=== PATIENT | female | born 1950 | race Caucasian/White ===

== ENCOUNTER 2016-06-14 09:03 | Inpatient (IN) | payer MEDICARE ==
[2016-06-14] VITALS (7 sets, daily range): BP systolic 109–124; BP diastolic 45–76; PULSE 80–101; RESP 14–22; O2SAT 93–99
[~2016-06-14] VITALS: Ht 157.5 cm; Wt 68.5 kg
[~2016-06-14 09:03] MED LIST: EXCEDRIN PO; HYDR-4003 PO; HYDR25TA4 PO; LISI10TA PO; LORA0.5T PO; LOVA20TA PO
[2016-06-14] MEDS ORDERED: 0.9% Sodium Chloride 1,000 ML IV ONE ×2 (09:45→11:20)
--- NOTE | 2016-06-14 09:57 | ED.REPORT ---
HPI-General Illness Date of Service Jun 14, 2016 ED Provider: Shashank Ravi MD Pt is a 66 y/o female w/ a hx of pancreatic cancer, HTN, presenting to the ED due to fever onset this morning. She went in to get a biopsy this morning and it was discovered that she had a fever of 38.4 C and oxygen saturation of 86% on RA. She did not realize that she had a fever. She c/o associated mild diaphoresis, mild cough. Pt denies chills, nausea, vomiting, increase in typical abdominal pain, dysuria. Oncologist: Dr. Locke Nursing Notes Stated Complaint: FEVER Chief Complaint: General Complaint Nursing Notes Reviewed: Yes Allergies: Coded Allergies: No Known Allergies (Unverified , 06/14/16) Scheduled Hydrochlorothiazide (Hydrochlorothiazide) 25 Mg Tablet 25 MG PO DAILY Lisinopril (Lisinopril) 10 Mg Tablet 5 MG PO DAILY Lovastatin (Lovastatin) 20 Mg Tablet 20 MG PO HS Scheduled PRN ([Excedrin 250 Mg]) 2 TAB PO DAILY PRN PRN For Headache Hydrocodone-Acetaminophen 5-325 mg (Hydrocodone-Acetaminophen 5-325 mg) 1 Each Tablet 1-2 TABLET PO Q6HRS PRN PRN PRN For Pain General Time Seen by MD: 09:17 Chief Complaint Fever Hx Obtained From: Patient Arrived By: Walk-in Sudden in Onset?: No Onset Occurred: 1 - 4 hours ago Symptom Duration: Since onset Location: : Abdomen Quality: Painful Severity: Current: Mild Severity: Maximum: Mild Recent Healthcare: Recent doctor visit, Recent testing Past Medical History Past Medical History Notes: Oncology: Dr. Locke Past Medical History Pancreatic cancer Hypertension Past Surgical History Partial knee replacement Smoking History Former Smoker Social History Alcohol Use: 1-3 per day Drug Use: Denies drug use Ambulatory Status Independent Review of Systems Full Review of Systems Constitutional: Reports: Fever, Denies: Chills Respiratory: Reports: Non-productive cough, Denies: Shortness of breath Cardiovascular: Denies: Chest pain, Dyspnea on exertion GI: Denies: Abdominal pain, Nausea, Vomiting Female: Denies: Dysuria Complete sys rev & neg: except as marked. Physical Exam Vital Signs Vital Signs Date Time Temp Pulse Resp B/P Pulse Ox O2 Delivery O2 Flow Rate FiO2 06/14/16 12:14 86 14 114/45 95 Room Air 06/14/16 11:07 36.8 90 22 115/48 99 Room Air 06/14/16 09:17 37.7 101 22 112/54 93 Nasal Cannula 3 Initial VS: Reviewed, Vital signs abnormal Head / Eyes: Atraumatic, Normocephalic, PERRL ENT: Mucous membranes moist, Conjunctiva normal, No scleral icterus Neck: Supple, Full range of motion Cardiovascular: Regular rate & rhythm, Heart sounds normal, Intact distal pulses Extremities: Vascular intact, Neuro intact, No swelling, No tenderness Neurologic: Alert, Oriented, Nonfocal Psychiatric: Mood/affect normal, Behavior normal, Normal thought content General/Constitutional: Awake, Alert, No acute distress, Cooperative, Not toxic appearing Respiratory / Chest: Atraumatic, Breath sounds = bilat, No respiratory distress , No retractions, No stridor, No chest tenderness, No chest wall deformity, No crepitus Scattered wheezes and bibasilar crackles 88% O2 saturation on RA Abdomen: Atraumatic, Soft, No guarding, No rebound, No distention, No palpable mass Mild RUQ and epigastric tenderness - she states this is not increased from her typical Skin: Atraumatic, Color NL, No rash, Warm Color / Condition: Positive: Diaphoresis present (mild) Interpretation & Diagnostics Lab Results Interpretation Result Diagram: 06/14/16 1032 06/14/16 1032 Test 06/14/16 00:00 06/14/16 10:03 06/14/16 10:32 Urine Legionella pneumophilia Ag Negative (Negative) Urine Color Yellow (YELLOW) Urine Appearance Hazy (CLEAR,HAZY) Urine pH 6.0 (5.0-8.0) Urine Specific Joffre 1.010 (1.003-1.035) Urine Protein Negativemg/dL (NEG,TRACE) Urine Glucose (UA) Negativemg/dL (NEGATIVE) Urine Ketones Negativemg/dL (NEGATIVE) Urine Occult Blood Trace (NEGATIVE) Urine Nitrite Negative (NEGATIVE) Urine Bilirubin Negative (NEGATIVE) Urine Urobilinogen Normalmg/dL (NORMAL) Urine Leukocyte Esterase Trace (NEGATIVE) Urine RBC 0-2/hpf (0-2) Urine WBC 0-5/hpf (0-5) Urine Epithelial Cells Occasional/hpf (NONE-MOD) Urine Crystals None seen (NONE SEEN) Urine Bacteria Moderate/hpf (NONE-FEW) Urine Hyaline Casts None/lpf (NONE) Urine Granular Casts None seen (NONE SEEN) Urine Waxy Casts None seen (NONE SEEN) Urine Red Blood Cell Casts None seen (NONE SEEN) Urine White Blood Cell Casts None seen (NONE SEEN) Urine Mucus None seen (None Seen) Urine Trichomonas None seen (NONE SEEN) Urine Yeast None (NONE SEEN) Urinalysis Comment None Urine Culture Reflexed Indicated White Blood Count 7.9th/mm3 (3.8-10.1) Red Blood Count 4.45mil/mm3 (3.90-5.20) Hemoglobin 12.1g/dL (12.0-15.6) Hematocrit 36.7% (35.0-46.0) Mean Corpuscular Volume 82.5fL (81-100) Mean Corpuscular Hemoglobin 27.2pg (27.0-35.0) Mean Corpuscular Hemoglobin Concent 33.0% (32.0-37.0) Red Cell Distribution Width 14.4% (12.3-15.4) Platelet Count 284bil/L (150-400) Neutrophils (%) (Auto) 78.8% (40-74) Lymphocytes (%) (Auto) 12.1% (14-46) Monocytes (%) (Auto) 8.3% (4-12) Eosinophils (%) (Auto) 0.1% (0-5) Basophils (%) (Auto) 0.4% (0-3) Sodium Level 137mEq/L (134-144) Potassium Level 3.8mEq/L (3.5-5.2) Chloride Level 96mEq/L (97-108) Carbon Dioxide Level 24mmol/L (18-29) Blood Urea Nitrogen 15mg/dL (8-27) Creatinine 0.75mg/dL (0.57-1.00) Estimat Glomerular Filtration Rate 111mL/min (>59) Glucose Level 112mg/dL (60-99) Lactic Acid Level 0.8mmol/L (0.4-2.0) Calcium Level 9.1mg/dL (8.5-10.1) Magnesium Level 2.0mg/dL (1.6-2.6) Total Bilirubin 0.4mg/dL (0.0-1.2) Aspartate Amino Transf (AST/SGOT) 29U/L (0-50) Alanine Aminotransferase (ALT/SGPT) 23U/L (0-32) Alkaline Phosphatase 136U/L (25-165) Total Protein 7.0g/dL (6.4-8.4) Albumin 3.9g/dL (3.4-5.0) Lipase 140U/L (13-60) X-Ray Chest Interpretation Chest Xray Interpretation: IMPRESSION: Mild stranding at the left lung base best seen behind the heart and also extending laterally. Mild or early pneumonia is the presumed cause. Dictated by: Mumtaz Mariano M.D. on 06/14/2016 at 10:28 Approved by: Mumtaz Mariano M.D. on 06/14/2016 at 10:28 View: Portable, AP & lat Interpretation / Wet Read by: Interpret - Radiologist CT Chest Interpretation IMPRESSION: 1. No acute process. No pulmonary embolus. 2. No change in multiple metastases within the abdomen, and addition to the pancreatic tail mass. Dictated by: Grant Espinal M.D. on 06/14/2016 at 12:05 Approved by: Grant Espinal M.D. on 06/14/2016 at 12:10 Study type: CT pulm angiogram Interpretation / Wet Read by: Interpret - Radiologist Re-Eval/Medical Decision Med Decision/Clinical Course 66-year-old oncology patient with pancreatic mass, fever and hypoxemia. She does have an infiltrate on her chest x-ray. Surprisingly well. However, her O2 sats are below normal. CT angio exculed PE. Bili normal, doubt source is biliary. Started IV antibiotics, will admit Time of Eval: 11:30 Re-Evaluation/Progress Note: Pt rechecked. Pt informed of need for admission for further evaluation. Pt understands and agrees with plan for admission. All questions addressed. Consultation #1: Referral / Consult Name: Fernando Rider MD Call Returned at: 11:28 Client Success Director: Agrees with eval, Agrees with plan Note: Case discussed with pt's oncologist. Agrees with plan for admission and will consult. Requests a flu swab. Consultation #2: Referral / Consult Name: Genesis Braswell DO Consulted With: Hospitalist Call Returned at: 12:17 Client Success Director: Will see patient, Agrees with eval, Agrees with plan, Accepts admit Counseled Regarding: Diagnosis, Lab results, Need for admission Discharge & Departure Primary Impression: Left lower lobe pneumonia Pneumonia type: due to unspecified organism Qualified Code: J18.9 - Pneumonia, unspecified organism Additional Impressions: Hypoxia Metastasis from pancreatic cancer Disposition: ADMITTED TO HOSPITAL Discharge Condition All VS Reviewed: Yes Condition: Stable Referrals: Sanju Longo MD (PCP) Scribe Attestation Portions of this note were transcribed by Familia Scherer. I, Dr. Ravi personally performed the history, physical exam and medical decision-making; I reviewed and confirmed the accuracy of the information in the transcribed note. Signed by Samantha King, 06/14/16 - 1000 copies to: Fernando Rider MD; Sanju Longo MD, Donald L MD Jun 14, 2016 09:57 FAMILIA SCHERER Jun 14, 2016 10:03
--- NOTE | 2016-06-14 10:30 | DRSVH ---
PROCEDURE: X-RAY CHEST, TWO VIEWS ([id number]) INDICATIONS: fever and cough TECHNIQUE: 2 views of the chest were acquired. COMPARISON: Outside Film, CR, XR CHEST 2VW, 06/03/2016, 9:39. FINDINGS: Surgical changes and devices: None. Lungs and pleura: No pleural effusions or pneumothorax. Lungs are abnormal with mild left lower lob e pneumonia pattern stranding behind the heart. Mediastinum: Mediastinal contours are normal. Heart size is normal. Bones and chest wall: No suspicious bony abnormalities. Soft tissues appear unremarkable. IMPRESSION: Mild stranding at the left lung base best seen behind the heart and also extending latera lly. Mild or early pneumonia is the presumed cause. Dictated by: Mumtaz Mariano M.D. on 06/14/2016 at 10:28 Approved by: Mumtaz Mariano M.D. on 06/14/2016 at 10:28
[2016-06-14 10:35] LABS: APPEARANCE,URINE HAZY (CLEAR,HAZY); COLOR,URINE YELLOW (YELLOW); OCCULT BLOOD,URINE TRACE (NEGATIVE); UROBILINOGEN,URINE NORMAL (NORMAL)
[2016-06-14 10:36] LABS: BASOPHILS % (AUTO) 0.4 % (0-3); EOSINOPHILS % (AUTO) 0.1 % (0-5); MONOCYTES % (AUTO) 8.3 % (4-12); Mean Corpuscular Hemoglobin 27.2 pg (27.0-35.0); Mean Corpuscular Volume 82.5 fL (81-100); NEUTROPHILS % (AUTO) 78.8 % (40-74); Platelet Count 284 bil/L (150-400)
[2016-06-14] MEDS ORDERED: levoFLOXacin Inj 750 MG in IV Premix 1 EACH IV ONE (11:10)
[2016-06-14] MEDS ORDERED: HYDROcodone-APAP 5-325 mg Tablet PO ONE (11:35)
--- NOTE | 2016-06-14 12:11 | DRSVH ---
PROCEDURE: CT ANGIO CHEST PULMONARY EMBOLISM ([id number]) INDICATIONS: hypoxemia, malignancy TECHNIQUE: After the administration of intravenous contrast, 2 mm thick sections acquired from the pulmonary api ttae to the posterior costophrenic angles. 3-dimensional maximum intensity projection (MIP) coronal a nd sagittal reformats were then acquired through the thorax. For radiation dose reduction, the follo wing was used: automated exposure control, adjustment of mA and/or kV according to patient size. COMPARISON: Outside Film, CT, CT CHEST ABD PELVIS W CON, 06/03/2016, 13:34. FINDINGS: Image quality: Excellent. Pulmonary arteries: Pulmonary arteries are normal in size, and demonstrate no intraluminal filling d efects to suggest central pulmonary embolism. Lungs and pleura: Increased bibasilar streaky opacities present, consistent with atelectasis superimp osed on scarring. Scarring within the right upper lobe anteromedially is present. Scarring within the right upper lobe anteriorly is present. Scarring within the lateral lingula is present. No change in 2 mm diameter nodule within the right lower lobe posteriorly.. No pleural effusions or pneumothorax . Central and peripheral airways are patent. Mediastinum: Heart size is normal, without pericardial effusion. No mediastinal or hilar adenopathy . Thoracic aorta is normal in caliber and enhancement. Esophagus is normal in caliber, without hiat al hernia. Bones and chest wall: No suspicious bony lesions. Ribs and thoracic spine appear intact throughout. Thyroid gland is within normal limits. No axillary or supraclavicular adenopathy. Abdomen: Visualized portions of the upper abdomen demonstrate multiple hepatic, pancreatic tail, spl enic hilar, portocaval tayler, and left adrenal masses, as before. IMPRESSION: 1. No acute process. No pulmonary embolus. 2. No change in multiple metastases within the abdomen, and addition to the pancreatic tail mass. Dictated by: Grant Espinal M.D. on 06/14/2016 at 12:05 Approved by: Grant Espinal M.D. on 06/14/2016 at 12:10
[2016-06-14] MEDS ORDERED: Polyethylene Glycol (PEG) 17 Gm Powder PO PRN (12:50)
[2016-06-14] MEDS ORDERED: Ondansetron 2 mg/mL 2 mL Inj IVPUSH PRN (12:50)
[2016-06-14] MEDS ORDERED: Alum-Mag Hydrox-Simeth 30 mL Suspension PO PRN (12:50)
[2016-06-14] MEDS ORDERED: Albuterol 2.5 mg/3 mL Inhalation Solution NEB PRN (12:55)
[2016-06-14] MEDS ORDERED: Albuterol-Ipratropium 3 mL Inhalation Solution NEB PRN (12:55)
--- NOTE | 2016-06-14 13:04 | PCM.HPMED ---
Subjective Date of Service Jun 14, 2016 Primary Provider: Admitting Physician: Genesis Braswell DO Primary Care Physician: Sanju Longo MD Attending Physician: Genesis Braswell DO Admit Status: From the Emergency Department Chief Complaint: Fever, community-acquired pneumonia, recent diagnosis of pancreatic cancer, hypertension History of Present Illness: The patient is a 66-year-old lady w with multiple mass lesions in the liver and a mass in the tail of the pancreas highly suspicious for metastatic pancreatic cancer of the tail of the pancreas. She was on a vacation [facility] 2 weeks ago as mentioned she was diagnosed with pancreatic cancer. Patient was subsequently seen by oncologist, Dr. Jacklyn alvarez. The patient was waiting to undergo an ultrasound-guided biopsy of one of the liver lesions for tissue diagnosis and preparation of initiation of treatment. She had been sent for portal catheter placement for surgical consultation and a port placement is planned for June 30. She was in the hospital for the ultrasound-guided biopsy when she was noted to have cough, low oxygenation of 88%, elevated temperature and thus was sent to the ER. In the ER patient was noted to have 101 F, white count 7.9 lipase was 140 bilirubin levels were normal chest x-ray showed left basilar infiltrate and concern for mild pneumonia. CTA of chest showed no acute findings. She was noted to be saturating 86-92% on room air. She was given 1 dose of Levaquin 750 mg IV and hydrocortisone for pain. The patient was sent for blood culture. Patient is admitted to [facility] with an inpatient for hypoxia secondary to community- acquired pneumonia , pancreatic cancer metastases to liver that will require a biopsy. The patient is comfortabl, not coughing. States her hypertension is well controlled on her current medication. Review of Systems: Review of systems is negative for urinary symptoms, constipation, diarrhea, nausea and vomiting. She is endorsing some level of cough, nonspecific abdominal pain which she is rating it 5 out of 10 currently. She denies chest pain dizziness. States her mood has been low hearing the cancer news and she feels numb at times. Allergies Coded Allergies: No Known Allergies (Unverified , 06/14/16) PMH Social History Hx Alcohol Use: Yes (drink of hard liquor daily) Hx Substance Use: No Smoking Status: Former Smoker Exam Vital Signs Vital Sign - Last Date Time Temp Pulse Resp B/P Pulse Ox O2 Delivery O2 Flow Rate FiO2 06/14/16 12:14 86 14 114/45 95 Room Air 06/14/16 11:07 36.8 06/14/16 09:17 3 Exam Gen.: No acute distress HEENT exopthalmosis of eyes Heart: Regular rate and rhythm no S3-S4 murmurs Lungs: Clear to auscultation, L sided crackles , negative for wheezes Abdomen: Mild tenderness over the epigastrium, normal bowel sounds, nondistended ext: Negative for edema Psych: Mood depressed, affect is sad Neuro: No focal deficits Lab and Diagnostics Result Diagram: 06/14/16 1032 06/14/16 1032 Microbiology Blood cultures remained pending X-Rays, CTs and MRIs [facility] Diagnostic Imaging Department [place], [place] [id number] Patient Name: ELLYN DOUGLAS MR#: [id number] Location: [facility] [place] Ordering Phys: Shashank Ravi MD Date of Service: 06/14/16 0945 PROCEDURE: X-RAY CHEST, TWO VIEWS ([id number]) INDICATIONS: fever and cough TECHNIQUE: 2 views of the chest were acquired. COMPARISON: Outside Film, CR, XR CHEST 2VW, 06/03/2016, 9:39. FINDINGS: Surgical changes and devices: None. Lungs and pleura: No pleural effusions or pneumothorax. Lungs are abnormal with mild left lower lobe pneumonia pattern stranding behind the heart. Mediastinum: Mediastinal contours are normal. Heart size is normal. Bones and chest wall: No suspicious bony abnormalities. Soft tissues appear unremarkable. IMPRESSION: Mild stranding at the left lung base best seen behind the heart and also extending laterally. Mild or early pneumonia is the presumed cause. Dictated by: Mumtaz Mariano M.D. on 06/14/2016 at 10:28 Approved by: Mumtaz Mariano M.D. on 06/14/2016 at 10:28 Assessment & Plan #1 hypoxia secondary to pneumonia, community-acquired: -- Continue Levaquin 750 every 24 hours -- Urine strep, Legionella antigen were ordered -- Respiratory panel is ordered -- Oxygen as needed -- Albuterol, DuoNeb treatments -- Follow blood cultures -- Tessalon Perles for cough 2. Hypertension: Plan to continue her home medications 3. Hyperlipidemia: We do not have her medication and our formulary. Will discuss the patient tomorrow. 4. Recent diagnosis of pancreatic cancer with liver metastases: -- Dr. Jacklyn Almanza, oncologist is consulted -- Pain control with [place] 5-3 25 one to 2 tablets every 4 when necessary -- Enoxaparin as 40 mg daily subcutaneous DVT prophylaxis enoxaparin IV fluids: In essence 100 mL per hour Diet: Heart healthy Disposition: Expect that we will get the results back and patient would be able to go home in 3 days. Pain Evaluation: Adequate Pain Control VTE Prophylaxis: Sub-Q Enoxaparin Resuscitation Status: CPR: Attempt Resuscitation Genesis Braswell DO Jun 14, 2016 13:04
[2016-06-14] MEDS: 0.9% Sodium Chloride 1,000 ML IV SCH ×2 (13:50→23:50)
--- NOTE | 2016-06-14 15:10 | NUR ---
Admit Pt admitted from ED to [facility] unit - arrived via gurney to room 1016 at 1300. A&ox3, LAYTON, Up to BR upon arrival, IV infusing Levaquin to Right AC = patent no issues, States pain present - but tolerable, VSS - on RA at this time with satjessica WNL, All belongings brought over with pt, Admission documentation completed by Admin RN prior to pt arrival. This RN spoke with re: diet order - order obtained and pt able to order lunch as she was hungry after being NPO for bx that was cancelled. Pt oriented to room. Call light in reach and /family at bedside. Care continues.
[2016-06-14] MEDS: HYDROcodone-APAP 5-325 mg Tablet PO PRN ×3 (15:21→21:55)
--- NOTE | 2016-06-14 17:53 | CCS NOTE ---
[facility] [address] [address] MEDICAL ONCOLOGY OFFICE NOTE PATIENT: ELLYN DOUGLAS : 1950 MR#: [id number] DATE: 06/14/2016 JOB ID: [id number] DATE: 06/14/2016 HISTORY OF PRESENT ILLNESS: The patient is a 66-year-old lady whom I had recently seen in initial consultation in the Cancer Center on June 08, 2016, with multiple mass lesions in the liver and a mass in the tail of the pancreas highly suspicious for metastatic pancreatic cancer of the tail of the pancreas. The patient was waiting to undergo an ultrasound-guided biopsy of one of the liver lesions for tissue diagnosis and preparation of initiation of treatment. She had been sent for portal catheter placement for surgical consultation and a port placement is planned for June 30. I was contacted from the radiology suite this early this morning as the patient was there to undergo the ultrasound-guided liver biopsy with concerns that the patient appeared too ill, with some fever and appearing ill, with also low oxygenation of 88%. I spoke with Solan Eddy RPA, who reported the patient was having a cough and it would not be safe to secure the biopsy due to motion of the cough causing potential liver issues. Therefore, the biopsy was postponed and the patient was sent to the ER. I spoke with the ER physician. The patient was sent for blood culture. I talked to Dr. Ravi of the ER again later in the morning, where the chest x-ray had shown a slight abnormality in the left lung base, but that was too subtle to explain the patient having room-air hypoxia issues. Therefore, I agreed that it would be very useful to obtain a CT angiogram of the chest to rule out PE given the increased risk with metastatic presumed pancreatic cancer. CT angio of the chest was performed showing no evidence of pulmonary embolism. When I visited the patient by the end of the day in the hospital, she appeared much more stable and reports that all these symptoms started early this morning. Even yesterday she was not having any symptoms of an infection. In Radiology she had a temperature of 38.4 and an O2 sat was 86% on room air before receiving any sedation. She was also slightly tachycardic. LABORATORIES: Showed yesterday a white count of 10.5 and today show a white count of 7.9, hemoglobin 12, platelets 284. Chemistry without any significant abnormalities. Blood cultures are pending. Influenza screen was negative. Urinalysis did not show any evidence of UTI, but mild bacteria with culture pending. OBJECTIVE: On exam she is currently having a temperature of 37.7. Does not appear ill. O2 sat is 94% on 2 L. Lungs show coarse breath sounds on the bases. No wheezing. Heart regular. Abdomen soft. ASSESSMENT AND PLAN: A 66-year-old lady with presumed metastatic pancreatic cancer, tissue diagnosis pending. Her primary tumor is in the tail of the pancreas and therefore she has no biliary obstruction. Unfortunately, we had to cancel the ultrasound-guided biopsy of the liver mass for tissue diagnosis early this morning for the above-mentioned symptoms of fever and room air hypoxia and the patient appearing ill. A CT angio has ruled out PE. She might have a respiratory infection that could be either viral or bacterial. When I saw her in the afternoon, she did not appear toxic. I fully agree with the empiric antibiotics with levofloxacin and the prophylactic dose of Lovenox for thrombosis prophylaxis. I am hoping that if her condition improves, as I had spoken to Sloan Eddy, CORY of Radiology, to consider doing the ultrasound-guided liver biopsy before discharge from this hospitalization.
[2016-06-15] VITALS (8 sets, daily range): BP systolic 104–134; BP diastolic 62–70; PULSE 74–94; RESP 16–19; O2SAT 87–97
--- NOTE | 2016-06-15 02:32 | NUR ---
Pain Patient complaining of 8/10 abd pain @ HS. Received two Pall Mall with effective results. Resting with eyes closed upon reassessment.
[2016-06-15] MEDS: HYDROcodone-APAP 5-325 mg Tablet PO PRN ×6 (02:40→21:15)
--- NOTE | 2016-06-15 05:29 | PCM.PNMED ---
Subjective Date of Service Jun 15, 2016 Subjective Patient is seen and examined yesterday for respiratory panel returned positive for RSV and now she is under respiratory isolation. She states she is feeling a lot better not coughing as much, however her appetite is not great. She has met with her oncologist today who informed her that she can get the ultrasound- guided biopsy done on Monday. She had no more fevers after coming here. Exam Vital Signs Vital Sign - Last Date Time Temp Pulse Resp B/P Pulse Ox O2 Delivery O2 Flow Rate FiO2 06/15/16 00:20 36.4 80 16 117/70 95 Room Air 06/14/16 09:17 3 Intake and Output 06/14/16 06/14/16 06/15/16 Cumulative From/Thru 15:00 23:00 07:00 06/14/16 09:17 - 06/14/16 18:38 Intake Total 1000 ml 839 ml 1839 ml Output Total 200 ml 200 ml Balance 1000 ml 639 ml 1639 ml Intake Oral 236 ml 236 ml IV Total 1000 ml 603 ml 1603 ml Output Urine Total 200 ml 200 ml # Voids 2 2 # Bowel Movements 1 1 Exam Gen.: No acute distress, sitting up in bed reading HEENT: Normocephalic, atraumatic Heart: Regular rate and rhythm no S3-S4 murmurs Lungs: Positive for diffuse wheezing, negative for crackles at [place] Abdomen: Nontender nondistended, normal bowel sounds Psych: Negative for anxiety Neuro: No focal deficits IVs and Medications IV Fluids None Medications Reviewed: Medications were reviewed in detail Lab and Diagnostics Laboratory Tests Test 06/15/16 06:03 White Blood Count 5.4th/mm3 (3.8-10.1) Red Blood Count 3.78mil/mm3 (3.90-5.20) Hemoglobin 10.2g/dL (12.0-15.6) Hematocrit 31.9% (35.0-46.0) Mean Corpuscular Volume 84.4fL (81-100) Mean Corpuscular Hemoglobin 27.0pg (27.0-35.0) Mean Corpuscular Hemoglobin Concent 32.0% (32.0-37.0) Red Cell Distribution Width 14.6% (12.3-15.4) Platelet Count 227bil/L (150-400) Neutrophils (%) (Auto) 65.3% (40-74) Lymphocytes (%) (Auto) 18.7% (14-46) Monocytes (%) (Auto) 13.5% (4-12) Eosinophils (%) (Auto) 1.9% (0-5) Basophils (%) (Auto) 0.4% (0-3) Sodium Level 138mEq/L (134-144) Potassium Level 3.9mEq/L (3.5-5.2) Chloride Level 101mEq/L (97-108) Carbon Dioxide Level 24mmol/L (18-29) Blood Urea Nitrogen 11mg/dL (8-27) Creatinine 0.67mg/dL (0.57-1.00) Estimat Glomerular Filtration Rate 126mL/min (>59) Glucose Level 98mg/dL (60-99) Calcium Level 8.3mg/dL (8.5-10.1) Total Bilirubin 0.2mg/dL (0.0-1.2) Aspartate Amino Transf (AST/SGOT) 29U/L (0-50) Alanine Aminotransferase (ALT/SGPT) 20U/L (0-32) Alkaline Phosphatase 112U/L (25-165) Total Protein 5.2g/dL (6.4-8.4) Albumin 3.1g/dL (3.4-5.0) Microbiology 06/14/16 Blood Culture - Preliminary, Resulted NO GROWTH AFTER 24 HOURS 06/15/16 Adenovirus DNA (PCR) - Final, Complete Not Detected 06/15/16 Coronavirus 229E PCR - Final, Complete Not Detected 06/15/16 Coronavirus HKU1 PCR - Final, Complete Not Detected 06/15/16 Coronavirus NL63 PCR - Final, Complete Not Detected 06/15/16 Coronavirus OC43 PCR - Final, Complete Not Detected 06/15/16 Influenza Type A (PCR) - Final, Complete Not Detected 06/15/16 Influenza Type B (PCR) - Final, Complete Not Detected 06/15/16 Human Metapneumovirus (PCR) (WESLEY) - Final, Complete Not Detected 06/15/16 Rhinovirus (PCR)(WESLEY) - Final, Complete Not Detected 06/15/16 Parainfluenza Virus Type 1 (PCR) - Final, Complete Not Detected 06/15/16 Parainfluenza Virus Type 2 (PCR) - Final, Complete Not Detected 06/15/16 Parainfluenza Virus Type 3 (PCR) - Final, Complete Not Detected 06/15/16 Parainfluenza Virus Type 4 (NAAT) - Final, Complete Not Detected 06/15/16 Respiratory Syncytial Virus (PCR)CA - Final, Complete Respiratory Syncytial Virus 06/15/16 Chlamydia pneumoniae (PCR) - Final, Complete Not Detected 06/15/16 Mycoplasma pneumoniae DNA Detection - Final, Complete 06/14/16 Urine Culture - Final, Complete Mixed Urogenital Shey Result Diagram: 06/14/16 1032 06/14/16 1032 Microbiology Blood cultures remained pending X-Rays, CTs and MRIs [facility] Diagnostic Imaging [place] [address] Patient Name: ELLYN DOUGLAS MR#: [id number] Location: [facility] [place] Ordering Phys: Shashank Ravi MD Date of Service: 06/14/16 0945 PROCEDURE: X-RAY CHEST, TWO VIEWS ([id number]) INDICATIONS: fever and cough TECHNIQUE: 2 views of the chest were acquired. COMPARISON: Outside Film, CR, XR CHEST 2VW, 06/03/2016, 9:39. FINDINGS: Surgical changes and devices: None. Lungs and pleura: No pleural effusions or pneumothorax. Lungs are abnormal with mild left lower lobe pneumonia pattern stranding behind the heart. Mediastinum: Mediastinal contours are normal. Heart size is normal. Bones and chest wall: No suspicious bony abnormalities. Soft tissues appear unremarkable. IMPRESSION: Mild stranding at the left lung base best seen behind the heart and also extending laterally. Mild or early pneumonia is the presumed cause. Dictated by: Mumtaz Mariano M.D. on 06/14/2016 at 10:28 Approved by: Mumtaz Mariano M.D. on 06/14/2016 at 10:28 Assessment & Plan #1 acute hypoxia secondary to pneumonia, community-acquired: -- Continue Levaquin 750 every 24 hours -- Urine strep, Legionella antigen were ordered: The status of both negative -- Respiratory panel is ordered: Positive for RSV -- Oxygen as needed -- Albuterol, DuoNeb treatments -- Follow blood cultures: Negative to date -- Ced Chavis for cough Acute RSV infection: -- Patient's hypoxia could be secondary to both viral and bacterial etiologies. 2. Hypertension: Plan to continue her home medications 3. Hyperlipidemia: We do not have her medication and our formulary. Will discuss this with patient and her next visit 4. Recent diagnosis of pancreatic cancer with liver metastases: -- Dr. Jacklyn Almanza, oncologist is consulted: We appreciate their recommendations -- Pain control with [place] 5-3 25 one to 2 tablets every 4 when necessary -- Enoxaparin as 40 mg daily subcutaneous DVT prophylaxis enoxaparin IV fluids: None Diet: Heart healthy Disposition: Expect that patient would be able to go home in 2 days. VTE Prophylaxis: Sub-Q Enoxaparin VTE Mechanical Devices: Intermittant Pneumatic CD Resuscitation Status: CPR: Attempt Resuscitation Genesis Braswell DO Jun 15, 2016 05:29
[2016-06-15 06:26] LABS: BASOPHILS % (AUTO) 0.4 % (0-3); EOSINOPHILS % (AUTO) 1.9 % (0-5); MONOCYTES % (AUTO) 13.5 % (4-12); Mean Corpuscular Volume 84.4 fL (81-100); NEUTROPHILS % (AUTO) 65.3 % (40-74); Platelet Count 227 bil/L (150-400)
[2016-06-15] MEDS: levoFLOXacin Inj 750 MG in IV Premix 1 EACH IV SCH (07:58)
--- NOTE | 2016-06-15 09:50 | NUR ---
Micro result/Pain/Sp02 Micro lab called with +RSV result at this time. Reported to MD. Patient now on droplet precautions. Pain consistently 4-6/10. Patient taking x1 [place] only to maintain pain control as x2 makes her too sleepy. Continues to have intermittent cough. Denies SOB except with exertion, becomes easily fatigued, CPOx on with Sp02 at 94% on RA.
--- NOTE | 2016-06-15 13:18 | NUR ---
Social Work - Initial Assessment Data: Pt is a 66 y/o female admitted on 06/14/16 for pneumonia and pancreatic cancer per H&P. Insurance is Medicare and AARP supplemental and she could not identify her PCP but confirm she does have one. EMR reviewed. Pt's readmission score is not available. CARLITA mt with pt at bedside to discuss discharge planning. CARLITA role explained. Pt is alert and oriented x3. Pt resides in a single level condo with no internal or external stairs. Pt reports no issues with ambulation, is independent at baseline, and remains independent with ADLs. Pt has no HH or SNF history. Pt reports that she and her are in process of completing DPOA/Advanced Directive and will provide a copy to the hospital when completed. Pt has no fci care or VA benefits. Per oncology she is scheduled to undergo biopsy. Pt's Alex [phone] to provide transport home at discharge in POV. No needs anticipated at this time. SW provided phone number and plan on white board in room. SW will continue to follow. Assessment: Pt who is independent at baseline. Plan: Pt's will provide transport home at discharge in POV. No needs anticipated. SW will continue to follow. NANCY Guerrero Addendum: 06/15/16 at 1349 by LU HAHN SS Amended: Links added.
--- NOTE | 2016-06-15 18:30 | CCS NOTE ---
[facility] [address] [address] MEDICAL ONCOLOGY OFFICE NOTE PATIENT: ELLYN DOUGLAS : 1950 MR#: [id number] DATE: 06/14/2016 JOB ID: [id number] DATE: 06/15/2016 SUBJECTIVE: The patient has been feeling better, has remained afebrile. Her respiratory culture was positive for RSV. Influenza was negative. Her O2 sat is improved. She is now 93% to 95% on room air. LABORATORIES: Show a drop of hemoglobin to 10.2, likely due to volume expansion. Electrolytes, creatinine and LFTs stable. EXAMINATION: On exam, she is more comfortable, does not appear toxic and states that her cough is reduced. No rash. ASSESSMENT AND PLAN: A 66-year-old lady with mass in the tail of the pancreas and multiple liver masses pending tissue biopsy for confirmation of diagnosis of suspected pancreatic cancer. Unfortunately then, she showed for the biopsy yesterday and had fever and cough and biopsy was canceled and she was admitted through the emergency department. It turns out that this was an RSV infection and she has become quickly afebrile. Her cough is getting better, but still not completely resolved. Her room-air hypoxia has resolved as well. Her CT angio of the chest did not show a pulmonary embolism. I think per discretion of the hospitalist team, she could probably be discharged tomorrow. I would appreciate if her ultrasound-guided biopsy of the liver mass could be scheduled upon discharge for this coming Monday with Sloan Eddy at Radiology on June 20.
--- NOTE | 2016-06-16 02:29 | NUR ---
Pain Patient rating abd pain 8/10. Requesting two [place] tabs for pain management @ HS. Noted to be resting with eyes closed upon reassessment. No further c/o breakthrough pain. Will continue Q1hour rounding.
--- NOTE | 2016-06-16 05:18 | PCM.PNMED ---
Subjective Date of Service Jun 16, 2016 Exam Vital Signs Vital Sign - Last Date Time Temp Pulse Resp B/P Pulse Ox O2 Delivery O2 Flow Rate FiO2 06/15/16 20:10 36.7 85 17 105/62 93 Room Air 06/14/16 09:17 3 Intake and Output 06/15/16 06/15/16 06/16/16 Cumulative From/Thru 15:00 23:00 07:00 06/14/16 09:17 - 06/15/16 18:57 Intake Total 760 ml 3931 ml Output Total 600 ml 1400 ml Balance 160 ml 2531 ml Intake Oral 760 ml 1196 ml IV Total 2735 ml Output Urine Total 600 ml 1400 ml # Voids 2 # Bowel Movements 1 Lab and Diagnostics Result Diagram: 06/15/16 0603 06/15/16 0603 Microbiology Blood cultures remained pending X-Rays, CTs and MRIs [facility] Diagnostic [place] [address] Patient Name: ELLYN DOUGLAS MR#: [id number] [place] [facility] [place] Ordering Phys: Shashank Ravi MD Date of Service: 06/14/16 0945 PROCEDURE: X-RAY CHEST, TWO VIEWS ([id number]) INDICATIONS: fever and cough TECHNIQUE: 2 views of the chest were acquired. COMPARISON: Outside Film, CR, XR CHEST 2VW, 06/03/2016, 9:39. FINDINGS: Surgical changes and devices: None. Lungs and pleura: No pleural effusions or pneumothorax. Lungs are abnormal with mild left lower lobe pneumonia pattern stranding behind the heart. Mediastinum: Mediastinal contours are normal. Heart size is normal. Bones and chest wall: No suspicious bony abnormalities. Soft tissues appear unremarkable. IMPRESSION: Mild stranding at the left lung base best seen behind the heart and also extending laterally. Mild or early pneumonia is the presumed cause. Dictated by: Mumtaz Mariano M.D. on 06/14/2016 at 10:28 Approved by: Mumtaz Mariano M.D. on 06/14/2016 at 10:28 Assessment & Plan #1 acute hypoxia secondary to pneumonia, community-acquired: -- Continue Levaquin 750 every 24 hours -- Urine strep, Legionella antigen were ordered: The status of both negative -- Respiratory panel is ordered: Positive for RSV -- Oxygen as needed -- Albuterol, DuoNeb treatments -- Follow blood cultures: Negative to date -- Ced Chavis for cough Acute RSV infection: -- Patient's hypoxia could be secondary to both viral and bacterial etiologies. 2. Hypertension: Plan to continue her home medications 3. Hyperlipidemia: We do not have her medication and our formulary. Will discuss this with patient and her next visit 4. Recent diagnosis of pancreatic cancer with liver metastases: -- Dr. Jacklyn Almanza, oncologist is consulted: We appreciate their recommendations -- Pain control with [place] 5-3 25 one to 2 tablets every 4 when necessary -- Enoxaparin as 40 mg daily subcutaneous DVT prophylaxis enoxaparin IV fluids: None Diet: Heart healthy Disposition: Expect that patient would be able to go home in 2 days. VTE Prophylaxis: Sub-Q Enoxaparin VTE Mechanical Devices: Intermittant Pneumatic CD Resuscitation Status: CPR: Attempt Resuscitation Genesis Braswell DO Jun 16, 2016 05:18
[2016-06-16 05:33] VITALS: BP 152/79; PULSE 102; RESP 17; O2SAT 92
[2016-06-16] MEDS: HYDROcodone-APAP 5-325 mg Tablet PO PRN (05:34)
[2016-06-16 06:54] LABS: BASOPHILS % (AUTO) 0.3 % (0-3); EOSINOPHILS % (AUTO) 3.9 % (0-5); MONOCYTES % (AUTO) 13.3 % (4-12); Mean Corpuscular Hemoglobin 26.8 pg (27.0-35.0); Mean Corpuscular Volume 83.4 fL (81-100); NEUTROPHILS % (AUTO) 61.7 % (40-74); Platelet Count 258 bil/L (150-400)
[2016-06-16 07:45] VITALS: PULSE 73; RESP 16; O2SAT 97
[2016-06-16 08:46] LABS: Unsaturated Iron Binding 175.1 ug/dL
--- NOTE | 2016-06-16 09:01 | PCM.DIMED ---
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 Test Results Intake and Output 06/15/16 06/15/16 06/16/16 Cumulative From/Thru 15:00 23:00 07:00 06/14/16 09:17 - 06/16/16 05:33 Intake Total 760 ml 1050 ml 4981 ml Output Total 600 ml 1350 ml 2750 ml Balance 160 ml -300 ml 2231 ml Intake Oral 760 ml 1050 ml 2246 ml IV Total 2735 ml Output Urine Total 600 ml 1350 ml 2750 ml # Voids 2 # Bowel Movements 0 1 Diet Heart Healthy Activity No restrictions Call your provider Fever or Chills, Shortness of breath, Bleeding, Chest pain, Vomitting, Excessive diarrhea, Weakness (unilateral) Patient Instructions Follow-up plan Please schedule U/S guided biopsy on 06/20/[address] Locke after the biopsy (in 7-10 days) F/U with PCP in 2 weeks Genesis Braswell DO Jun 16, 2016 09:01
[2016-06-16] MEDS ORDERED: EXCEDRIN PO (09:03)
[2016-06-16] MEDS ORDERED: LEVO750T9 PO (09:03)
[2016-06-16] MEDS ORDERED: ALBU18HF INH (09:03)
[2016-06-16] MEDS ORDERED: FERR-83 PO (09:05)
[2016-06-16] MEDS ORDERED: POLY17PO6 PO (09:06)
--- NOTE | 2016-06-16 09:10 | PCM.DC.MED ---
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 COMPARISON: Outside Film, CR, XR CHEST 2VW, 06/03/2016, 9:39. FINDINGS: Surgical changes and devices: None. Lungs and pleura: No pleural effusions or pneumothorax. Lungs are abnormal with mild left lower lobe pneumonia pattern stranding behind the heart. Mediastinum: Mediastinal contours are normal. Heart size is normal. Bones and chest wall: No suspicious bony abnormalities. Soft tissues appear unremarkable. IMPRESSION: Mild stranding at the left lung base best seen behind the heart and also extending laterally. Mild or early pneumonia is the presumed cause. Dictated by: Mumtaz Mariano M.D. on 06/14/2016 at 10:28 Approved by: Mumtaz Mariano M.D. on 06/14/2016 at 10:28 Brief History The patient is a 66-year-old lady w with multiple mass lesions in the liver and a mass in the tail of the pancreas highly suspicious for metastatic pancreatic cancer of the tail of the pancreas. She was on a vacation [facility] 2 weeks ago as mentioned she was diagnosed with pancreatic cancer. Patient was subsequently seen by oncologist, Dr. Jacklyn alvarez. The patient was waiting to undergo an ultrasound-guided biopsy of one of the liver lesions for tissue diagnosis and preparation of initiation of treatment. She had been sent for portal catheter placement for surgical consultation and a port placement is planned for June 30. She was in the hospital for the ultrasound-guided biopsy when she was noted to have cough, low oxygenation of 88%, elevated temperature and thus was sent to the ER. In the ER patient was noted to have 101 F, white count 7.9 lipase was 140 bilirubin levels were normal chest x-ray showed left basilar infiltrate and concern for mild pneumonia. CTA of chest showed no acute findings. She was noted to be saturating 86-92% on room air. She was given 1 dose of Levaquin 750 mg IV and hydrocortisone for pain. The patient was sent for blood culture. [place] [facility] [place] for hypoxia secondary to community- acquired pneumonia , pancreatic cancer metastases to liver that will require a biopsy. The patient is comfortabl, not coughing. States her hypertension is well controlled on her current medication. Hospital Course #1 acute hypoxia secondary to pneumonia, community-acquired: -- Continue Levaquin 750 every 24 hours -- Urine strep, Legionella antigen were ordered: The status of both negative -- Respiratory panel is ordered: Positive for RSV -- Oxygen as needed: She did not need oxygen during this stay -- Albuterol, DuoNeb treatments -- Follow blood cultures: Negative to date -- Ced Chavis for cough Acute RSV infection: -- Patient's hypoxia could be secondary to both viral and bacterial etiologies. -- Improving at the time of discharge. Patient is saying her cough is improved she is eating better, breathing better and she experienced no overnight fevers 2. Hypertension: We continued her home medications 3. Hyperlipidemia: Patient is agreeable to starting his statin after she goes home as we do not have her medication formulary 4. Recent diagnosis of pancreatic cancer with liver metastases: -- Dr. Jacklyn Almanza, oncologist is consulted: We appreciate their recommendations: It appears that patient can be discharged home if she is medically okay. She is to follow up on Monday for ultrasounded guided biopsy -- Pain control with [place] 5-3 25 one to 2 tablets every 4 when necessary -- Enoxaparin as 40 mg daily subcutaneous DVT prophylaxis enoxaparin IV fluids: None Diet: Heart healthy Exam Vital Signs (Last) Date Time Temp Pulse Resp B/P Pulse Ox O2 Delivery O2 Flow Rate FiO2 06/16/16 07:45 73 16 97 Room Air 06/16/16 05:33 36.7 152/79 06/14/16 09:17 3 Test 06/14/16 00:00 06/14/16 10:03 06/14/16 10:32 06/16/16 06:13 Urine Legionella pneumophilia Ag Negative (Negative) Urine Color Yellow (YELLOW) Urine Appearance Hazy (CLEAR,HAZY) Urine pH 6.0 (5.0-8.0) Urine Specific [place] 1.010 (1.003-1.035) Urine Protein Negativemg/dL (NEG,TRACE) Urine Glucose (UA) Negativemg/dL (NEGATIVE) Urine Ketones Negativemg/dL (NEGATIVE) Urine Occult Blood Trace (NEGATIVE) Urine Nitrite Negative (NEGATIVE) Urine Bilirubin Negative (NEGATIVE) Urine Urobilinogen Normalmg/dL (NORMAL) Urine Leukocyte Esterase Trace (NEGATIVE) Urine RBC 0-2/hpf (0-2) Urine WBC 0-5/hpf (0-5) Urine Epithelial Cells Occasional/hpf (NONE-MOD) Urine Crystals None seen (NONE SEEN) Urine Bacteria Moderate/hpf (NONE-FEW) Urine Hyaline Casts None/lpf (NONE) Urine Granular Casts None seen (NONE SEEN) Urine Waxy Casts None seen (NONE SEEN) Urine Red Blood Cell Casts None seen (NONE SEEN) Urine White Blood Cell Casts None seen (NONE SEEN) Urine Mucus None seen (None Seen) Urine Trichomonas None seen (NONE SEEN) Urine Yeast None (NONE SEEN) Urinalysis Comment None Urine Culture Reflexed Indicated Lactic Acid Level 0.8mmol/L (0.4-2.0) Magnesium Level 2.0mg/dL (1.6-2.6) Lipase 140U/L (13-60) White Blood Count 5.9th/mm3 (3.8-10.1) Red Blood Count 3.92mil/mm3 (3.90-5.20) Hemoglobin 10.5g/dL (12.0-15.6) Hematocrit 32.7% (35.0-46.0) Mean Corpuscular Volume 83.4fL (81-100) Mean Corpuscular Hemoglobin 26.8pg (27.0-35.0) Mean Corpuscular Hemoglobin Concent 32.1% (32.0-37.0) Red Cell Distribution Width 14.7% (12.3-15.4) Platelet Count 258bil/L (150-400) Neutrophils (%) (Auto) 61.7% (40-74) Lymphocytes (%) (Auto) 20.6% (14-46) Monocytes (%) (Auto) 13.3% (4-12) Eosinophils (%) (Auto) 3.9% (0-5) Basophils (%) (Auto) 0.3% (0-3) Reticulocyte Count,Calculated 0.7% (0.6-2.6) Sodium Level 138mEq/L (134-144) Potassium Level 3.7mEq/L (3.5-5.2) Chloride Level 99mEq/L (97-108) Carbon Dioxide Level 25mmol/L (18-29) Blood Urea Nitrogen 8mg/dL (8-27) Creatinine 0.60mg/dL (0.57-1.00) Estimat Glomerular Filtration Rate 143mL/min (>59) Glucose Level 100mg/dL (60-99) Calcium Level 8.7mg/dL (8.5-10.1) Iron Level 29ug/dL (35-150) Total Iron Binding Capacity 204ug/dL (250-450) Percent Iron Saturation 14%sat (15-50) Unsaturated Iron Binding 175.1ug/dL Ferritin 885ng/mL (13-150) Total Bilirubin 0.2mg/dL (0.0-1.2) Aspartate Amino Transf (AST/SGOT) 28U/L (0-50) Alanine Aminotransferase (ALT/SGPT) 20U/L (0-32) Alkaline Phosphatase 122U/L (25-165) Total Protein 5.6g/dL (6.4-8.4) Albumin 3.4g/dL (3.4-5.0) Microbiology Results Blood cultures remained pending Discharge Medications Discharge Medications Ferrous Sulfate (Ferrous Sulfate) 325 Mg Tablet 325 MG PO BIDWM Prescribed by: GENESIS CONKLIN DO Hydrochlorothiazide (Hydrochlorothiazide) 25 Mg Tablet 25 MG PO DAILY (Reported ) Levofloxacin (Levaquin) 750 Mg Tablet 750 MG PO DAILY Prescribed by: GENESIS CONKLIN DO Lisinopril (Lisinopril) 10 Mg Tablet 5 MG PO DAILY (Reported) Lovastatin (Lovastatin) 20 Mg Tablet 20 MG PO HS (Reported) Polyethylene Glycol 3350 (Miralax) 17 Gm Powd.pack 17 GM PO DAILY Prescribed by: GENESIS CONKLIN DO As needed ([Excedrin 250 Mg]) 2 TAB PO DAILY PRN PRN For Headache Prescribed by: GENESIS CONKLIN DO Albuterol Sulfate (Ventolin HFA Inhaler) 200 Puff/18 Gm Inhaler 1 PUFF INH Q4 PRN PRN For Wheezing Prescribed by: GENESIS CONKLIN DO Hydrocodone-Acetaminophen 5-325 mg (Hydrocodone-Acetaminophen 5-325 mg) 1 Each Tablet 1-2 TABLET PO Q6HRS PRN PRN PRN For Pain (Reported) Additional med instructions Take probiotics with your antibiotic. Followup Plan Follow-up plan Please schedule U/S guided biopsy on 06/20/[address] Locke after the biopsy (in 7-10 days) F/U with PCP in 2 weeks Discharge Diet: Heart Healthy Discharge Activity: No restrictions Genesis Conklin DO Jun 16, 2016 09:10
[2016-06-16 09:12] VITALS: BP 113/68; PULSE 92; RESP 16; O2SAT 92
[2016-06-16] MEDS: levoFLOXacin Inj 750 MG in IV Premix 1 EACH IV SCH (09:14)
--- NOTE | 2016-06-16 10:39 | NUR ---
Social Work- Readiness for Discharge Data: EMR reviewed. Pt is on day 2 of hospitalization for pneumonia and pancreatic cancer per H&P. Pt to discharge later today. Pt reports no issues with ambulation, is independent at baseline, and remains independent with ADLs. Pt's Alex [phone] to provide transport home at discharge in POV. No needs anticipated at this time. SW will continue to follow. Assessment: Pt who is independent at baseline. Plan: Pt's will provide transport home at discharge in POV. No needs anticipated. SW will continue to follow. NANCY Koehler
--- NOTE | 2016-06-16 11:13 | NUR ---
Social Work- Discharge Data: EMR reviewed. Pt is on day 2 of hospitalization for pneumonia and pancreatic cancer per H&P. Pt to discharge today. Pt reports no issues with ambulation, is independent at baseline, and remains independent with ADLs. Pt's Alex [phone] to provide transport home at discharge in POV. No discharge needs. Assessment: Pt who is independent at baseline. Plan: Pt's will provide transport home at discharge in POV. No discharge needs. NANCY Koehler
--- NOTE | 2016-06-16 11:17 | NUR ---
DISCHARGE Patient denies pain. Tolerating liquids PO and her diet well. PO2 on room air-92 %. Denies SOB. Patient has been ambulating independently in the room. Gait is steady. Voiding without any problems. IV saline lock d/cd. Discharge instructions, care notes and prescription was given to the patient and she verbalized understanding. Discharged to home with her and all her personal belongings. (Copy of D/C is in the chart).
[2016-06-20] MEDS ORDERED: LORA0.5T PO (16:28)
[2016-06-21] MEDS ORDERED: MORP-32 PO (08:37)
[2016-06-29] MEDS ORDERED: PROC-4 PO (16:14)
[2016-06-29] MEDS ORDERED: ONDA8TAB7 PO (16:14)
[2016-06-29] MEDS ORDERED: SERT50TA PO (16:14)
[2016-07-20] MEDS ORDERED: DIPH1TAB PO (08:47)
[2016-08-17] MEDS ORDERED: LIPA1CAP3 PO (09:43)
== END 2016-06-16 11:13 | disposition home or self-care (01) | DRG 194 ==
LOC: SED 09:03 → OSC 12:27
PROVIDERS: ADMIT Family Medicine; ATTEND Family Medicine
DX: J18.9 Pneumonia, unspecified organism (principal); C25.2 Malignant neoplasm of tail of pancreas; C78.7 Secondary malignant neoplasm of liver and intrahepatic bile duct; R09.02 Hypoxemia; B97.4 Respiratory syncytial virus as the cause of diseases classified elsewhere; Z87.891 Personal history of nicotine dependence; I10 Essential (primary) hypertension; J22 Unspecified acute lower respiratory infection

== ENCOUNTER 2016-06-30 09:59 | Day surgery (SDC) | payer MEDICARE ==
[2016-06-30] VITALS (11 sets, daily range): BP systolic 114–128; BP diastolic 49–65; PULSE 87–96; RESP 11–16; O2SAT 91–100
[~2016-06-30] VITALS: Ht 157.5 cm; Wt 64.6 kg
[~2016-06-30 09:59] MED LIST changes: +CeFAZolin Inj 2 GM in IV Premix 1 EACH IV ONE; -EXCEDRIN PO; -LOVA20TA PO; +Lactated Ringer's 1,000 ML IV SCH; +MORP-32 PO; +ONDA8TAB7 PO; +PROC-4 PO; +SERT50TA PO
[2016-06-30] MEDS ORDERED: Ondansetron 2 mg/mL 2 mL Inj ONE (10:00)
[2016-06-30] MEDS ORDERED: Dexamethasone 4 mg/mL Inj ONE (10:00)
[2016-06-30] MEDS ORDERED: MetoCLOpramide 5 mg/mL 2 mL Inj ONE (10:00)
[2016-06-30] MEDS ORDERED: Lactated Ringer's 500 ML IV PRN (10:21)
[2016-06-30] MEDS ORDERED: Lactated Ringer's 1,000 ML IV SCH (10:21)
--- NOTE | 2016-06-30 10:21 | PCM.HPANE ---
Patient Data Surgeon Admitting Provider: Attending Provider:Brenden Minaya MD Primary Care Physician:Barney Murry MD Other Provider:Swetha [place] Anesthesia Reason for Visit Pancreatic Cancer Ht/WT & BMI Height (Feet): 5 Height (Inches): 2 Weight (Kilograms): 67.58 Body Mass Index 27.00 Allergies Coded Allergies: No Known Allergies (Unverified , 06/21/16) Past Anesthesia History Anesthesia History: Denies:: Anesthesia Reactions Diabetes History Hx Diabetes?: No MRSA MRSA: No Medications Blood Thinner: Lovenox Hypertension Medication: Yes Home Meds Incl Beta [place]: No Reported Medications Sertraline HCl (Zoloft)50 Mg [id number] Mg PO DAILY Ref 0 06/29/16 Ondansetron ODT (Zofran ODT)8 Mg Tablet8 Mg PO q8hrs prn PRN For Nausea 06/29/16 Prochlorperazine Maleate (Compazine)10 Mg [id number] Mg PO q4hrs prn 06/29/16 Morphine Sulfate ER 15 Mg [id number] Mg PO BID 06/21/16 Lorazepam 0.5 Mg Tablet0.5 Mg PO HS PRN For Insomnia Ref 0 06/20/16 Hydrocodone-Acetaminophen 5-325 mg 1 Each Tablet1-2 Tablet PO Q6HRS PRN PRN For Pain Ref 0 06/08/16 Hydrochlorothiazide 25 Mg [id number] Mg PO DAILY Ref 0 06/08/16 Lisinopril 10 Mg Tablet5 Mg PO DAILY Ref 0 06/08/16 Discontinued Reported Medications Lovastatin 20 Mg Kbgekn29 Mg PO HS #30 TABLET Ref 0 06/08/16 Discontinued Scripts [Excedrin 250 Mg] No Conflict Check2 Tab PO DAILY PRN For Headache #0 Prov:Genesis Braswell DO 06/16/16 History History of ENT Problems?: No HEENT History: Denies:: Sinus Problem Hx of Heart Problems?: Yes Cardiovascular History: Positive for:: Hypertension Denies:: Cardiac Surgery Chest Pain Congestive Heart Failure Edema Heart Murmur Irregular Heartbeat (admits in ST) Pacemaker Rheumatic Fever Hx of Respiratory Problem?: Yes Respiratory History: Positive for:: Pneumonia (06/14/16 admission for) Denies:: Asthma COPD Dyspnea Emphysema Hemoptysis Oxygen Administration Tuberculosis Use of C-PAP Machine Use of Inhalers / NEBS Hx Neurologic Problems?: No Neurological History: Positive for:: Headaches (occasional) Denies:: Alzheimer's Disease CVA Dementia Dizziness Parkinson's Disease Seizures Hx of GI Problems?: Yes Gastrointestinal History: Denies:: Cirrhosis Diverticulitis Gastroesphageal Reflux Gastrointestinal Bleeding Heartburn Hepatitis Hiatal Hernia Rectal Bleeding Other GI Pertinent History: pancreatic ca with mets to liver- current admission problem Hx of Problems?: No Genitourinary History: Denies:: HX of Hemodialysis Kidney Stones Urinary Tract Infection HX of Peritoneal Dialysis: No Female Hx: Denies:: Currently Endometriosis Problems with Breasts? Skin History: Positive for:: History Skin Disorders? (dryness) Denies:: Pressure Ulcers Hx Musculoskeletal Problems?: Yes Musculoskeletal History: Positive for:: Joint Replacement (partial knee replacement) Denies:: Back Injury Musculoskeletal Trauma Hx of Psycho/Social Problems?: No Psycho Social History: Denies:: Anxiety Bipolar Disorder Hx Depression Hx Surgeries?: Yes (partial knee replacement) Hx Any Other Health Problems?: Yes Other History: Positive for:: Cancer (pancreatic current admission problem) Hospitalization Denies:: Endocrine Disease Thyroid Disease History Blood Transfusions: Denies:: Blood Transfuse Reaction Blood Transfusions Hx Diabetes: No Hx Alcohol Use: YesAlcoholic Drinks Per Day: occasionalHx Substance Use: No Smoking Status: Former Smoker Have You Smoked inLast 12 mo: Yes (just recently quit) Stop/Bang Treated for Sleep Apnea?: No Do You Have a CPAP Machine?: No S-Snoring: Do You Snore Loudly: No T-Tired: feel tired, fatigued: No O-Obsered: Observed not breath: No P-Blood Pressure: treated: Yes B- Body Mass Index > 35 kg/m2: No A- Age over 50: Yes N- Neck Large Circumference: No G- Gender Male: No PRASAD Total Score: 2 PRASAD Risk Assessment: Low Risk, <3 Yes Risk Assessment Category Category 1A: Patient has history of documented sleep apnea, and HAS NOT received any narcotic, sedative or anesthesia administration during this stay. Category 1B: Patient has history of documented sleep apnea, and HAS received any narcotic , sedative or anesthesia administration during this stay Category 2: Patient has SUSPECTED Obstructive Sleep Apnea, and HAS received any narcotic , sedative or anesthesia administration during this stay. Category 3: Patient has SUSPECTED Obstructive Sleep Apnea and HAS NOT received narcotic, sedative or anesthesia administration during this stay. Category 4: Outpatient in Procedural Areas with known sleep apnea or who screen positive for High Risk via the STOP/BANG questionnaire. Exam Exam General Appearance: Oriented X3 HEENT/AIRWAY: MP 2 Lungs: Normal Air Movement Heart: Regular Rate/Rhythm Meds/Labs/Diagnostics Admission Meds Current Medications Bupivacaine HCl/ Epinephrine Bitart (Sensorcaine-MPF 0.25%/EPI Inj) 30 ml STK- MED ONCE INJ Last administered on 06/30/16 10:14; Start 06/30/16 at 10:14; Stop 06/30/16 at 10:15; Status DC Heparin Sodium (Porcine) (HepLOK Flush Inj) 1,000 unit STK-MED ONCE IVFLUSH Last administered on 06/30/16 10:14; Start 06/30/16 at 10:14; Stop 06/30/16 at 10: 15; Status DC Plan Impression Patient chart reviewed, patient interviewed and anesthestic plan with risks, benefits, and alternatives discussed, and informed consent obtained. ASA Physical Status: ASA2 Mod Systemic Disease Anesthetic Plan: GA Bene/Risks/Altern/Consents: Yes HP Complete Prior to Induction: Yes Gerard Norton MD Jun 30, 2016 10:21
[2016-06-30] MEDS ORDERED: fentaNYL-PF 50 mCg/mL 2 mL Inj IVPUSH PRN (10:25)
[2016-06-30] MEDS ORDERED: Ondansetron 2 mg/mL 2 mL Inj IVPUSH PRN (10:25)
[2016-06-30] MEDS ORDERED: Dexamethasone 4 mg/mL Inj IVPUSH PRN (10:25)
[2016-06-30] MEDS ORDERED: EPHEDrine Sulfate 50 mg/mL Inj IVPUSH PRN (10:25)
[2016-06-30] MEDS ORDERED: MetoCLOpramide 5 mg/mL 2 mL Inj IVPUSH PRN (10:25)
[2016-06-30] MEDS ORDERED: Phenylephrine 10,000 mCg/mL Inj IVPUSH PRN (10:25)
[2016-06-30] MEDS ORDERED: HYDROmorphone 1 mg/mL Inj IVPUSH PRN (10:25)
[2016-06-30] MEDS ORDERED: Lactated Ringer's 1,000 ML IV ONE (10:45)
[2016-06-30] MEDS ORDERED: CeFAZolin Inj 2 gm / 50mL D5W IV ONE (10:47)
[2016-06-30] MEDS ORDERED: Bupivacaine-MPF 0.25%/EPI 30 mL Inj INJ ONE (11:12)
[2016-06-30] MEDS ORDERED: HepLOK Flush 100 unit/mL 5 mL Inj IVFLUSH ONE (11:12)
--- NOTE | 2016-06-30 12:33 | DRSVH ---
PROCEDURE: X-RAY CHEST ONE VIEW, PORTABLE ([id number]) INDICATIONS: port TECHNIQUE: One view of the chest was acquired. COMPARISON: [facility], CT, CT ANGIO CHEST PE, 06/14/2016, 11:34. Outside Film, CT, CT C HEST ABD PELVIS W CON, 06/03/2016, 13:34. [facility], CR, XR CHEST 2VW, 06/14/2016, 10:09. FINDINGS: Surgical changes and devices: A left chest port is seen with the tip projecting in the upper SVC. Lungs and pleura: No pleural effusions or pneumothorax. Lungs are clear. Mediastinum: Mediastinal contours appear normal. Heart size is normal. Bones and chest wall: No suspicious bony lesions. Overlying soft tissues appear unremarkable. IMPRESSION: Left chest port with the tip projecting in the upper SVC. No pneumothorax. Dictated by: Gerald Araya M.D. on 06/30/2016 at 12:28 Approved by: Gerald Araya M.D. on 06/30/2016 at 12:31
--- NOTE | 2016-06-30 12:52 | PCM.ANEP1 ---
Post Anesthesia Phase 1 PACU Phase 1 Assessment Vital Signs Vital Signs Date Time Temp Pulse Resp B/P Pulse Ox O2 Delivery O2 Flow Rate FiO2 06/30/16 12:45 36.4 90 11 121/56 95 Nasal Cannula 2 06/30/16 12:35 91 11 124/53 96 Nasal Cannula 2 06/30/16 12:30 92 11 125/49 96 Nasal Cannula 2 06/30/16 12:20 36.4 96 13 126/58 93 Room Air 06/30/16 12:15 96 14 128/59 91 Room Air 06/30/16 12:10 95 15 121/52 96 Room Air 06/30/16 12:05 87 13 121/58 100 Simple Mask 8 06/30/16 12:00 89 15 114/56 100 Simple Mask 8 06/30/16 11:57 36.4 91 13 120/51 99 Simple Mask 8 06/30/16 10:53 37.2 96 16 115/60 93 Room Air Anesthetic Administered: GA Level of Alertness: Awake, talking Pain: No Nausea or Vomiting: No Airway Device: Oralpharangeal Airway Oxygen Delivery: Room Air Lungs: Normal Air Movement Gerard Norton MD Jun 30, 2016 12:52
--- NOTE | 2016-06-30 12:56 | PCM.ANEP2 ---
Post Anesthesia Evaluation ASA/CMS Post Anesthesia VS in Patient's Normal Range?: Yes Resp Stable; Airway Patent?: Yes CV Function & Hydration Stable: Yes Mental Status Recovered?: Yes Pain control Satisfactory?: Yes N/V Control Satisfactory?: Yes Gerard Norton MD Jun 30, 2016 12:56
--- NOTE | 2016-07-01 00:41 | OP ---
[address] [address] OPERATIVE REPORT PATIENT: ELLYN DOUGLAS : 1950 MR#: [id number] ADMIT: 06/30/2016 JOB ID: [id number] DATE OF SURGERY: 06/30/2016 ANESTHESIA: General. PREOPERATIVE DIAGNOSIS(ES): Pancreatic cancer. POSTOPERATIVE DIAGNOSIS(ES): Pancreatic cancer. OPERATIVE PROCEDURE: Insertion of left internal jugular vein Port-A-Cath using both ultrasound and fluoroscopy with interpretation for guidance. SURGEON: Brenden Minaya MD. ASSISTANTS: Kavon Morgan PA-C. COMPLICATIONS: None. ESTIMATED BLOOD LOSS: Minimal. CONDITION: Satisfactory. SPECIMEN: None. FINDINGS: Despite multiple attempts I could not find the left subclavian vein at all. I then used the ultrasound to access the left internal jugular. The wire would go into the superior vena cava but would not go down into the heart. I shot a venogram and it showed that it was open. I then placed a port with the catheter up there and also shot a venogram through the port which showed that it was open. It is unclear to me why the catheter would not go all the way down. INDICATIONS/SIGNIFICANT HISTORY: The patient is a 66-year-old woman who was recently diagnosed with pancreatic cancer after developing abdominal pain and jaundice. She is scheduled to begin chemotherapy in the near future. OPERATIVE TECHNIQUE: The patient was taken to the operating room and placed in the supine position. General anesthesia was administered and preoperative antibiotics were given. The neck and chest were prepped and draped in standard surgical fashion and a procedure pause was performed. I then attempted to access the left subclavian vein using the finder needle. Despite multiple attempts, I just could not find it. Therefore, I used ultrasound to identify the internal jugular vein. Under sonographic guidance, I accessed this and inserted a wire. Using fluoroscopy, I watched the wire course down into the superior aspect of the superior vena cava. However, the wire curved on itself and would not go down any further. Therefore, exchanged the wire out for a small catheter and shot a venogram. This showed flow down into the heart. I also used manometry to confirm that I was in the venous system. Local anesthetic was injected and I created a pocket in the left anterior chest. The Port-A-Cath was secured in place using three 2-0 Prolene sutures. The catheter was tunneled up to the wire exit point. This was then inserted into the vein using Seldinger technique. Again, the catheter would go further than the superior aspect of the superior vena cava, so I then shot a venogram through the port. Again, this showed good flow; therefore, indicating that the port should work fine. The port aspirated and flushed nicely. This was locked with heparin. The skin was closed using 3-0 Vicryl deep dermis, followed by running 4-0 Monocryl. Dermabond was applied. The entire procedure was well tolerated without complication.
[2016-07-20] MEDS ORDERED: DIPH1TAB PO (08:47)
[2016-08-17] MEDS ORDERED: LIPA1CAP3 PO (09:43)
== END 2016-06-30 23:59 | disposition home or self-care (01) ==
LOC: SAS 09:59
PROVIDERS: ATTEND General Practice
DX: C25.9 Malignant neoplasm of pancreas, unspecified (principal); C22.9 Malignant neoplasm of liver, not specified as primary or secondary; I10 Essential (primary) hypertension; E78.00 Pure hypercholesterolemia, unspecified; Z87.891 Personal history of nicotine dependence
CPT/HCPCS: 36561; 71010; 77001; C1788; C1894; J0690; J1100; J1642; J2405; J2765; J7120

== ENCOUNTER 2016-07-27 14:15 | Inpatient (IN) | payer MEDICARE ==
[~2016-07-27] VITALS: Ht 157.5 cm; Wt 57.6 kg
[~2016-07-27 14:15] MED LIST changes: -CeFAZolin Inj 2 GM in IV Premix 1 EACH IV ONE; +DIPH1TAB PO; -Lactated Ringer's 1,000 ML IV SCH
[2016-07-27 15:01] VITALS: BP 113/68; PULSE 131; RESP 18; O2SAT 97
[2016-07-27] MEDS ORDERED: Alum-Mag Hydrox-Simeth 30 mL Suspension PO PRN (15:25)
[2016-07-27] MEDS ORDERED: Polyethylene Glycol (PEG) 17 Gm Powder PO PRN (15:25)
--- NOTE | 2016-07-27 15:48 | PCM.HPMED ---
Subjective Date of Service July 27, 2016 Primary Provider: Admitting Physician: Fernando Rider MD Primary Care Physician: Barney Murry MD Attending Physician: Fernando Rider MD Chief Complaint: Intractable nausea and vomiting Allergies Coded Allergies: No Known Allergies (Unverified , 06/21/16) PMH Social History Hx Alcohol Use: Yes Alcoholic Drinks Per Day: 1 drink a night but not lately Hx Substance Use: No Smoking Status: Former Smoker Exam Vital Signs Vital Sign - Last Date Time Temp Pulse Resp B/P Pulse Ox O2 Delivery O2 Flow Rate FiO2 07/27/16 15:01 36.5 131 18 113/68 97 Room Air Assessment & Plan HPI: Patient is a 66-year-old female with a known history of pancreatic cancer. The patient was being seen at her oncologist office (Dr. Locke). Dr. Villasenor has been treating the patient's nausea and vomiting as an outpatient however the patient is having failed treatment and Dr. Villasenor feels that it would be best if the patient were to come in for inpatient treatment. Patient stated that she had this same intractable nausea and vomiting a week ago and it resolved with IV fluids but today it has returned and IV fluids, zofran and dexamethasone and sandostatin with no relief. 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 Please see HPI for pertinent positives, all other systems are negatives. Physical Exam: GEN: Patient was awake, alert, responding appropriately to questions HEENT: Pupils equal round and reactive to light, extraocular eye muscles intact , Neck soft supple, trachea midline, nomocephalic/atraumatic CV: +S1/S2, regular rate and rhythm, no murmurs auscultated Respiratory: CTAB, no wheezes, rales, rhonchi GI: +bowel sounds x4, soft, compressible, nontender to palpation EXT: no clubbing, cyanosis, edema Neuro: Cranial nerves II-XII grossly intact Psych: mood and affect were appropriate Assessment and Plan 66-year-old female with intractable nausea and vomiting secondary to pancreatic cancer and chemotherapy Intractable nausea vomiting -CT of the abdomen and pelvis results pending -Phenergan 25 mg every 4 hours when necessary -Follow up electrolytes in the morning Hypokalemia -Potassium is 3.2 -Replete with 40 of potassium IV -Continue to monitor Pancreatic cancer -Dr. Locke has been consulted and is following Hypertension -Continue home medication of hydrochlorothiazide 12.5 mg daily DVT prophylaxis: Heparin and SCDs Diet: Clear liquid Code Status:DNR/DNI Jose Luis Aguirre Disposition: Due to the nature of the patient's illness she will most likely stay greater than 2 midnights VTE Prophylaxis: Sub-Q Heparin (Unfractionated), SCDs Resuscitation Status: DNR/DNI:Do Not Resuscitate/Intubate Time spent 1 hour Ying Bell DO July 27, 2016 15:29
--- NOTE | 2016-07-27 15:49 | NUR ---
Admit Pt arrived to [facility] room 1009 at approx 1500 from Oncology. Received report from ANAN MARIE Brian. Pt arrived via w/c w/ her . Admit completed by scrap charger. IVT called to access port. A&ox3, answers questions appropriately. Pt oriented to room and call light by CUSTOMER SUCCESS SPECIALIST
[2016-07-27] MEDS ORDERED: Sodium Chloride LOK Flush 10 mL Syringe IVFLUSH PRN ×2 (16:10)
[2016-07-27] MEDS ORDERED: HepLOK Flush 100 unit/mL 5 mL Inj IVFLUSH PRN (16:10)
[2016-07-27 16:19] LABS: BASOPHILS % (AUTO) 0.2 % (0-3); EOSINOPHILS % (AUTO) 0.1 % (0-5); MONOCYTES % (AUTO) 1.5 % (4-12); Mean Corpuscular Hemoglobin 26.1 pg (27.0-35.0); Mean Corpuscular Volume 81.4 fL (81-100); NEUTROPHILS % (AUTO) 89.3 % (40-74); Platelet Count 264 bil/L (150-400)
[2016-07-27] MEDS: 0.9% Sodium Chloride 250 ML IV SCH (16:31)
[2016-07-27 16:45] LABS: Magnesium 1.8 mg/dL (1.6-2.6)
[2016-07-27] MEDS: Heparin 5,000 Unit/mL Inj SUBQ SCH (17:21)
[2016-07-27] MEDS ORDERED: Promethazine Inj 25 MG in 0.9% Sodium Chloride 50 ML IV PRN (17:45)
--- NOTE | 2016-07-27 18:23 | CCS NOTE ---
[facility] [address] [address] MEDICAL ONCOLOGY OFFICE NOTE PATIENT: ELLYN DOUGLAS : 1950 MR#: [id number] DATE: 07/27/2016 JOB ID: [id number] DATE: 07/27/2016 The patient is a 66-year-old, pleasant lady who was admitted today through the clinic for intractable nausea, vomiting. For details of history and discussion of management, please refer to today's notes from the clinic.
--- NOTE | 2016-07-27 18:55 | PCM.ADCARE ---
Advance Care Planning Note Purpose of Encounter: To discuss goals of care Parties in Attendance: The patient, her (Jose Luis Aguirre), and Dr. Bell Decisional Capacity: Good Plan: The patient understands the nature of her disease and states that she would prefer to be DNR/DNI. The patient understands that this means that she will not have any chest compressions or be intubated at this time. The patient will continue to have IV antibiotics, IV fluids and any other means in order to sustain the patient's life until her heart stops. The patient and her both understand this and are in agreement. CODE STATUS: DNR/DNI Time Spent Adv.Care Planning: Greater than 15 minutes Ying Bell DO July 27, 2016 18:55
[2016-07-27] MEDS ORDERED: DiphenOXYlate-Atropine 2.5 mg-0.025 mg Tablet PO PRN (19:00)
[2016-07-27] MEDS ORDERED: LORazepam 0.5 mg Tablet PO PRN (19:00)
[2016-07-27] MEDS ORDERED: HYDROcodone-APAP 5-325 mg Tablet PO PRN (19:20)
[2016-07-27 20:05] VITALS: BP 153/83; PULSE 69; RESP 17; O2SAT 95
[2016-07-27] MEDS: Morphine ER 15 mg (MS Contin) Tablet PO SCH (21:50)
[2016-07-27 22:05] LABS: APPEARANCE,URINE CLEAR (CLEAR,HAZY); COLOR,URINE YELLOW (YELLOW); OCCULT BLOOD,URINE NEGATIVE (NEGATIVE); PH,URINE 5.5 (5.0-8.0); UROBILINOGEN,URINE NORMAL (NORMAL)
[2016-07-28 00:15] VITALS: BP 142/75; PULSE 66; RESP 17; O2SAT 96
[2016-07-28] MEDS: Heparin 5,000 Unit/mL Inj SUBQ SCH ×3 (01:10→17:10)
[2016-07-28 06:21] VITALS: BP 133/80; PULSE 71; RESP 16; O2SAT 94
[2016-07-28] MEDS ORDERED: KCl 40 mEq/D5W 500 mL 40 MEQ in IV Premix 1 EACH IV ONE ×2 (07:30→12:00)
--- NOTE | 2016-07-28 07:44 | NUR ---
No N/V Tolerated clear liquid dinner, minimal consumption. UA sent per protocol for age. P500 bed brought in for pt due to skin breakdown. NS TKO port, not available for nurse draw. No complaints of nausea, pain manged with HS dose of schedule MS contin. Pt AOx3, uses call light appropriately. Care continues.
[2016-07-28] MEDS: Morphine ER 15 mg (MS Contin) Tablet PO SCH ×2 (07:52→20:08)
[2016-07-28] MEDS: 0.9% Sodium Chloride 250 ML IV SCH (07:59)
[2016-07-28 08:30] VITALS: PULSE 64
[2016-07-28 08:56] LABS: Mean Corpuscular Hemoglobin 25.7 pg (27.0-35.0); Mean Corpuscular Volume 81.2 fL (81-100)
--- NOTE | 2016-07-28 09:15 | DRSVH ---
PROCEDURE: CT ABDOMEN AND PELVIS WITH CONTRAST ([id number]) INDICATIONS: pancreatic cancer TECHNIQUE: After the administration of oral and intravenous contrast, 5 mm thick sections acquired from the diap hragms to the symphysis. 5 mm thick coronal and sagittal reformats were performed. For radiation do se reduction, the following was used: automated exposure control, adjustment of mA and/or kV accordi ng to patient size. COMPARISON: Outside Film, CT, CT CHEST ABD PELVIS W CON, 06/03/2016, 13:34. FINDINGS: Image quality: Excellent. ABDOMEN: Lung bases: Ill-defined by basilar groundglass densities are present. Heart size is normal. Solid organs: Liver and spleen are normal in size. Multiple hypodense hepatic lesions are present, w hich have increased in number and size compared to the prior examination. For example, within the rig ht hepatic lobe posteriorly, there is a 57 mm diameter hypodense mass, which previously measured 48 m m. Within the lateral segment left hepatic lobe anteriorly, there is a partially exophytic 15 mm diam eter mass, which previously measured 42 mm. Multifocal wedge-shaped regions of hypoperfusion within t he spleen are present, consistent with multifocal infarcts, as before. Gallbladder is within normal l imits. Biliary system is non-dilated. The pancreatic tail mass with splenic hilar extension has incr eased in size, measuring 68 mm oblique transverse by 60 mm oblique anteroposterior (previously measur ing 67 mm x 48 mm in the same planes). No right adrenal nodules. There is a 26 mm diameter low-densi ty mass at the anterior aspect of the left adrenal gland, which is not significantly changed in size. Kidneys are normal in size and enhancement, without hydronephrosis. Peritoneum and bowel: Stomach, small bowel, and colon loops are normal in caliber and wall thickness . No free fluid or air. Nodes and vessels: There is increased, 26 mm short axis portal caval adenopathy. Aorta and inferior v zoe cava are normal in caliber. The distal splenic artery is encased by the pancreatic tail mass. Miscellaneous: No ventral hernias. PELVIS: Genitourinary: Bladder wall thickness is normal. Miscellaneous: No inguinal hernias or adenopathy. Bones: There are 2 new lucent foci within the L4 vertebral body, measuring 19 mm and 14 mm. Within th e inferior L3 vertebral body, there is a new, 10 mm diameter lytic focus. There is a narrow, 13 mm di ameter lytic focus within the left posterior iliac wing. Severe left hip joint and moderate right hip joint space narrowing. No vertebral body compression fractures. IMPRESSION: 1. Increased, severe hepatic metastatic disease. 2. Increased pancreatic tail/splenic hilar mass. 3. 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 4. No change in left periadrenal metastasis. 5. New metastases to the lumbar spine and bony pelvis. Dictated by: Grant Espinal M.D. on 07/28/2016 at 9:06 Approved by: Grant Espinal M.D. on 07/28/2016 at 9:14
--- NOTE | 2016-07-28 09:58 | NUR ---
Wound Care Wound order received, patient seen at bedside. 66 yo female admitted with intractable nausea, recent diagnosis of pancreatic cancer. C/O loose stool this last week and subsequent decrease in mobility. Skin inspection reveals 2 open areas at her left and right buttock. R 2 cm L x 1.5 cm W; L 1.5 cm L x 1 cm W. These are likely due to frequent excessive moisture and stool on the skin as well as abrasion of skin with wiping and pericare. Patient is on a low airloss bed and is using shield wipes to protect her skin, discussed need for frequent repositioning, will obtain seat cushion for sitting pressure relief and comfort. Mepilex dressing applied and can be changed by nursing PRN. No wound follow up needed at this time.
--- NOTE | 2016-07-28 11:27 | NUR ---
NUTRITION ASSESSMENT: ASSESS: 66YO F with pancreatic CA, metastasis to liver, 1 dose chemo thx with subsequent n/v, c/o metallic taste and dislike of most foods. Pt unable to complete subsequent treatments and was admitted to hospital with intractable n/v. Pt with continued weight loss, spoke with pt today re high kcal/protein foods/supplements. PMHX: DIET: Clear Liquids. At home pt reports able to tolerate most liquids, recently stopped drinking Ensure 2/2 sweetness, is taking CIB with 1% milk 1x/d, ice cream/milkshakes. LABS: Glu 171,Alb 3.4,K+3.1 MEDS: Reviewed. Folfirinox,Medical Marijuana SKIN: 2 open areas on buttocks per wound RN GI: Constipation WEIGHT: 58.5kg previous wt (06/08/16) 68.0kg BMI: 23.5; 9.5kg wt loss x 2mos,14%=Severe weight loss EST.NEEDS: CANCER (25-30kcal/kg UBW;1.0-1.5g/pro/kg) Kcal: 9775-3595 Pro: 70-100g NUTRITION DIAGNOSIS: (1) Inadequate oral intake related to decreased appetite as evidenced by severe weight loss of 14% x 2 mos, reported poor appetite---PERSISTS. INTERVENTION: (1) Spoke with pt at length re maximizing caloric intake. Recommended switching to whole milk, using dry milk powder with milkshakes and mashed potatoes/soups. Encouraged trying Ensure with whole milk to cut sweetness. (2) Reviewed supplement options while on clear liquid diet. Will add Ensure clear + gatorade to meal trays. MONITOR/EVALUATE: Monitor diet advancement, GI status (pt concern re h/o constipation), labs, treatment tolerance. F/U per high risk protocol.
--- NOTE | 2016-07-28 12:00 | DRSVH ---
PROCEDURE: X-RAY CHEST ONE VIEW ([id number]) INDICATIONS: Catheter tip placement TECHNIQUE: One view of the chest was acquired. COMPARISON: Outside Film, CR, XR CHEST 2VW, 06/03/2016, 9:39. [facility], CR, CHEST 1 VIEW, 03/28, 14:37. [facility], CR, XR CHEST 2VW, 06/14/2016, 10:09. FINDINGS: Surgical changes and devices: Left IJ chest port present tip projected over the mid superior vena cav a. Lungs and pleura: No pleural effusions or pneumothorax. Left basilar airspace opacity redemonstrate d. Mediastinum: Mediastinal contours appear normal. Heart size is normal. Bones and chest wall: No suspicious bony lesions. Overlying soft tissues appear unremarkable. IMPRESSION: Left IJ chest port tip projecting over the mid superior vena cava. Airspace opacity again seen involving the left lung base which may be related to scarring versus atel ectasis. Correlate clinically to exclude underlying infection. Dictated by: Sloan Eddy [facility] Interpreted: Garret Barraza MD on 07/28/2016 at 11:57 Transcribed by: JUAN JOSE on 07/28/2016 at 11:59 Approved by: Garret Barraza M.D. on 07/28/2016 at 13:01
--- NOTE | 2016-07-28 12:43 | NUR ---
Social Work- Initial Assessment Data: See Initial Assessment. Pt is a 66 year old female admitted 07/27/16 for intractable nausea/vomiting per H&P. Pt's insurance is [employer]. Pt's PCP is Barney Murry MD. Pt's readmit risk score is 6, high risk. SW met with pt at bedside regarding discharge plan, SW role explained. Pt alert and oriented x3. Pt resides at home in [place] with her where she remains independent at baseline. Pt uses no DME and drives. Pt has no HH or SNF history. Pt has no LTC or VA benefits. SW confirmed pt's DPOA is on file, DPOA is Alex. Pt to discharge home with to transport via POV. No anticipated discharge needs. SW will continue to follow if discharge needs arise. Assessment: Pt who is independent at base. Plan: Pt to discharge home with to transport via POV. No anticipated discharge needs. SW will continue to follow if discharge needs arise. NANCY Koehler Addendum: 07/28/16 at 1248 by ORLANDO SÁNCHEZ SS Amended: Links added.
[2016-07-28 13:15] VITALS: BP 122/76; PULSE 61; RESP 16; O2SAT 96
--- NOTE | 2016-07-28 15:29 | PCM.PNMED ---
Subjective Date of Service July 28, 2016 Subjective Patient was seen and examined at bedside today. Patient denies any chest pain, shortness of breath. The patient states that her nausea and vomiting have improved significantly however she does state that now she is having some diarrhea. Overnight events: None Exam Vital Signs Vital Sign - Last Date Time Temp Pulse Resp B/P Pulse Ox O2 Delivery O2 Flow Rate FiO2 07/28/16 13:15 36.9 61 16 122/76 96 Room Air Intake and Output 07/27/16 07/27/16 07/28/16 Cumulative From/Thru 15:00 23:00 07:00 07/27/16 16:08 - 07/28/16 06:21 Intake Total 520 ml 600 ml 1120 ml Output Total 300 ml 300 ml Balance 520 ml 300 ml 820 ml Intake Oral 520 ml 600 ml 1120 ml Output Urine Total 300 ml 300 ml # Voids 1 1 # Bowel Movements 0 0 Exam Physical Exam: GEN: Patient was awake, alert, responding appropriately to questions HEENT: Pupils equal round and reactive to light, extraocular eye muscles intact , Neck soft supple, trachea midline, nomocephalic/atraumatic CV: +S1/S2, regular rate and rhythm, no murmurs auscultated Respiratory: CTAB, no wheezes, rales, rhonchi GI: +bowel sounds x4, soft, compressible, nontender to palpation EXT: no clubbing, cyanosis, edema Neuro: Cranial nerves II-XII grossly intact Psych: mood and affect were appropriate IVs and Medications Medications Reviewed: Medications were reviewed in detail Lab and Diagnostics Result Diagram: 07/28/16 0852 07/28/16 0852 X-Rays, CTs and MRIs CT of the abdomen and pelvis 07/27/16: IMPRESSION: 1. Increased, severe hepatic metastatic disease. 2. Increased pancreatic tail/splenic hilar mass. 3. No change in multifocal splenic infarcts, consistent with sequelae of distal splenic artery encasement. 4. No change in left periadrenal metastasis. 5. New metastases to the lumbar spine and bony pelvis. Dictated by: Grant Espinal M.D. on 07/28/2016 at 9:06 Approved by: Grant Espinal M.D. on 07/28/2016 at 9:14 Assessment & Plan 66-year-old female with intractable nausea and vomiting secondary to pancreatic cancer and chemotherapy Intractable nausea vomiting -CT of the abdomen and pelvis showing increase in severe hepatic metastatic disease as well as increased pancreatic tail/splenic hilar mass -Continue Phenergan 25 mg every 4 hours when necessary -Follow up electrolytes in the morning -Advance diet to full liquids at dinner Hypokalemia -Potassium is 3.1 -Replete with 40meq of potassium IV x 2 doses -Continue to monitor Pancreatic cancer -Dr. Locke has been consulted and is following Hypertension -Continue home medication of hydrochlorothiazide 12.5 mg daily Anxiety -Continue 0.5 mg of Ativan when necessary Depression -Continue Zoloft 50 mg daily DVT prophylaxis: Heparin and SCDs Diet: Clear liquid Code Status:DNR/DNI Jose Luis Aguirre Disposition: Patient seems to be progressing at this time as her nausea has significantly improved. Patient is now currently on a clear liquid diet and tolerating this well we will advance her to a full liquid diet tonight and if patient tolerates this then maybe advance the patient to a soft diet at breakfast or lunch. VTE Prophylaxis: Sub-Q Heparin (Unfractionated), SCDs Resuscitation Status: DNR/DNI:Do Not Resuscitate/Intubate Ying Bell DO July 28, 2016 15:29
--- NOTE | 2016-07-28 19:33 | NUR ---
Diet Pt advanced to full liquid diet for dinner. Unable to eat much of her tray, she is unsure if it is due to flavor or to advancing, but experiences mild nausea. Encouraged to just take small bites and not to over do it at this time Bed down and locked, call light w/in reach
[2016-07-28 20:00] VITALS: BP 137/77; PULSE 64; RESP 16; O2SAT 97
[2016-07-28] MEDS: Ondansetron 2 mg/mL 2 mL Inj IVPUSH PRN (20:08)
[2016-07-28 21:15] VITALS: PULSE 65
[2016-07-29] VITALS (7 sets, daily range): BP systolic 117–134; BP diastolic 75–81; PULSE 66–74; RESP 14–18; O2SAT 95–97
[2016-07-29] MEDS: Heparin 5,000 Unit/mL Inj SUBQ SCH ×3 (00:53→18:49)
--- NOTE | 2016-07-29 01:40 | NUR ---
Shift Note Pt. c/o of nausea, administered prn zofran with a state of relief, pt. reports of semi formed stool this shift, full liquid diet tolerating well, pt. uses call light for assistance, call light in reach, hourly rounds, all needs attended, continue with current plan of care.
[2016-07-29 05:20] LABS: Mean Corpuscular Hemoglobin 25.2 pg (27.0-35.0)
[2016-07-29] MEDS ORDERED: KCl 40 mEq/D5W 500 mL 40 MEQ in IV Premix 1 EACH IV ONE (06:05)
[2016-07-29] MEDS ORDERED: Calcium GLUCO 10% (Gm) Inj 2 GM in 0.9% Sodium Chloride 100 ML IV ONE (06:05)
[2016-07-29 07:50] LABS: BASOPHILS % (AUTO) 0.3 % (0-3); EOSINOPHILS % (AUTO) 16.1 % (0-5); MONOCYTES % (AUTO) 11.6 % (4-12); NEUTROPHILS % (AUTO) 52.7 % (40-74)
[2016-07-29] MEDS: Morphine ER 15 mg (MS Contin) Tablet PO SCH ×2 (08:14→23:18)
[2016-07-29] MEDS: Ondansetron 2 mg/mL 2 mL Inj IVPUSH PRN ×2 (08:24→14:43)
[2016-07-29] MEDS: 0.9% Sodium Chloride 250 ML IV SCH (08:24)
[2016-07-29 11:15] LABS: Mean Corpuscular Hemoglobin 25.8 pg (27.0-35.0); Mean Corpuscular Volume 81.2 fL (81-100)
--- NOTE | 2016-07-29 14:35 | NUR ---
Telemetry / V-tach Received call from tritrue at 1428 and he reported that pt just had 13 beats of V-tach. Checked on pt and she was asymptomatic except for feeling slightly warm with slight perspiration. Checked VS: BP 124/75, HR 69, RR 14, Oxygen saturation at 97% on RA, Temp 36.8. Hospitalist notified. Care continues.
--- NOTE | 2016-07-29 14:40 | PCM.PNMED ---
Subjective Date of Service July 29, 2016 Subjective still feeling nausous. tried to have some breakfast but only able to tolerate small amount of liquid. antiemtics helping. denies: headache, lightheadedness, chest pain, worsening shortness of breath, cough, abdominal pain, dysuria, sweats, chills, shakes Exam Vital Signs Vital Sign - Last Date Time Temp Pulse Resp B/P Pulse Ox O2 Delivery O2 Flow Rate FiO2 07/29/16 14:34 36.8 69 14 124/75 97 Room Air Intake and Output 07/28/16 07/28/16 07/29/16 Cumulative From/Thru 15:00 23:00 07:00 07/27/16 16:08 - 07/29/16 06:07 Intake Total 1657 ml 1013 ml 3790 ml Output Total 302 ml 350 ml 952 ml Balance 1355 ml 663 ml 2838 ml Intake Oral 500 ml 800 ml 2420 ml IV Total 1157 ml 213 ml 1370 ml Output Urine Total 300 ml 350 ml 950 ml Urine/Stool Mix 2 ml 2 ml # Voids 1 # Bowel Movements 0 0 IVs and Medications Medications Reviewed: Medications were reviewed in detail Lab and Diagnostics Result Diagram: 07/29/16 1058 07/29/16 1058 X-Rays, CTs and MRIs CT of the abdomen and pelvis 07/27/16: IMPRESSION: 1. Increased, severe hepatic metastatic disease. 2. Increased pancreatic tail/splenic hilar mass. 3. No change in multifocal splenic infarcts, consistent with sequelae of distal splenic artery encasement. 4. No change in left periadrenal metastasis. 5. New metastases to the lumbar spine and bony pelvis. Dictated by: Grant Espinal M.D. on 07/28/2016 at 9:06 Approved by: Grant Espinal M.D. on 07/28/2016 at 9:14 Assessment & Plan 66-year-old female with intractable nausea and vomiting secondary to pancreatic cancer and chemotherapy Intractable nausea vomiting -CT of the abdomen and pelvis showing increase in severe hepatic metastatic disease as well as increased pancreatic tail/splenic hilar mass -cont antiemetics as needed. try to advance diet as tolerated Hypokalemia -Continue to monitor Pancreatic cancer -Dr. Locke has been consulted and is following. I will touch base with him today to discuss plan of care from oncology standpoint. Hypertension -Continue home medication of hydrochlorothiazide 12.5 mg daily Anxiety -Continue 0.5 mg of Ativan when necessary Depression -Continue Zoloft 50 mg daily DVT prophylaxis: Heparin and SCDs Diet: Clear liquid Code Status:DNR/DNI Jose Luis Aguirre Disposition: pending oncology plan, advancing diet. VTE Prophylaxis: Sub-Q Heparin (Unfractionated), SCDs Resuscitation Status: DNR/DNI:Do Not Resuscitate/Intubate Gabriel Avina MD July 29, 2016 14:40
[2016-07-29] MEDS: ProchlorPERazine 5 mg/mL 2 mL Inj IVPUSH SCH ×2 (16:05→23:18)
--- NOTE | 2016-07-29 16:26 | PCM.CHPMED ---
Subjective Date of Service: July 29, 2016 Primary Physician: Admitting Physician: Fernando Rider MD Primary Care Physician: Barney Murry MD Attending Physician: Fernando Rider MD Chief Complaint: Chief Complaint: Nausea/vomiting History of Present Illness: 66-year-old female with a known history of pancreatic cancer undergoing current chemotherapy with Dr. Sloan Martinez, her oncologist who developed severe nausea and vomiting on week 4 of her current chemotherapy regimen with Fulfirinox. Attempts were made to treat the patient as outpatient with Compazine and Zofran the patient failed these medications. 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 Patient underwent induction 5-FU, irinotecan, and oxaliplatin on July 06. Due to patient's symptoms the Fulfirinox was held and the patient was hydrated. Juan Antonio had been consulted with referral of Dr. Clark at last clinic visit. Patient was sent to the hospital from oncology office on July 27 with anticipated treatment and discharge back to the outpatient with resuming chemotherapy on July. GI was asked to consult on this patient due to uncontrolled and ongoing nausea and vomiting with anorexia. Patient has attempted to eat Jell-O this slow process. Today the patient has a very very mild leukocytosis and hemoglobin of 10, and platelets are 295. Labs for this morning looks appropriate with a creatinine of 0.49. Last LFTs were on July 28 are much appropriate except for a alkaline phosphatase of 178 which is decreasing from 207. Report from CT identified new bony metastases. Review of systems includes nausea and vomiting without headache, chest pain, shortness of breath, abdominal pain, chills, fever Review of Systems: See history of present illness PMH Past Medical History Metastatic Pancreatic cancer poorly differentiated neuroendocrine histology HTN Depression Anxiety Hx Any Other Health Problems?: YesHx Diabetes: No Surgical History R partial knee replacement 2 years ago Tonselectomy Home Medications Lomotil 1 tab by mouth 4 times a day Hydrochlorothiazide 12.5 mg daily Percocet 1-2 tabs by mouth 4 times a day Lorazepam 0.5 mg when necessary daily at bedtime Zofran 8 mg by mouth 3 times a day when necessary Compazine 10 mg by mouth every 4 when necessary Zoloft 50 mg daily Allergies: Coded Allergies: No Known Allergies (Unverified , 06/21/16) Family History Family History Father 90 and brother 64 prostate cancer still living Mother 78 parkinsons Social History Hx Alcohol Use: YesAlcoholic Drinks Per Day: 1 drink a night but not lately Hx Substance Use: No Smoking Status: Former Smoker Living Arrangement: with Family Exam Vital Signs Vital Sign - Last Date Time Temp Pulse Resp B/P Pulse Ox O2 Delivery O2 Flow Rate FiO2 07/29/16 14:34 36.8 69 14 124/75 97 Room Air Intake and Output 07/28/16 07/28/16 07/29/16 Cumulative From/Thru 15:00 23:00 07:00 07/27/16 16:08 - 07/29/16 06:07 Intake Total 1657 ml 1013 ml 3790 ml Output Total 302 ml 350 ml 952 ml Balance 1355 ml 663 ml 2838 ml Intake Oral 500 ml 800 ml 2420 ml IV Total 1157 ml 213 ml 1370 ml Output Urine Total 300 ml 350 ml 950 ml Urine/Stool Mix 2 ml 2 ml # Voids 1 # Bowel Movements 0 0 Additional Information: General: Patient awake alert in no acute distress HEENT: Membranes are moist, no lymphadenopathy Cardio: Regular rate and rhythm Respiratory: CTA bilaterally no wheezes Abdomen: Moderate abdominal tenderness on palpation in the epigastrium Extremities: Mild edema Neuro: Sensation intact Psych: Appropriate Mood and affect Lab and Diagnostics Result Diagram: 07/29/16 1058 07/29/16 1058 X-Rays, CTs and MRIs CT abdomen IMPRESSION: 1. Increased, severe hepatic metastatic disease. 2. Increased pancreatic tail/splenic hilar mass. 3. No change in multifocal splenic infarcts, consistent with sequelae of distal splenic artery encasement. 4. No change in left periadrenal metastasis. 5. New metastases to the lumbar spine and bony pelvis. Dictated by: Grant Espinal M.D. on 07/28/2016 at 9:06 Assessment & Plan Assessment Problem list: Metastatic pancreatic cancer with local invasion, hepatic and bony metastases Intractable nausea and vomiting Assessment/Plan: 66-year-old female with ongoing pancreatic cancer stage IV with intractable nausea and vomiting 3-4 weeks after starting chemotherapy with Fulfirinox. GI was consulted for upper endoscopy to evaluate esophageal, gastric, duodenal explanations for ongoing intractable nausea and vomiting. Discussion with hematology and they do not feel that this is due to the chemotherapy. Plans for EGD were made for this afternoon it was discovered that the patient had a milkshake at noon, and had Jell-O 30 minutes before interview. This will have to be deferred at least until tomorrow but likely until Monday. In the meantime we recommend patient be put on Protonix 40 mg IV twice a day, oral Carafate, have a HIDA scan today, and an upper small bowel follow-through. These findings were discussed with the hospitalist. Thank you for allowing us participate in the care of his patient. I have seen and examined the patient with the resident and agree with above. Problems: VTE Prophylaxis: Sub-Q Heparin (Unfractionated), SCDs Resuscitation Status: DNR/DNI:Do Not Resuscitate/Intubate Victor Hugo Raymond DO July 29, 2016 16:26 King Cordova MD July 31, 2016 14:35
[2016-07-29] MEDS: Sucralfate 1,000 mg Tablet PO SCH (18:45)
[2016-07-29] MEDS: Pantoprazole 4 mg/mL 10 mL Inj IVPUSH SCH (18:46)
--- NOTE | 2016-07-29 19:10 | CCS NOTE ---
[facility] [address] [address] MEDICAL ONCOLOGY OFFICE NOTE PATIENT: ELLYN DOUGLAS : 1950 MR#: [id number] DATE: 07/27/2016 JOB ID: [id number] DATE: 07/29/2016 SUBJECTIVE: Patient was admitted from our clinic for intractable nausea, vomiting of not exactly clear etiology on Monday, July 27. Again, the nausea and vomiting is not related to chemotherapy since he has not received any treatment lately, and the last and only cycle of treatment was given three weeks ago with one cycle of FOLFIRINOX after which she felt better and then had repeat onset of nausea and vomiting at the time when she was due to start the second cycle of chemotherapy which we could not administer. I have reviewed her CT scan of the abdomen and pelvis with contrast that was done in the beginning of July 27. I have personally reviewed the CT scan with Dr. Espinal of Radiology and compared it to the CT scan that was done in [place] on June 03. There is clear evidence of disease progression both in the multiple liver metastases as well as in the pancreatic tail mass that is invading the splenic hilum and inferior aspect of the stomach. However, it is not clear to what degree this progression has occurred already in the four weeks between the June 03 scan that we are comparing it to and the time when she came back and we started chemotherapy four weeks after that scan. She has been at home on Compazine and Zofran, but this was not able to control the nausea issue. She is getting IV Zofran here in the hospital and p.r.n. Compazine with intermittent improvement but still after she ate today, had an episode of nausea. The diarrhea has stabilized; has had only one episode of loose bowel movement today with one injection of octreotide on Monday in the clinic at 100 mcg. OBJECTIVE: On exam, her vitals are stable. Abdomen is soft. No peripheral edema. LAB STUDIES: Are reviewed. There was a significant drop of electrolytes and hemoglobin which might have been a lab error since the repeat test were better. 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 She is admitted with intractable nausea, vomiting, which I think is likely due to the effect of the distal pancreatic mass on the stomach and the splenic hilum versus paraneoplastic. The CT scan that was performed on admission on July 27 was reviewed by me with Dr. Espinal and this clearly shows disease progression but I feel that the majority of that progression has occurred in the four weeks between the comparison CT of June 03 and the time chemotherapy was started in mid June. She has had only one cycle of chemotherapy three weeks ago. I have spoken with the patient and as well as Palliative Care and hospice team. At this point, I recommended Gastroenterology consultation for EGD and gastric emptying study to evaluate the relationship between the distal mass of the pancreas and the stomach. We are currently holding off on resuming chemotherapy until the etiology of this is better understood. I had already referred her to outpatient palliative care to Dr. Clark, but she was admitted and therefore I recommend that Dr. Clark be consulted on Monday. If her diarrhea deteriorates, I would recommend considering octreotide injections at 100 mcg subcu once to twice a day. In my verbal communication with , he suggested to have her on scheduled dose of Compazine 5 mg IV every 8 hours in the interim to control her nausea.
[2016-07-30] VITALS (13 sets, daily range): BP systolic 119–155; BP diastolic 69–86; PULSE 67–81; RESP 12–18; O2SAT 93–98
[2016-07-30] MEDS: Heparin 5,000 Unit/mL Inj SUBQ SCH ×3 (00:52→16:44)
[2016-07-30 06:33] LABS: BASOPHILS % (AUTO) 0.4 % (0-3); EOSINOPHILS % (AUTO) 13.1 % (0-5); MONOCYTES % (AUTO) 12.2 % (4-12); Mean Corpuscular Hemoglobin 25.9 pg (27.0-35.0); Mean Corpuscular Volume 81.6 fL (81-100); NEUTROPHILS % (AUTO) 53.3 % (40-74); Platelet Count 259 bil/L (150-400)
[2016-07-30 07:16] LABS: Magnesium 1.6 mg/dL (1.6-2.6)
[2016-07-30] MEDS: Sucralfate 1,000 mg Tablet PO SCH ×3 (07:30→18:38)
--- NOTE | 2016-07-30 07:54 | NUR ---
GI / Denies nausea overnight. Placed NPO at midnight and held all narcotics for planned Hida scan 07/30/16.
[2016-07-30] MEDS: Morphine ER 15 mg (MS Contin) Tablet PO SCH ×2 (08:30→22:02)
--- NOTE | 2016-07-30 09:39 | NUR ---
[facility] signed
[2016-07-30] MEDS: Pantoprazole 4 mg/mL 10 mL Inj IVPUSH SCH ×2 (10:29→16:42)
[2016-07-30] MEDS: ProchlorPERazine 5 mg/mL 2 mL Inj IVPUSH SCH ×2 (10:30→16:43)
--- NOTE | 2016-07-30 11:11 | NUR ---
Off floor Pt off floor to Endo at 1107, IV attached to port, report given. pt NPO all morning Addendum: 07/30/16 at 1938 by RAUL RAMIREZ RN Returned to floor at 1230, no complaints of pain or nausea this shift
[2016-07-30] MEDS ORDERED: Lactated Ringer's 1,000 ML IV ONE (11:22)
--- NOTE | 2016-07-30 11:22 | PCM.HPANE ---
Patient Data Date of Service: July 30, 2016 Surgeon Admitting Provider:Fernando Rider MD Attending Provider:Fernando Rider MD Primary Care Physician:Barney Murry MD Other Provider: Reason for Visit Intractable Nausea/Vomiting R/T,Pancreatic Cancer INTRACTABLE NAUSEA/VOMITING R/T,PANCREATIC CANCER Ht/WT & BMI Height (Feet): 5 Height (Inches): 2.00 Weight (Kilograms): 58.500 Body Mass Index 23.00 Allergies Coded Allergies: No Known Allergies (Unverified , 06/21/16) Past Anesthesia History Anesthesia History: Denies:: Anesthesia Reactions, Fam Anesthesia Reaction, Fam Malignant Hypertherm, Malignant Hyperthermia Diabetes History Hx Diabetes?: No MRSA MRSA: No Medications Blood Thinner: Lovenox Hypertension Medication: No Home Meds Incl Beta [place]: No Reported Medications Diphenoxylate/Atropine 2.5-0.025 mg (Lomotil 2.5-0.025 mg)1 Each Tablet1 Tablet PO QID PRN For Diarrhea or Loose Stool 07/20/16 Sertraline HCl (Zoloft)50 Mg [id number] Mg PO DAILY Ref 0 06/29/16 Ondansetron ODT (Zofran ODT)8 Mg Tablet8 Mg PO TID PRN For Nausea 06/29/16 Prochlorperazine Maleate (Compazine)10 Mg [id number] Mg PO Q4H PRN For Nausea 06/29/16 Morphine Sulfate ER 15 Mg [id number] Mg PO BID 06/21/16 Lorazepam 0.5 Mg Tablet0.5 Mg PO HS PRN For Insomnia 06/20/16 Hydrocodone-Acetaminophen 5-325 mg 1 Each Tablet1-2 Tablet PO QID PRN For Pain 06/08/16 Hydrochlorothiazide 25 Mg Zgwnuz01.5 Mg PO DAILY 06/08/16 Discontinued Reported Medications Lisinopril 10 Mg Tablet5 Mg PO DAILY Ref 0 06/08/16 History History of ENT Problems?: No HEENT History: Denies:: Sinus Problem Denture Type: None Teeth Condition: Broken Teeth Hx of Heart Problems?: Yes Cardiovascular History: Positive for:: Hypertension Denies:: Cardiac Surgery Chest Pain Congestive Heart Failure Edema Heart Murmur Irregular Heartbeat (admits in ST) Pacemaker Rheumatic Fever Hx of Respiratory Problem?: Yes Respiratory History: Positive for:: Pneumonia Denies:: Asthma COPD Chest Surgery Dyspnea Emphysema Hemoptysis Oxygen Administration Tuberculosis Use of C-PAP Machine Hx Neurologic Problems?: No Neurological History: Positive for:: Headaches (occasional) Denies:: Alzheimer's Disease CVA Dementia Dizziness Parkinson's Disease Seizures Hx of GI Problems?: Yes Other GI Pertinent History: Hx of Problems?: No Genitourinary History: Denies:: HX of Hemodialysis Kidney Stones Urinary Tract Infection HX of Peritoneal Dialysis: No Female Hx: Denies:: Currently Endometriosis Problems with Breasts? Skin History: Positive for:: History Skin Disorders? (dryness) Denies:: Pressure Ulcers Other Skin Pertinent History: Raw skin around vane area from diarrhea Hx Musculoskeletal Problems?: Yes Musculoskeletal History: Positive for:: Joint Replacement (partial knee replacement) Denies:: Back Injury Musculoskeletal Trauma Hx of Psycho/Social Problems?: No Psycho Social History: Positive for:: Anxiety Hx Depression Denies:: Bipolar Disorder Hx Surgeries?: Yes (partial knee replacement) Hx Any Other Health Problems?: Yes Other History: Positive for:: Cancer (pancreatic current admission problem) Hospitalization Denies:: Endocrine Disease Thyroid Disease History Blood Transfusions: Positive for:: Accept Blood Products? Denies:: Blood Transfuse Reaction Blood Transfusions Hx Diabetes: No Hx Alcohol Use: YesAlcoholic Drinks Per Day: 1 drink a night but not lately Hx Substance Use: No Smoking Status: Former Smoker Have You Smoked inLast 12 mo: Yes Stop/Bang Treated for Sleep Apnea?: No Do You Have a CPAP Machine?: No S-Snoring: Do You Snore Loudly: No T-Tired: feel tired, fatigued: Yes O-Obsered: Observed not breath: No P-Blood Pressure: treated: No B- Body Mass Index > 35 kg/m2: No A- Age over 50: Yes N- Neck Large Circumference: No G- Gender Male: No PRASAD Total Score: 2 PRASAD Risk Assessment: Low Risk, <3 Yes Risk Assessment Category Category 1A: Patient has history of documented sleep apnea, and HAS NOT received any narcotic, sedative or anesthesia administration during this stay. Category 1B: Patient has history of documented sleep apnea, and HAS received any narcotic , sedative or anesthesia administration during this stay Category 2: Patient has SUSPECTED Obstructive Sleep Apnea, and HAS received any narcotic , sedative or anesthesia administration during this stay. Category 3: Patient has SUSPECTED Obstructive Sleep Apnea and HAS NOT received narcotic, sedative or anesthesia administration during this stay. Category 4: Outpatient in Procedural Areas with known sleep apnea or who screen positive for High Risk via the STOP/BANG questionnaire. Exam Exam Vital Signs Vital Signs Date Time Temp Pulse Resp B/P Pulse Ox O2 Delivery O2 Flow Rate FiO2 07/30/16 09:08 75 07/30/16 06:24 36.5 76 17 119/69 93 Room Air 07/30/16 05:41 76 General Appearance: Alert, Oriented X3, Cooperative, No Acute Distress HEENT/AIRWAY: MP 2, Neck Movement (normal), Mouth Opening (normal) Lungs: Clear to Auscultation, Normal Air Movement Heart: Exam Unremarkable, Regular Rate/Rhythm, No Murmurs/Rubs/Gallops Meds/Labs/Diagnostics Admission Meds Current Medications Pantoprazole (Protonix Inj) 40 mg BIDAC IVPUSH Last administered on 07/30/16 10 :29; Start 07/29/16 at 16:30 Sucralfate (Carafate) 1,000 mg TIDAC PO Last administered on 07/29/16 18:45; Start 07/29/16 at 17:00 Prochlorperazine (Compazine Inj) 5 mg Q8H IVPUSH Last administered on 07/30/16 10:30; Start 07/29/16 at 16:05 Labs Test 07/27/16 21:38 07/28/16 08:52 07/29/16 10:58 07/30/16 06:15 Urine Color Yellow (YELLOW) Urine Appearance Clear (CLEAR,HAZY) Urine pH 5.5 (5.0-8.0) Urine Specific [place] 1.010 (1.003-1.035) Urine Protein Negativemg/dL (NEG,TRACE) Urine Glucose (UA) Negativemg/dL (NEGATIVE) Urine Ketones Negativemg/dL (NEGATIVE) Urine Occult Blood Negative (NEGATIVE) Urine Nitrite Negative (NEGATIVE) Urine Bilirubin Negative (NEGATIVE) Urine Urobilinogen Normalmg/dL (NORMAL) Urine Leukocyte Esterase Negative (NEGATIVE) Urine RBC 0-2/hpf (0-2) Urine WBC 0-5/hpf (0-5) Urine Epithelial Cells Few/hpf (NONE-MOD) Urine Crystals None seen (NONE SEEN) Urine Bacteria None/hpf (NONE-FEW) Urine Hyaline Casts None/lpf (NONE) Urine Granular Casts None seen (NONE SEEN) Urine Waxy Casts None seen (NONE SEEN) Urine Red Blood Cell Casts None seen (NONE SEEN) Urine White Blood Cell Casts None seen (NONE SEEN) Urine Mucus None seen (None Seen) Urine Trichomonas None seen (NONE SEEN) Urine Yeast None (NONE SEEN) Urine Culture Reflexed Not indicated Total Bilirubin 0.4mg/dL (0.0-1.2) Aspartate Amino Transf (AST/SGOT) 33U/L (0-50) Alanine Aminotransferase (ALT/SGPT) 18U/L (0-32) Alkaline Phosphatase 178U/L (25-165) Total Protein 5.4g/dL (6.4-8.4) Albumin 3.4g/dL (3.4-5.0) Gamma Glutamyl Transpeptidase 115IU/L (0-60) White Blood Count 9.0th/mm3 (3.8-10.1) Red Blood Count 3.59mil/mm3 (3.90-5.20) Hemoglobin 9.3g/dL (12.0-15.6) Hematocrit 29.3% (35.0-46.0) Mean Corpuscular Volume 81.6fL (81-100) Mean Corpuscular Hemoglobin 25.9pg (27.0-35.0) Mean Corpuscular Hemoglobin Concent 31.7% (32.0-37.0) Red Cell Distribution Width 16.8% (12.3-15.4) Platelet Count 259bil/L (150-400) Neutrophils (%) (Auto) 53.3% (40-74) Lymphocytes (%) (Auto) 20.6% (14-46) Monocytes (%) (Auto) 12.2% (4-12) Eosinophils (%) (Auto) 13.1% (0-5) Basophils (%) (Auto) 0.4% (0-3) Sodium Level 140mEq/L (134-144) Potassium Level 3.9mEq/L (3.5-5.2) Chloride Level 101mEq/L (97-108) Carbon Dioxide Level 27mmol/L (18-29) Blood Urea Nitrogen 9mg/dL (8-27) Creatinine 0.48mg/dL (0.57-1.00) Estimat Glomerular Filtration Rate 185mL/min (>59) Glucose Level 98mg/dL (60-99) Calcium Level 8.8mg/dL (8.5-10.1) Magnesium Level 1.6mg/dL (1.6-2.6) Plan Impression Patient chart reviewed, patient interviewed and anesthestic plan with risks, benefits, and alternatives discussed, and informed consent obtained. NPO per Anesth. Guidelines: Yes ASA Physical Status: ASA3 Severe Disease Anesthetic Plan: MAC Bene/Risks/Altern/Consents: Yes HP Complete Prior to Induction: Yes Matteo Grant MD July 30, 2016 11:22
[2016-07-30] MEDS: Lactated Ringer's 1,000 ML IV SCH ×2 (11:25→11:40)
[2016-07-30] MEDS ORDERED: Ondansetron 2 mg/mL 2 mL Inj IVPUSH PRN (11:25)
[2016-07-30] MEDS ORDERED: Atropine 0.4 mg/mL Inj IVPUSH PRN (11:25)
[2016-07-30] MEDS ORDERED: MetoCLOpramide 5 mg/mL 2 mL Inj IVPUSH PRN (11:25)
--- NOTE | 2016-07-30 11:44 | PCM.ENDEGD ---
EGD Date of Service: July 30, 2016 Physician Fernando Rider MD Pre Procedure Diagnosis: Nausea vomiting Post Procedure Dx & Findings: Esophageal erosion possible Daylin esophagitis fundic nodule Procedure Esophagogastroduodenoscopy PROCEDURE IN DETAIL: After proper sedation, Olympus video endoscope was inserted into patient's mouth and esophagus was successfully intubated. Scope introduced esophagus. Esophagus showed normal shiny whitish mucosa consistent with squamous cell component. Z line was intact at 38 cm from the incisors. However there was a spot one millimeter erosion which appears to have clean base and friable. Biopsy obtained. More proximally in the esophagus, whitish material that washed off with pressure washed. Brushing done for daylin. Scope further advanced to the stomach. Stomach showed normal shiny mucosa with normal appearing rugae folds without any ulcer mass erosion. However in the fundus, there was a 4-5 mm reddish nodule. This was biopsied. Cardia fundus body antrum pylorus were all visualized. Retroflexion was done. Stomach was easily inflated and deflatable using air. Scope further events to the distal duodenum. Duodenum revealed normal villous structures with normal appearing folds without any mass ulcer erosion. Also during the procedure, we saw bilious material refluxing from the small bowel to the stomach. Impression Esophageal erosion Possible esophageal daylin 4-5 mm irritated nodule in the stomach Suspect bilious reflux Recommendation We will switch her from IV Protonix to by mouth. Continue Carafate 10 mL 3 times a day. However give Carafate either 90 minutes before or after taking other medications. Await biopsies No evidence of outlet obstruction. Advance diet as tolerated Presedation Assessment Risks and Benefits Informed consent was obtained from the patient after all risks and benefits including but not limited to drug reaction, infection, pain, bleeding, perforation, as well as alternatives were discussed. Patient monitoring Continuous pulse oximetry, cardiac monitoring, blood pressure monitoring, IV access, and oxygen at 2L per nasal cannula. Complications There were no periprocedural complications identified. Post Procedure Plan Post Procedure Recommendations 1. Restrict activities today. 2. Resume normal activities in the morning. 3. Resume medications. 4. GERD behavioral modification: - Avoid fatty, acidic, spicy, large meals - Do not lie down after meals - Do not eat or drink anything for at least 2 1/2 hours before going to bed at night - Discontinue tobacco and alcohol - Decrease or avoid caffeine - Avoid chocolate and mints - Decrease weight - Avoid aspirin and non steroidal anti-inflammatory agents (NSAID) such as Aleve, Advil, Mobic, Naproxen, Ibuprofen, etc 5. Add proton pump inhibitor. Take 30 minutes before 1st meal of the day. 6. Patient informed of normal post procedure side effects as bloating, drowsiness, blood streaking in the stool 7. If gastric biopsy reveal H.pylori, continue with appropriate treatment 8. If small bowel biopsy reveals celiac, continue with appropriate treatment 9. Please don't hesitate to call me with any questions King Cordova MD July 30, 2016 11:44
--- NOTE | 2016-07-30 11:44 | PCM.ANEP1 ---
Post Anesthesia Phase 1 PACU Phase 1 Assessment Date of Service: July 30, 2016 Vital Signs 140/80 80 16 100% NC Anesthetic Administered: MAC Level of Alertness: Awake, talking LAYTON's with Equal Strength: Yes Pain: No Pain Scale Score: 0 Nausea or Vomiting: No Cardiovascular Function and Hy: Yes Oxygen Delivery: Nasal Cannula Lungs: Clear to Auscultation, Normal Air Movement Complications: No Follow up Care: No Patient Instructions Provided: Yes Matteo Grant MD July 30, 2016 11:44
[2016-07-30] MEDS ORDERED: KCl 40 mEq/100 mL Premix (K 3 - 3.7 & Creat < 2) IV ONE (12:35)
--- NOTE | 2016-07-30 13:52 | PCM.PNMED ---
Subjective Date of Service July 30, 2016 Subjective feeling a little better today. going for egd. less nausous. will try to eat later today. denies: headache, lightheadedness, chest pain, worsening shortness of breath, cough, abdominal pain, dysuria, sweats, chills, shakes Exam Vital Signs Vital Sign - Last Date Time Temp Pulse Resp B/P Pulse Ox O2 Delivery O2 Flow Rate FiO2 07/30/16 12:37 36.6 67 17 131/78 95 Room Air 07/30/16 12:22 2 Intake and Output 07/29/16 07/29/16 07/30/16 Cumulative From/Thru 15:00 23:00 07:00 07/27/16 16:08 - 07/30/16 06:25 Intake Total 1450 ml 687 ml 5927 ml Output Total 800 ml 850 ml 2602 ml Balance 650 ml -163 ml 3325 ml Intake Oral 750 ml 520 ml 3690 ml IV Total 700 ml 167 ml 2237 ml Output Urine Total 800 ml 850 ml 2600 ml Urine/Stool Mix 2 ml # Voids 1 # Bowel Movements 1 0 1 Exam Physical Exam: Gen: no acute distress HEENT: moist mucus membranes Respiratory: CTAB, unlabored respirations Cardiovascular: RRR, no m/r/g Abdomen: soft, non-tender, non-distended. + bowel sounds x 4 quadrants Extr: no edema b/l lower extremities Psyc: appropriate, cooperative IVs and Medications Medications Reviewed: Medications were reviewed in detail Lab and Diagnostics Result Diagram: 07/30/16 0615 07/30/1615 X-Rays, CTs and MRIs CT of the abdomen and pelvis 07/27/16: IMPRESSION: 1. Increased, severe hepatic metastatic disease. 2. Increased pancreatic tail/splenic hilar mass. 3. No change in multifocal splenic infarcts, consistent with sequelae of distal splenic artery encasement. 4. No change in left periadrenal metastasis. 5. New metastases to the lumbar spine and bony pelvis. Dictated by: Grant Espinal M.D. on 07/28/2016 at 9:06 Approved by: Grant Espinal M.D. on 07/28/2016 at 9:14 Assessment & Plan 66-year-old female with intractable nausea and vomiting secondary to pancreatic cancer and chemotherapy Intractable nausea vomiting -CT of the abdomen and pelvis showing increase in severe hepatic metastatic disease as well as increased pancreatic tail/splenic hilar mass -cont antiemetics as needed. try to advance diet as tolerated went for egd today. may need upper gi with small bowel follow through. Hypokalemia -Continue to monitor Pancreatic cancer -Dr. Locke has been consulted and is following. Hypertension -Continue home medication of hydrochlorothiazide 12.5 mg daily Anxiety -Continue 0.5 mg of Ativan when necessary Depression -Continue Zoloft 50 mg daily dispo: pending cont clinical improvement. if tolerating diet possible to d/c with outpt follow up. if not will need to schedule upper gi with small bowel followthrough on monday. VTE Prophylaxis: Sub-Q Heparin (Unfractionated), SCDs Resuscitation Status: DNR/DNI:Do Not Resuscitate/Intubate Gabriel Avina MD July 30, 2016 13:52
--- NOTE | 2016-07-30 15:40 | NUR ---
NUTRITION FOLLOW-UP: ASSESS: 66 YO F with pancreatic CA, metastases to liver, 1 dose chemo thx with subsequent n/v, c/o metallic taste and dislike of most foods. Pt unable to complete subsequent treatments and was admitted to hospital with intractable n/v. Pt with continued weight loss, RD spoke with pt 07/28 re high kcal/protein foods/supplements. Status post EGD today; diet advanced to soft, with continued supplements. PO intake has averaged 50% full liquid trays. PMHX:Pancreatic cancer with mets, HTN, depression, anxiety. DIET: Soft, supplements. PO intake averaging 50% trays. At home pt reports able to tolerate most liquids, recently stopped drinking Ensure 2/2 sweetness, is taking CIB with 1% milk 1x/d, ice cream/milkshakes. LABS: Cr 0.48. MEDS: Reviewed. Folfirinox,Medical Marijuana SKIN: 2 open areas on buttocks per wound RN GI: BM x 1 (07/29). WEIGHT: 58.5 kg previous wt (06/08/16) 68.0kg BMI: 23.5; 9.5kg wt loss x 2mos,14%=Severe weight loss EST.NEEDS: CANCER (25-30kcal/kg UBW;1.0-1.5g/pro/kg) Kcal: 1294-3272 Pro: 70-100g NUTRITION DIAGNOSIS: (1) Inadequate oral intake related to decreased appetite as evidenced by severe weight loss of 14% x 2 mos, reported poor appetite - PERSISTS. INTERVENTION: (1) RD spoke with pt at length re maximizing caloric intake. Recommended switching to whole milk, using dry milk powder with milkshakes and mashed potatoes/soups. Encouraged trying Ensure with whole milk to cut sweetness. (2) Reviewed supplement options while on clear liquid diet. Will continue supplements to trays. MONITOR/EVALUATE: Monitor diet advancement, GI status (pt concern re h/o constipation), labs, treatment tolerance. F/U per high risk protocol.
[2016-07-30] MEDS: 0.9% Sodium Chloride 250 ML IV SCH (16:43)
[2016-07-31] MEDS: ProchlorPERazine 5 mg/mL 2 mL Inj IVPUSH SCH ×2 (00:45→09:56)
[2016-07-31] MEDS: Heparin 5,000 Unit/mL Inj SUBQ SCH ×2 (00:45→09:56)
--- NOTE | 2016-07-31 04:29 | NUR ---
activity pt has been resting comfortably this shift. she had her scheduled MS contin and says her pain is well controlled. she has been sleeping without any complaints. she has been made NPO for possible HIDA scan later this morning. care continues.
[2016-07-31 06:52] VITALS: BP 126/86; PULSE 71; RESP 18; O2SAT 96
[2016-07-31] MEDS: Pantoprazole 4 mg/mL 10 mL Inj IVPUSH SCH (09:54)
[2016-07-31] MEDS: Morphine ER 15 mg (MS Contin) Tablet PO SCH (09:55)
[2016-07-31] MEDS: Sucralfate 1,000 mg Tablet PO SCH (09:55)
--- NOTE | 2016-07-31 10:15 | PCM.PNMED ---
Subjective Date of Service July 31, 2016 Subjective Patient is doing much better today. Patient underwent EGD yesterday with small mass noted in the stomach, as well as diffuse gastritis. Appears that the Carafate and PPI helped resolve the patient's complaints. Review of systems negative Exam Vital Signs Vital Sign - Last Date Time Temp Pulse Resp B/P Pulse Ox O2 Delivery O2 Flow Rate FiO2 07/31/16 06:52 36.7 71 18 126/86 96 Room Air 07/30/16 12:22 2 Intake and Output 07/30/16 07/30/16 07/31/16 Cumulative From/Thru 15:00 23:00 07:00 07/27/16 16:08 - 07/31/16 06:52 Intake Total 150 ml 30 ml 0 ml 6107 ml Output Total 550 ml 3152 ml Balance 150 ml 30 ml -550 ml 2955 ml Intake Oral 30 ml 0 ml 3720 ml IV Total 150 ml 2387 ml Output Urine Total 550 ml 3150 ml Urine/Stool Mix 2 ml # Voids 2 2 5 # Bowel Movements 2 0 3 Exam General: Patient awake alert in no acute distress HEENT: Membranes are moist, no lymphadenopathy Cardio: Regular rate and rhythm Respiratory: CTA bilaterally no wheezes Abdomen: Nontender, nondistended, soft Extremities: Mild edema Neuro: Sensation intact Psych: Appropriate Mood and affect IVs and Medications Medications Reviewed: Medications were reviewed in detail Lab and Diagnostics Result Diagram: 07/30/16 0615 07/30/16 0615 X-Rays, CTs and MRIs CT of the abdomen and pelvis 07/27/16: IMPRESSION: 1. Increased, severe hepatic metastatic disease. 2. Increased pancreatic tail/splenic hilar mass. 3. No change in multifocal splenic infarcts, consistent with sequelae of distal splenic artery encasement. 4. No change in left periadrenal metastasis. 5. New metastases to the lumbar spine and bony pelvis. Dictated by: Grant Espinal M.D. on 07/28/2016 at 9:06 Approved by: Grant Espinal M.D. on 07/28/2016 at 9:14 Assessment & Plan 66-year-old female with metastatic pancreatic cancer of the tail with nausea and vomiting underwent EGD small nodule in the stomach. Continue carafate and protonix. Still recommend the patient have a gastric emptying study as well as a small bowel follow-through if oncology concerned about obstructive process. At this time the patient is improved and we will sign off. Today she has no nausea vomiting and tolerated food. I think protonix and carafate is doing its jop. Should there be any GI bleed or worsening of patient's symptoms free to reconsult. Thank you for allowing sweat despite the care of this patient. I have seen and examined the patient with the resident and agree with above. VTE Prophylaxis: Sub-Q Heparin (Unfractionated), SCDs Resuscitation Status: DNR/DNI:Do Not Resuscitate/Intubate Victor Hugo Raymond DO July 31, 2016 10:15 King Cordova MD July 31, 2016 14:41
--- NOTE | 2016-07-31 10:25 | PCM.DIMED ---
Discharge Instructions Date of Service July 31, 2016 Dates of Hospitalization July 27, 2016 at 14:57 Discharge Diagnosis Discharge Diagnosis intractable nausea vomiting. resolved hypokalemia resolved pancreatic cancer with metastasis to liver, spine, pelvis multifocal splenic infarcts hypertension anxiety depression Diet Other (as tolerated. supplement with boost, ensure.) Activity No restrictions Call your provider Fever or Chills, Shortness of breath, Bleeding, Chest pain, Vomitting, Excessive diarrhea, Weakness (unilateral) Patient Instructions Follow-up plan follow up with primary care phsyician within 3-5 days of discharge. follow up with oncology within 3-5 days of discharge. complete workup as an outpatient as necessary to include gastric emptying study and small bowel follow through. Gabriel Avina MD July 31, 2016 10:25
[2016-07-31] MEDS ORDERED: ZOF8 PO (10:29)
[2016-07-31] MEDS ORDERED: PANT40TA2 PO (10:29)
[2016-07-31] MEDS ORDERED: PROC-4 PO (10:29)
[2016-07-31] MEDS ORDERED: SUCR1TAB30 PO (10:29)
--- NOTE | 2016-07-31 10:35 | NUR ---
Social Work: Discharge D:See Initial Assessment. Pt is a 66 year old female admitted 07/27/16 for intractable nausea/vomiting per H&P. Pt is on day 4 of hospitalization. Pt to discharge home with no anticipated needs today. Pt to transport home with via POV. A: Pt who is independent at baseline. P: Pt to discharge home with via POV today. NANCY Antoine
--- NOTE | 2016-07-31 10:37 | PCM.DC.MED ---
Discharge Summary Date of Service July 31, 2016 Dates of Hospitalization Date of Hospital Admission July 27, 2016 at 14:57 Date of Discharge: July 31, 2016 Providers: Admitting Physician: Fernando Rider MD Primary Care Physician: Barney Murry MD Attending Physician: Fernando Rider MD Diagnosis at Time of Discharge Diagnosis at Time of Discharge intractable nausea vomiting. resolved hypokalemia resolved pancreatic cancer with metastasis hypertension anxiety depression Consultations Dr. Locke (oncology) Dr. Cordova (GI) Procedures XRay, CTs & MRIs CT of the abdomen and pelvis 07/27/16: IMPRESSION: 1. Increased, severe hepatic metastatic disease. 2. Increased pancreatic tail/splenic hilar mass. 3. No change in multifocal splenic infarcts, consistent with sequelae of distal splenic artery encasement. 4. No change in left periadrenal metastasis. 5. New metastases to the lumbar spine and bony pelvis. Dictated by: Grant Espinal M.D. on 07/28/2016 at 9:06 Approved by: Grant Espinal M.D. on 07/28/2016 at 9:14 Other Diagnostics endoscopy 07/30/2016 Dr. Cordova Impression Esophageal erosion Possible esophageal damon 4-5 mm irritated nodule in the stomach Suspect bilious reflux Recommendation We will switch her from IV Protonix to by mouth. Continue Carafate 10 mL 3 times a day. However give Carafate either 90 minutes before or after taking other medications. Await biopsies No evidence of outlet obstruction. Advance diet as tolerated Brief History 66-year-old female with a known history of pancreatic cancer undergoing current chemotherapy with Dr. Sloan Martinez, her oncologist who developed severe nausea and vomiting on week 4 of her current chemotherapy regimen with Fulfirinox. Attempts were made to treat the patient as outpatient with Compazine and Zofran the patient failed these medications. 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 Patient underwent induction 5-FU, irinotecan, and oxaliplatin on July 06. Due to patient's symptoms the Fulfirinox was held and the patient was hydrated. GI was asked to consult on this patient due to uncontrolled and ongoing nausea and vomiting with anorexia. Patient has attempted to eat Jell-O this slow process. Today the patient has a very very mild leukocytosis and hemoglobin of 10, and platelets are 295. Labs for this morning looks appropriate with a creatinine of 0.49. Last LFTs were on July 28 are much appropriate except for a alkaline phosphatase of 178 which is decreasing from 207. Report from CT identified new bony metastases. Review of systems includes nausea and vomiting without headache, chest pain, shortness of breath, abdominal pain, chills, fever improved over the course of her hospital stay. at the time of discharge able to tolerate an oral diet without nausea or vomiting. ok to go home with oral antiemetics. outpt f/u for further GI diagnotics as necessary and follow up with her oncologist for her cancer and metastasis. Hospital Course 66-year-old female with metastatic pancreatic cancer of the tail with nausea and vomiting underwent EGD diagnostic gastritis and small mass in the stomach. Still recommend the patient have a gastric emptying study as well as a small bowel follow-through, although there were no signs of outlet obstruction on EGD. At this time the patient is improved and we will sign off. Should there be any GI bleed or worsening of patient's symptoms free to reconsult. Thank you for allowing sweat despite the care of this patient. Exam Vital Signs (Last) Date Time Temp Pulse Resp B/P Pulse Ox O2 Delivery O2 Flow Rate FiO2 07/31/16 06:52 36.7 71 18 126/86 96 Room Air 07/30/16 12:22 2 Exam Physical Exam: Gen: no acute distress HEENT: moist mucus membranes Respiratory: CTAB, unlabored respirations Cardiovascular: RRR, no m/r/g Abdomen: soft, non-tender, non-distended. + bowel sounds x 4 quadrants Extr: no edema b/l lower extremities Psyc: appropriate, cooperative Test 07/27/16 21:38 07/28/16 08:52 07/29/16 10:58 07/30/16 06:15 Urine Color Yellow (YELLOW) Urine Appearance Clear (CLEAR,HAZY) Urine pH 5.5 (5.0-8.0) Urine Specific [place] 1.010 (1.003-1.035) Urine Protein Negativemg/dL (NEG,TRACE) Urine Glucose (UA) Negativemg/dL (NEGATIVE) Urine Ketones Negativemg/dL (NEGATIVE) Urine Occult Blood Negative (NEGATIVE) Urine Nitrite Negative (NEGATIVE) Urine Bilirubin Negative (NEGATIVE) Urine Urobilinogen Normalmg/dL (NORMAL) Urine Leukocyte Esterase Negative (NEGATIVE) Urine RBC 0-2/hpf (0-2) Urine WBC 0-5/hpf (0-5) Urine Epithelial Cells Few/hpf (NONE-MOD) Urine Crystals None seen (NONE SEEN) Urine Bacteria None/hpf (NONE-FEW) Urine Hyaline Casts None/lpf (NONE) Urine Granular Casts None seen (NONE SEEN) Urine Waxy Casts None seen (NONE SEEN) Urine Red Blood Cell Casts None seen (NONE SEEN) Urine White Blood Cell Casts None seen (NONE SEEN) Urine Mucus None seen (None Seen) Urine Trichomonas None seen (NONE SEEN) Urine Yeast None (NONE SEEN) Urine Culture Reflexed Not indicated Total Bilirubin 0.4mg/dL (0.0-1.2) Aspartate Amino Transf (AST/SGOT) 33U/L (0-50) Alanine Aminotransferase (ALT/SGPT) 18U/L (0-32) Alkaline Phosphatase 178U/L (25-165) Total Protein 5.4g/dL (6.4-8.4) Albumin 3.4g/dL (3.4-5.0) Gamma Glutamyl Transpeptidase 115IU/L (0-60) White Blood Count 9.0th/mm3 (3.8-10.1) Red Blood Count 3.59mil/mm3 (3.90-5.20) Hemoglobin 9.3g/dL (12.0-15.6) Hematocrit 29.3% (35.0-46.0) Mean Corpuscular Volume 81.6fL (81-100) Mean Corpuscular Hemoglobin 25.9pg (27.0-35.0) Mean Corpuscular Hemoglobin Concent 31.7% (32.0-37.0) Red Cell Distribution Width 16.8% (12.3-15.4) Platelet Count 259bil/L (150-400) Neutrophils (%) (Auto) 53.3% (40-74) Lymphocytes (%) (Auto) 20.6% (14-46) Monocytes (%) (Auto) 12.2% (4-12) Eosinophils (%) (Auto) 13.1% (0-5) Basophils (%) (Auto) 0.4% (0-3) Sodium Level 140mEq/L (134-144) Potassium Level 3.9mEq/L (3.5-5.2) Chloride Level 101mEq/L (97-108) Carbon Dioxide Level 27mmol/L (18-29) Blood Urea Nitrogen 9mg/dL (8-27) Creatinine 0.48mg/dL (0.57-1.00) Estimat Glomerular Filtration Rate 185mL/min (>59) Glucose Level 98mg/dL (60-99) Calcium Level 8.8mg/dL (8.5-10.1) Magnesium Level 1.6mg/dL (1.6-2.6) Discharge Medications Discharge Medications Hydrochlorothiazide (Hydrochlorothiazide) 25 Mg Tablet 12.5 MG PO DAILY ( Reported) Morphine Sulfate ER (Morphine Sulfate ER) 15 Mg Tablet 30 MG PO BID (Reported) Pantoprazole DR (Protonix) 40 Mg Tablet 40 MG PO BID Prescribed by: Natty EWING Sertraline HCl (Zoloft) 50 Mg Tablet 50 MG PO DAILY (Reported) Sucralfate (Carafate) 1 Gm Tablet 1,000 MG PO TIDAC Prescribed by: Natty EWING As needed Diphenoxylate/Atropine 2.5-0.025 mg (Lomotil 2.5-0.025 mg) 1 Each Tablet 1 TABLET PO QID PRN PRN For Diarrhea or Loose Stool (Reported) Hydrocodone-Acetaminophen 5-325 mg (Hydrocodone-Acetaminophen 5-325 mg) 1 Each Tablet 1-2 TABLET PO QID PRN PRN For Pain (Reported) Lorazepam (Lorazepam) 0.5 Mg Tablet 0.5 MG PO HS PRN PRN For Insomnia (Reported ) Ondansetron (Zofran) 8 Mg Tablet 8 MG PO Q6H PRN PRN For Nausea Prescribed by: Natty EWING Prochlorperazine Maleate (Compazine) 10 Mg Tablet 10 MG PO Q6H PRN PRN For Nausea Prescribed by: Natty EWING Followup Plan Follow-up plan follow up with primary care phsyician within 3-5 days of discharge. follow up with oncology within 3-5 days of discharge. complete workup as an outpatient as necessary to include gastric emptying study and small bowel follow through. Discharge Diet: Other (as tolerated. supplement with boost, ensure.) Discharge Activity: No restrictions Time spent >35min Gabriel Avina MD July 31, 2016 10:36
--- NOTE | 2016-07-31 12:58 | NUR ---
DISCHARGE Reviewed patient discharge instructions with patient and spouse at bedside. Encouraged gradual upgrade in food, as she can tolerate and to supplement with ensure like beverages for extra calories. Patient verbalized understanding. Denied any nausea/vomiting this am. Went over new Rx meds and hard copy of scripts given to patient. Understands to call and make follow up appointments with Dr. Matamoros and PCP within the week. Gave patient extra mepliex dressings and barrier ointment cream to put on open areas on bilateral buttocks. Patient left with all personal belongings. Stood and transferred into wheelchair and was taken outside to personal vehicle.
[2016-08-17] MEDS ORDERED: LIPA1CAP3 PO (09:43)
== END 2016-07-31 12:00 | disposition home or self-care (01) | DRG 392 ==
LOC: OSC 14:57 → SOU 07-28 14:15 → OSC 07-28 14:17
PROVIDERS: ADMIT Internal Medicine Hematology & Oncology; ATTEND Neuromusculoskeletal Medicine & OMM
PROC: 0DB68ZX Excision of Stomach, Via Natural or Artificial Opening Endoscopic, Diagnostic (ICD-10-PCS; 2016-07-30)
PROC: 0DB38ZX Excision of Lower Esophagus, Via Natural or Artificial Opening Endoscopic, Diagnostic (ICD-10-PCS; principal; 2016-07-30 08:00)
DX: R11.2 Nausea with vomiting, unspecified (principal); C25.2 Malignant neoplasm of tail of pancreas; C7A.1 Malignant poorly differentiated neuroendocrine tumors; C78.7 Secondary malignant neoplasm of liver and intrahepatic bile duct; C79.51 Secondary malignant neoplasm of bone; K22.10 Ulcer of esophagus without bleeding; T45.1X5A Adverse effect of antineoplastic and immunosuppressive drugs, initial encounter; R63.0 Anorexia; K21.9 Gastro-esophageal reflux disease without esophagitis; E87.6 Hypokalemia; F41.9 Anxiety disorder, unspecified; F32.9 Major depressive disorder, single episode, unspecified; Z66 Do not resuscitate; I10 Essential (primary) hypertension; Z68.23 Body mass index [BMI] 23.0-23.9, adult

== ENCOUNTER 2016-08-28 12:51 | Inpatient (IN) | payer MEDICARE ==
[~2016-08-28] VITALS: Ht 157.5 cm; Wt 54.7 kg
[~2016-08-28 12:51] MED LIST changes: +LIPA1CAP3 PO; -LISI10TA PO; -ONDA8TAB7 PO; +PANT40TA2 PO; +SUCR1TAB30 PO; +ZOF8 PO
[2016-08-28 13:08] VITALS: BP 113/72; PULSE 90; RESP 20; O2SAT 94
[2016-08-28 13:10] VITALS: BP 113/67; PULSE 72; RESP 20; O2SAT 98
--- NOTE | 2016-08-28 13:24 | ED.REPORT ---
HPI-General Illness Date of Service Aug 28, 2016 ED Provider: Sera Win MD Pt is a 66 year old female with high grade pancreatic cancer, and a history of HTN, who presents to the ED via EMS complaining of RLQ abdominal pain. Pt c/o dehydration, weakness, diarrhea, and vomiting. Yesterday, she was sleeping in bed all day, and and she was not easily aroused this morning, which prompted him to call EMS. Per , she hasn't been able to eat in "a long time," but she was able to drink fluids yesterday. She denies SOB, cough, fever, or any other symptoms. She received a 3rd cycle of FOLFIRINOX on 08/17/16, and has local metastasis of the pancreatic cancer into her stomach. She gets Nubain injections, and has been on octreotide. She gets her regular IV cancer treatments through the cancer clinic. Per , 1 week ago, she went to the cancer care center a few times after chemotherapy for potassium and fluid. The 4th round of Chemo is scheduled for 08/31/16, after which they are going to scan her to monitor the status of her cancer. She was originally diagnosed in Apr 2016. For pain control she is taking extended-release morphine (15mg), but she missed her usual 09:00 dosage. The EMS provided her 10mg of morphine. Nursing Notes Stated Complaint: DEHYDRATION/WEAKNESS Chief Complaint: Female Abdominal Pain Nursing Notes Reviewed: Yes Allergies: Coded Allergies: No Known Allergies (Unverified , 08/28/16) Scheduled Lipase/Protease/Amylase (Creon DR) 12,000 Unit Capsule 1 CAPSULE PO 15-30min before meal Morphine Sulfate ER (Morphine Sulfate ER) 15 Mg Tablet 30 MG PO BID Pantoprazole DR (Protonix) 40 Mg Tablet 40 MG PO BID Sertraline HCl (Zoloft) 50 Mg Tablet 50 MG PO DAILY Sucralfate (Carafate) 1 Gm Tablet 1,000 MG PO TIDAC Scheduled PRN Diphenoxylate/Atropine 2.5-0.025 mg (Lomotil 2.5-0.025 mg) 1 Each Tablet 1 TABLET PO QID PRN PRN For Diarrhea or Loose Stool Hydrocodone-Acetaminophen 5-325 mg (Hydrocodone-Acetaminophen 5-325 mg) 1 Each Tablet 1-2 TABLET PO DAILY PRN PRN For Pain Lorazepam (Lorazepam) 0.5 Mg Tablet 0.5 MG PO HS PRN PRN For Insomnia Ondansetron (Zofran) 8 Mg Tablet 8 MG PO Q6H PRN PRN For Nausea Prochlorperazine Maleate (Compazine) 10 Mg Tablet 10 MG PO Q6H PRN PRN For Nausea General Time Seen by MD: 12:58 Chief Complaint Abdominal pain Hx Obtained From: Patient, Spouse, EMS Arrived By: Ambulance Sudden in Onset?: No Onset Occurred: Yesterday Symptom Duration: Since onset Recent Healthcare: Recent doctor visit, Recent hospitalization Similar Sx Previous: Yes Past Medical History Past Medical History Notes: Oncology: Dr. Locke DO NOT RESUSCITATE Past Medical History High grade pancreatic cancer (Local metastasis into stomach) Reports: Hypertension, Denies: Diabetes mellitus Past Surgical History Partial knee replacement Smoking History Former Smoker Social History Alcohol Use: 1-3 per day Drug Use: Denies drug use Other Social History: Good social support, Ambulatory Status Independent Review of Systems Difficult to obtain ROS due to pt's condition Full Review of Systems Constitutional: Reports: Weakness - generalized, Denies: Fever Respiratory: Denies: Non-productive cough, Shortness of breath GI: Reports: Abdominal pain, Diarrhea, Vomiting Complete sys rev & neg: except as marked. Physical Exam Vital Signs Vital Signs Date Time Temp Pulse Resp B/P Pulse Ox O2 Delivery O2 Flow Rate FiO2 08/28/16 13:08 36.6 90 20 113/72 94 Room Air Initial VS: Reviewed, Vital signs normal Head / Eyes: Atraumatic, Normocephalic Neck: Supple, Full range of motion Extremities: Vascular intact, Neuro intact General/Constitutional: Cooperative, Not toxic appearing Alertness: Positive: Confused (Moderately) Distress / Hydration: Positive: Dehydration severe Appearance / Presentation: Positive: Cachectic Respiratory / Chest: Breath sounds NL, Breath sounds = bilat, No respiratory distress Port present Cardiovascular: Peripheral circulation NL Abdomen: Atraumatic, Soft Tenderness/Guarding/Rebound: Positive: Tender RUQ... (Moderate), Tender epigastric Abdomen is scaphoid. Lower Extremity / Pelvis / MS: Neurologic intact, Vascular intact, No edema Skin: Atraumatic, Warm, Dry, Intact Mildly jaundiced Interpretation & Diagnostics Lab Results Interpretation Result Diagram: 08/28/16 1324 08/28/16 1324 Test 08/28/16 13:24 White Blood Count 6.4th/mm3 (3.8-10.1) Red Blood Count 4.12mil/mm3 (3.90-5.20) Hemoglobin 10.8g/dL (12.0-15.6) Hematocrit 34.0% (35.0-46.0) Mean Corpuscular Volume 82.5fL (81-100) Mean Corpuscular Hemoglobin 26.2pg (27.0-35.0) Mean Corpuscular Hemoglobin Concent 31.8% (32.0-37.0) Red Cell Distribution Width 20.3% (12.3-15.4) Platelet Count 318bil/L (150-400) Neutrophils (%) (Auto) 45.7% (40-74) Lymphocytes (%) (Auto) 26.7% (14-46) Monocytes (%) (Auto) 24.5% (4-12) Eosinophils (%) (Auto) 1.7% (0-5) Basophils (%) (Auto) 0.5% (0-3) Hold Purple Top Tube Received (Received) Hold Blue Top Tube Received (Received) Sodium Level 141mEq/L (134-144) Potassium Level 3.3mEq/L (3.5-5.2) Chloride Level 93mEq/L (97-108) Carbon Dioxide Level 28mmol/L (18-29) Blood Urea Nitrogen 23mg/dL (8-27) Creatinine 1.48mg/dL (0.57-1.00) Estimat Glomerular Filtration Rate 51mL/min (>59) Glucose Level 112mg/dL (60-99) Calcium Level 10.0mg/dL (8.5-10.1) Magnesium Level 1.9mg/dL (1.6-2.6) Total Bilirubin 0.5mg/dL (0.0-1.2) Aspartate Amino Transf (AST/SGOT) 35U/L (0-50) Alanine Aminotransferase (ALT/SGPT) 17U/L (0-32) Alkaline Phosphatase 261U/L (25-165) Total Protein 7.2g/dL (6.4-8.4) Albumin 3.8g/dL (3.4-5.0) Lipase 82U/L (13-60) Hold [place] Top Tube Received (Received) Re-Eval/Medical Decision Med Decision/Clinical Course 66-year-old with newly diagnosed widely metastatic pancreatic cancer with intractable pain vomiting and diarrhea. Has been able to eat or drink over the last few days significantly dehydrated with creatinine increasing. Will be admitted for pain and nausea control and hydration. Discussion with patient and her today about goals of care. They are beginning to understand that comfort and focusing on quality is probably going to be the more appropriate for them over the next days to weeks. We will certainly benefit from hospice/palliative care consult. Source of Hx: Old records, EMS Time of Eval: 14:05 Re-Evaluation/Progress Note: Pt rechecked. Informed pt of plan for admission. Pt understands and agrees with plan for admission. All questions addressed. Consultation : Referral / Consult Name: Wong Rodriguez DO Consulted With: Hospitalist Call Returned at: 14:38 Casino Cashier: Will see patient, Agrees with eval, Agrees with plan, Accepts admit Note: Consulted with Dr. Rodriguez. Discussed pt's case. Accepts admit. Counseled Regarding: Diagnosis, Lab results, Need for admission Discharge & Departure Primary Impression: Renal failure Additional Impressions: Primary pancreatic cancer with metastasis to other site Dehydration Disposition: ADMITTED TO HOSPITAL Discharge Condition All VS Reviewed: Yes Condition: Stable Referrals: Barney Murry MD (PCP) Samantha Attestation Portions of this note were transcribed by Cece Dove and Esme Kirkpatrick. I, Dr. Win personally performed the history, physical exam and medical decision-making; I reviewed and confirmed the accuracy of the information in the transcribed note. Signed by: Cece Dove and Samantha Molina, 08/28/16 and 14:50. copies to: Barney Murry MD, Shawna L MD Aug 28, 2016 13:24 Esme Amaya Aug 28, 2016 13:30 CECE DOVE Aug 28, 2016 13:47
[2016-08-28] MEDS ORDERED: HYDROmorphone 1 mg/mL Inj IVPUSH PRN (13:25)
[2016-08-28] MEDS ORDERED: HYDROmorphone 1 mg/mL Inj IVPUSH ONE (13:25)
[2016-08-28] MEDS ORDERED: Pantoprazole 4 mg/mL 10 mL Inj IVPUSH ONE (13:25)
[2016-08-28] MEDS ORDERED: 0.9% Sodium Chloride 1,000 ML IV ONE (13:25)
[2016-08-28] MEDS ORDERED: Ondansetron 2 mg/mL 2 mL Inj IVPUSH ONE (13:25)
[2016-08-28 13:33] LABS: BASOPHILS % (AUTO) 0.5 % (0-3); EOSINOPHILS % (AUTO) 1.7 % (0-5); MONOCYTES % (AUTO) 24.5 % (4-12); Mean Corpuscular Hemoglobin 26.2 pg (27.0-35.0); Mean Corpuscular Volume 82.5 fL (81-100); NEUTROPHILS % (AUTO) 45.7 % (40-74); Platelet Count 318 bil/L (150-400)
[2016-08-28 13:47] LABS: Magnesium 1.9 mg/dL (1.6-2.6)
[2016-08-28] MEDS: 0.9% Sodium Chloride 1,000 ML IV SCH (14:39)
[2016-08-28] MEDS ORDERED: Alum-Mag Hydrox-Simeth 30 mL Suspension PO PRN (14:40)
[2016-08-28] MEDS ORDERED: Polyethylene Glycol (PEG) 17 Gm Powder PO PRN (14:40)
--- NOTE | 2016-08-28 14:46 | PCM.HPMED ---
Subjective Date of Service Aug 28, 2016 Primary Provider: Admitting Physician: Primary Care Physician: Barney Murry MD Attending Physician: Chief Complaint: Refractory nausea/vomiting and abdominal pain. History of Present Illness: Patient is a 66-year-old female recently discharged from the hospital for refractory nausea vomiting abdominal pain associated with metastatic pancreatic cancer now re-presenting via EMS for similar complaint. Following discharge on she notes having a couple of good weeks, however symptoms including nausea vomiting returned making it difficult to take her medications, occluding pain medications which led to an exacerbation of abdominal pain. She has completed 3 cycles of chemotherapy last of which was Folfirinox which she finished in the end of July. She notes the cycle in particular created a good deal of nausea and seems to have exacerbated pain symptoms as well. She has been taking octreotide and receiving Nubain injections made in abdominal pain with some benefit. Her fourth round of chemotherapy was scheduled to begin later this week, following which there was a planned obtain additional studies to assess for efficacy of treatment. Her original diagnosis was in April 2016, at which point diseases are identified to have metastasized beyond pancreas. During my evaluation ER, patient is relatively sedate following administration of IV opiate therapy in addition to anti-medic agents, but is actually much more comfortable. She endorses dry mouth but has achieved some relief in both pain and nausea. She has no other acute complaints, she is still experiencing some discomfort specifically of the right upper quadrant. Denies any shortness of breath or palpitations. She is eating very little over the past 24 hours due to nausea, but nothing as stated. Usually denies any fever or chills. Review of Systems: A 10 point review of systems is conducted and entirely negative excepting pertinent positives and negatives included above history of present illness Allergies Coded Allergies: No Known Allergies (Unverified , 08/28/16) Home Medications Lipase/Protease/Amylase (Creon DR) 12,000 Unit Capsule 1 CAPSULE PO 15-30min before meal Morphine Sulfate ER (Morphine Sulfate ER) 15 Mg Tablet 30 MG PO BID Pantoprazole DR (Protonix) 40 Mg Tablet 40 MG PO BID Sertraline HCl (Zoloft) 50 Mg Tablet 50 MG PO DAILY Sucralfate (Carafate) 1 Gm Tablet 1,000 MG PO TIDAC Scheduled PRN Diphenoxylate/Atropine 2.5-0.025 mg (Lomotil 2.5-0.025 mg) 1 Each Tablet 1 TABLET PO QID PRN PRN For Diarrhea or Loose Stool Hydrocodone-Acetaminophen 5-325 mg (Hydrocodone-Acetaminophen 5-325 mg) 1 Each Tablet 1-2 TABLET PO DAILY PRN PRN For Pain Lorazepam (Lorazepam) 0.5 Mg Tablet 0.5 MG PO HS PRN PRN For Insomnia Ondansetron (Zofran) 8 Mg Tablet 8 MG PO Q6H PRN PRN For Nausea Prochlorperazine Maleate (Compazine) 10 Mg Tablet 10 MG PO Q6H PRN PRN For Nausea PMH Pancreatic cancer, metastatic HTN Depression Anxiety Surgical History R partial knee replacement 2 years ago Tonselectomy Family History Father 90 and brother 64 prostate cancer still living Mother 78 parkinsons Social History Hx Alcohol Use: Yes Hx Substance Use: No Smoking Status: Former Smoker Exam Vital Signs Vital Sign - Last Date Time Temp Pulse Resp B/P Pulse Ox O2 Delivery O2 Flow Rate FiO2 08/28/16 13:08 36.6 90 20 113/72 94 Room Air General: Alert, Cooperative, Moderate Distress, Other (patient is mildly sedate but is alert and responsive to questions) Eyes: PERRLA, EOMI, Other (pupils are mildly constricted) Mouth: Mucous Membranes Dry Neck: Supple Chest & Lungs: Clear to auscultation & percussion, Other (diffuse coarse breath sounds may be related to upper airway secretions) Cardiovascular: Regular Rate/Rhythm, No Murmurs/Rubs/Gallops Abdomen: Tender, Non-distended, Other (abdomen is firm right upper quadrant exquisitely tender bowel sounds mildly hypoactive) Extremities: No cyanosis/clubbing/edma bilat Neurological: Grossly Neurologically Intact Lab and Diagnostics Result Diagram: 08/28/16 1324 08/28/16 1324 Assessment & Plan 66 year old female past medical history most significant for metastatic pancreatic cancer presenting with refractory nausea and vomiting and exacerbation of pain likely related to a combination of metastatic disease and recent chemotherapy. Admitted for supportive care hydration further medical evaluation and treatment plan. 1. Metastatic pancreatic cancer - We will admit patient at this time for supportive care - Intravenous fluids provided emergency department and will be continued 100 mL per hour admissions for - Additionally continue intravenous opiate medication, chemoembolization we will trial morphine in place of Dilaudid, but may consider higher potency opiate if needed. - Additionally provide intravenous antiemetic medications including Zofran and Phenergan - Dr. Locke will be notified of patient's admission - In addition I would consider consultation with palliative care in the morning to further discuss treatment planning possibility of a transition to hospice type care, as prognosis appears very poor. Benefits and possibilities of curative treatment should be balanced with likely side effects of chemotherapy at this time. - Given patient is nothing by mouth we will hold pancreatic lipase at this time consider restarting with advancement of diet 2. Abdominal pain - As noted above this is likely related to metastatic disease process - Treatment with IV opiates as mentioned above 3. Refractory nausea vomiting - Again likely related to metastatic disease in conjunction with recent chemotherapy - We will continue antiemetic agents IV at this time, in addition intravenous fluids - Transition to oral agents as tolerated. 4. Erosive gastritis - She was noted on endoscopy during previous admission beginning of July - P was prescribed Carafate, given nothing by mouth status will hold this medication. - Continue Protonix pump inhibitor IV. Pain Evaluation: Adequate Pain Control GI Prophylaxis: Not indicated VTE Mechanical Devices: Intermittant Pneumatic CD Resuscitation Status: DNR/DNI:Do Not Resuscitate/Intubate Time spent 60 minutes Wong Rodriguez DO Aug 28, 2016 14:46
[2016-08-28] MEDS ORDERED: LIPASE PO SCH (16:30)
[2016-08-28] MEDS ORDERED: Promethazine Inj 50 MG in 0.9% Sodium Chloride-Pha MIX 100 ML IV PRN (16:30)
[2016-08-28] MEDS ORDERED: AMYLASE PO SCH (16:30)
[2016-08-28] MEDS ORDERED: PROTEASE PO SCH (16:30)
[2016-08-28] MEDS ORDERED: Sucralfate 1,000 mg Tablet PO SCH (17:00)
[2016-08-28 17:14] VITALS: BP 137/82; PULSE 90; RESP 16; O2SAT 95
[2016-08-28] MEDS: Pantoprazole 4 mg/mL 10 mL Inj IVPUSH SCH (17:26)
--- NOTE | 2016-08-28 18:52 | NUR ---
Admit Pt admitted to [facility] room 3022 via stretcher from ED at approximately 1600 with IV running. Pt alert and oriented x 2, at side, pt was unable to move self over to bed. Admit complete with exception of med req, will let NOC shift know, list is in chart. Pt resting comfortably, with call light within reach, bed low and locked, intentional rounding.
[2016-08-28 21:39] VITALS: BP 121/65; PULSE 77; RESP 16; O2SAT 96
[2016-08-29] MEDS: 0.9% Sodium Chloride 1,000 ML IV SCH ×3 (00:22→21:26)
[2016-08-29 04:40] VITALS: BP 124/67; PULSE 73; RESP 16; O2SAT 98
--- NOTE | 2016-08-29 07:23 | NUR ---
Pain: Pt reported tolerable to no pain through the night. Was able to sleep between care. Turned every couple hours due to redness in the sacral area, blanchable. Pt alert and oriented x3, one time pt did state she was at [facility] "cooking", realizing as soon as it was said it was not correct.
[2016-08-29] MEDS: Pantoprazole 4 mg/mL 10 mL Inj IVPUSH SCH (09:37)
[2016-08-29 09:51] LABS: BASOPHILS % (AUTO) 0.5 % (0-3); EOSINOPHILS % (AUTO) 1.7 % (0-5); MONOCYTES % (AUTO) 20.9 % (4-12); Mean Corpuscular Hemoglobin 26.4 pg (27.0-35.0); Mean Corpuscular Volume 85.9 fL (81-100); NEUTROPHILS % (AUTO) 54.8 % (40-74); Platelet Count 186 bil/L (150-400)
[2016-08-29] MEDS: Ondansetron 2 mg/mL 2 mL Inj IVPUSH PRN ×2 (11:27→17:51)
--- NOTE | 2016-08-29 11:35 | NUR ---
Palliative Care Palliative Care received verbal order from Dr Rodriguez 08/29/16 to assist with goals of care. Patient is a 66 year old woman with metastatic pancreatic cancer. Alex Aguirre () [phone], Carmen Grady (daughter) [phone] Palliative Care will meet with family today at 2 p.m. for FCTM. Keyonna Ponce
--- NOTE | 2016-08-29 12:48 | PCM.PNMED ---
Subjective Date of Service Aug 29, 2016 Subjective Patient is feeling significantly improved overnight. Her nausea has essentially resolved with treatment, her abdominal pain is still present but not morbid tenderness. She does not have a great appetite but was able to eat some clear liquids for breakfast, but having a craving for yogurt currently. She had some stool this morning which was watery or at least loose but certainly not bloody or dark. She has had no further emesis this morning. Exam Vital Signs Vital Sign - Last Date Time Temp Pulse Resp B/P Pulse Ox O2 Delivery O2 Flow Rate FiO2 08/29/16 04:40 36.6 73 16 124/67 98 Room Air 08/28/16 13:10 2 Intake and Output 08/28/16 08/28/16 08/29/16 Cumulative From/Thru 15:00 23:00 07:00 08/28/16 14:52 - 08/29/16 04:46 Intake Total 0 ml 1148 ml 1148 ml Output Total 0 ml 0 ml Balance 0 ml 1148 ml 1148 ml Intake Oral 0 ml 0 ml IV Total 1148 ml 1148 ml Output Urine Total 0 ml 0 ml Exam General: Alert, Cooperative, no acute Distress, Eyes: PERRLA, EOMI, pupils are normal size Mouth: Mucous Membranes now moist Neck: Supple Chest & Lungs: Clear to auscultation & percussion, coarse breath sounds noted diffusely Cardiovascular: Regular Rate/Rhythm, No Murmurs/Rubs/Gallops Abdomen: Tender, Non-distended, abdomen is soft with some tenderness still present in right upper quadrant and lower left quadrant most particularly Extremities: No cyanosis/clubbing/edema bilat Neurological: Grossly Neurologically Intact IVs and Medications Medications Reviewed: Medications were reviewed in detail Lab and Diagnostics Result Diagram: 08/29/1645 08/29/1645 Assessment & Plan 66 year old female past medical history most significant for metastatic pancreatic cancer presenting with refractory nausea and vomiting and exacerbation of pain likely related to a combination of metastatic disease and recent chemotherapy. Admitted for supportive care hydration further medical evaluation and treatment plan. 1. Metastatic pancreatic cancer - We will admit patient at this time for supportive care - Intravenous fluids provided emergency department and will be continued 100 mL per hour as diet is advanced - Additionally continue intravenous opiate medication, chemoembolization we will trial morphine in place of Dilaudid, but may consider higher potency opiate if needed. - Additionally provide intravenous antiemetic medications including Zofran and Phenergan - Dr. Locke was notified and plans to see patient this evening. - In addition I would consider consultation with palliative care consultation , as discussed more with Dr. Locke, states he is not opposed to them discussing options related to palliation prior to that if the family is amenable . He does note however that there is still some hope that fourth round of chemotherapy will produce some effect, and there was a plan to await digital screening studies prior to considering transition to hospice care. - Given patient is nothing by mouth we will hold pancreatic lipase at this time as we proceed with advancement of diet 2. Abdominal pain - As noted above this is likely related to metastatic disease process - Treatment with IV opiates as mentioned above has been very effective, pain good control. - Anticipate transition to oral therapies prior to discharge, daily next 1-2 days 3. Refractory nausea vomiting - Again likely related to metastatic disease in conjunction with recent chemotherapy - We will continue antiemetic agents IV at this time, in addition intravenous fluids - Goal to transition to oral agents as tolerated. 4. Erosive gastritis - She was noted on endoscopy during previous admission beginning of July - P was prescribed Carafate, given nothing by mouth status will hold this medication. - Continue Protonix pump inhibitor IV. Pain Evaluation: Adequate Pain Control GI Prophylaxis: Not indicated VTE Mechanical Devices: Intermittant Pneumatic CD Resuscitation Status: DNR/DNI:Do Not Resuscitate/Intubate Time spent 35 minutes Wong Rodriguez DO Aug 29, 2016 12:48
[2016-08-29] MEDS: 0.9% Sodium Chloride 250 ML IV SCH (12:56)
[2016-08-29] MEDS ORDERED: Sodium Chloride LOK Flush 10 mL Syringe IVFLUSH PRN ×2 (13:00)
[2016-08-29] MEDS ORDERED: HepLOK Flush 100 unit/mL 5 mL Inj IVFLUSH PRN (13:00)
[2016-08-29 13:24] VITALS: BP 168/81; PULSE 72; RESP 16; O2SAT 96
[2016-08-29] MEDS ORDERED: DEXAMETHASONE IV SCH (15:00)
[2016-08-29] MEDS ORDERED: OCTREOTIDE IV SCH (15:00)
[2016-08-29] MEDS ORDERED: [UNRECOGNIZED DRUG - OTHER] IV SCH (15:00)
[2016-08-29] MEDS ORDERED: HALOPERIDOL IV SCH (15:00)
--- NOTE | 2016-08-29 15:20 | NUR ---
Social Work - Initial Assessment Data:See initial assessment. Pt is a 66 y/o female admitted on08/28/16 for metastatic CA per H&P. Pt's insurance is Medicare and [employer] supplemental and PCP is Barney Murry MD. EMR reviewed. SW mt with pt at bedside to discuss discharge planning, SW role explained. Pt is alert and oriented x3. Pt resides in a single level condo with no stairs. Pt reports no issues with ambulation, is independent at baseline, and remains independent with ADLs. Pt has no HH or SNF history. Pt reports that they are working on completing DPOA/Advanced Directive and will provide a copy to the hospital when completed. Pt has no termination clerk care or VA benefits. Pt is followed by Dr. Locke at [facility]. Pt's Alex [phone] to provide transport home at discharge. No needs anticipated at this time. SW provided phone number and plan on white board in room. SW will continue to follow. Assessment: Pt who is independent at baseline. Plan: Pt to discharge home when medically stable via POV. No anticipated discharge needs. SW will continue to follow if needs arise. NANCY Epps Addendum: 08/29/16 at 1524 by MOE WHEELER Amended: Links added.
--- NOTE | 2016-08-29 16:09 | PCM.CONPAL ---
Date of Service Aug 29, 2016 Date of Hospital Admission: Aug 28, 2016 at 15:16 Date of Palliative Consult: Aug 29, 2016 Requesting Provider: Wong Rodriguez DO Reason Palliative Care Consult: Goals of Care Discussion Reason for Consultation Palliative Care received order from Dr. Rodriguez to assist with goals of care. Patient admitted on 08/28/2016. Hospital Unit @time of consult: Medical/Pediatric Care (rm [id number]) Palliative Care Recommendation Summary of palliative recommendations: -Symptom management (Pain/other): Nausea and vomiting. Patient currently receiving Zofran 4 to 8mg IV every 4 hours as needed. 1. Start anti-emetic formula (AEF): continuous drip consisting of dexamethasone 8mg, Haldol 6mg and octreotide 600mcg. These will be in a volume of 120mL to be run at 5mL/hour and run at this rate for at least 3 days. 2. D/C Zofran, once AEF has been started. PC team will follow tomorrow to evaluate effectiveness of this regimen -DPOA/Advanced Directives/POLST: 1. Code status: DNR/DNI 2. HCPOA is , John Aguirre, [phone]. 3. No prior POLST or AD paperwork. -Family/emotional support: Good family support. is John Aguirre -Spiritual support: Not discussed Patient Goals: to be determined after further discussion tomorrow. Today, her goal is better control of symptoms. Dr. Cornelia Macario will meet with her and her and offer his advise. Additional Medical Diagnoses with primary management by Hospitalist team include : 1. Metastatic pancreatic cancer 2. Abdominal pain 3. Refractory nausea vomiting 4. Erosive gastritis . Problems: Goals of Care To be discussed Disposition To be determined pending hospital course Resuscitation Status Resuscitation Status: DNR/DNI:Do Not Resuscitate/Intubate . Pain: Mild Symptom management: Nausea, Vomiting, Anxiety Pt History History of Present Illness Per admission H&P: Patient is a 66-year-old female recently discharged from the hospital for refractory nausea vomiting abdominal pain associated with metastatic pancreatic cancer now re-presenting via EMS for similar complaint. Following discharge on she notes having a couple of good weeks, however symptoms including nausea vomiting returned making it difficult to take her medications, occluding pain medications which led to an exacerbation of abdominal pain. She has completed 3 cycles of chemotherapy last of which was Folfirinox which she finished in the end of July. She notes the cycle in particular created a good deal of nausea and seems to have exacerbated pain symptoms as well. She has been taking octreotide and receiving Nubain injections made in abdominal pain with some benefit. Her fourth round of chemotherapy was scheduled to begin later this week, following which there was a planned obtain additional studies to assess for efficacy of treatment. Her original diagnosis was in April 2016, at which point diseases are identified to have metastasized beyond pancreas. During my evaluation ER, patient is relatively sedate following administration of IV opiate therapy in addition to anti-medic agents, but is actually much more comfortable. She endorses dry mouth but has achieved some relief in both pain and nausea. She has no other acute complaints, she is still experiencing some discomfort specifically of the right upper quadrant. Denies any shortness of breath or palpitations. She is eating very little over the past 24 hours due to nausea, but nothing as stated. Usually denies any fever or chills. Palliative medicine consulted to assist in determination of patient's goals of care. Prior to visiting, records in the EMR were reviewed in detail, both for this and her previous admission. Patient's , Alxe Aguirre, is at bedside at the time of visit. The patient demonstrates pretty severe nausea during this time and is in no condition to discuss her goals of care. Her states the patient has been having severe nausea and vomiting following her last cycle of chemotherapy. She had a brief period of feeling relatively well but has since experienced severe nausea, vomiting four times so far today. This had made eating very difficult with resulting weight loss and weakness - namely, difficulty trying to stand. Yesterday, the patient has mentioned that she did not want to continue chemotherapy; however, her felt that her decision may have been irrational as she has been medicated with morphine. Patient is due for another cycle of chemotherapy anticipated for later this week with repeat CT scan to determine the effectiveness of her current chemotherapy. Since the patient's nausea is currently not controlled, the patient and her express interest in trying another anti-emetic regimen. Social History Living Situation: Lives with in their condominium in [place] ADLs ADL Patient Status: Current ADL Ambulation: Mainly Bed ADL Transfers: Considerable assistance required Allergy Allergies Reviewed: Yes Medications Current Medications: Current Medications Hydromorphone HCl 1 mg 1 mg Q15MIN PRN IVPUSH; Start 08/28/16 at 13:25; Stop 08/28/16 at 16:38; Status DC Sodium Chloride 1,000 ml @ 100 mls/hr Q10H IV Last administered on 08/29/16 09: 59; Admin Dose 100 MLS/HR; Start 08/28/16 at 14:39 Al Hydrox/Mg Hydrox/Simethicone 30 ml Q6H PRN PO; Start 08/28/16 at 14:40 Ondansetron HCl 4 to 8 mg Q4H PRN IVPUSH Last administered on 08/29/16 11:27; Admin Dose 4 MG; Start 08/28/16 at 14:40 Senna 17.2 mg BID PRN PO; Start 08/28/16 at 14:40 Polyethylene Glycol 17 gm DAILY PRN PO; Start 08/28/16 at 14:40 Morphine Sulfate 1-2 mg Q4H PRN IV; Start 08/28/16 at 14:40; Stop 08/28/16 at 16: 31; Status DC Morphine Sulfate 1-4 mg Q4H PRN IV; Start 08/28/16 at 18:40 Sertraline HCl 50 mg DAILY PO Last administered on 08/29/16 09:37; Admin Dose 50 MG; Start 08/29/16 at 08:30 Sucralfate 1,000 mg TIDAC PO; Start 08/28/16 at 17:00; Stop 08/28/16 at 17:00; Status DC Lorazepam 0.5 mg 0.5 mg Q4H PRN IVPUSH; Start 08/28/16 at 16:30 Promethazine HCl/ Sodium Chloride 101 ml @ 303 mls/hr Q12H PRN IV; Start at 16:30 Pantoprazole 40 mg 40 mg DAILYAC IVPUSH Last administered on 08/29/16 09:37; Admin Dose 40 MG; Start 08/28/16 at 16:35 Sodium Chloride 250 ml @ 10 mls/hr Q24H IV; Start 08/29/16 at 12:56 Dexamethasone Sodium Phosphate/ Haloperidol Lactate/ Octreotide Acetate/Sodium Chloride 120 ml @ 5 mls/hr Q24H IV; Start 08/29/16 at 15:00; Stop 09/01/16 at 14: 59 Scheduled Lipase/Protease/Amylase (Creon DR) 12,000 Unit Capsule 1 CAPSULE PO 15-30min before meal Morphine Sulfate ER (Morphine Sulfate ER) 15 Mg Tablet 30 MG PO BID Pantoprazole DR (Protonix) 40 Mg Tablet 40 MG PO BID Sertraline HCl (Zoloft) 50 Mg Tablet 50 MG PO DAILY Sucralfate (Carafate) 1 Gm Tablet 1,000 MG PO TIDAC Scheduled PRN Diphenoxylate/Atropine 2.5-0.025 mg (Lomotil 2.5-0.025 mg) 1 Each Tablet 1 TABLET PO QID PRN PRN For Diarrhea or Loose Stool Hydrocodone-Acetaminophen 5-325 mg (Hydrocodone-Acetaminophen 5-325 mg) 1 Each Tablet 1-2 TABLET PO DAILY PRN PRN For Pain Lorazepam (Lorazepam) 0.5 Mg Tablet 0.5 MG PO HS PRN PRN For Insomnia Ondansetron (Zofran) 8 Mg Tablet 8 MG PO Q6H PRN PRN For Nausea Prochlorperazine Maleate (Compazine) 10 Mg Tablet 10 MG PO Q6H PRN PRN For Nausea Objective Findings Exam Vital Sign - Last Date Time Temp Pulse Resp B/P Pulse Ox O2 Delivery O2 Flow Rate FiO2 08/29/16 13:24 36.3 72 16 168/81 96 Room Air 08/28/16 13:10 2 Intake and Output 08/28/16 08/28/16 08/29/16 Cumulative From/Thru 14:59 22:59 06:59 08/28/16 14:52 - 08/29/16 04:46 Intake Total 0 ml 1148 ml 1148 ml Output Total 0 ml 0 ml Balance 0 ml 1148 ml 1148 ml Intake Oral 0 ml 0 ml IV Total 1148 ml 1148 ml Output Urine Total 0 ml 0 ml General: Alert/Oriented x3, Moderate distress HEENT: Atraumatic, EOMI Neuro: Other (Grossly neurologically intact) Lab/Diagnostics Lab and Imaging results reviewed in detail in EMR. Time spent Total time 100 minutes; >50% face to face with patient and/or family, providing counselling regarding plans and recommendations, and in care coordination with his/her medical teams. Attending Statement Dr. Thompson was physically present and available throughout conversation with pt , . Dr. Payne led discussion. We discussed N&V management plan together. I agree with Dr. Payne's documentation of plan as above. Rolf Payne DO Aug 29, 2016 15:20 Trish Thompson MD Aug 29, 2016 16:46
--- NOTE | 2016-08-29 16:37 | NUR ---
NUTRITION ASSESSMENT: ASSESS: 66 YO F admitted for refractory nausea/vomiting and abd. pain. Pt with history of pancreatic CA, metastasis to liver, currently undergoing chemo. Palliative care meeting planned for today. PMHX: Pancreatic cancer with metastatic disease, HTN, depression, anxiety. DIET: Full Liquids, No po intake reported. LABS: Reviewed. K+ 3.1, Cr 1.24, Glu 159, Alb 3.0, Alk Phos 244. MEDS: Reviewed. Folfirinox, Medical Marijuana GI: BM x 1 (08/29) WEIGHT: 54.7 kg. previous wt (06/08/16) 68.0 kg. EST.NEEDS: CANCER Kcal: 3768-8299 (30-40 kcals/kg BW) Pro: 80-110 g (1.5-2.0 g/kg BW) NUTRITION DIAGNOSIS: (1) Inadequate oral intake related to decreased appetite as evidenced by severe weight loss of 19.6% and reported poor appetite INTERVENTION: (1) Will add mighty shakes to all trays. (2) Pt educated on high calorie / high protein intake on prior admit. MONITOR/EVALUATE: PO intake, labs, nutritional status, POC. Follow per high nutritional risk guidelines.
--- NOTE | 2016-08-29 18:40 | NUR ---
PAIN/Nausea Pt reported mild discomfort at beginning of shift in the abdomen. Discomfort increased during the day to abdominal side tightness then to pain. Pt reported pain to be at 6/10 in abdomen. Given PRN IV Morphine. Reports pain to be reduced to 2/10 or peacefully sleeping. Pt vomited small amount during the morning. Given PRN IV Zofran for nausea/vomiting. Nausea resolved. Given later in day as nausea returned. Instructed to alert staff for pain and nausea needs. Family in room to assist with care.
[2016-08-29 21:37] VITALS: BP 158/76; PULSE 76; RESP 18; O2SAT 97
--- NOTE | 2016-08-29 22:04 | PROG NOTE ---
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 She has received now the third cycle of chemotherapy with dose reduced FOLFIRINOX (5-FU, irinotecan and oxaliplatin) on August 17, 2016, close to two weeks ago. She is also on octreotide injections every four weeks. Her last CT scan was done on July 27, which was barely at the beginning of the therapy, and we are we were planning on repeating a CT scan in mid August for comparison. She has had previous problems with unclear intractable nausea and vomiting issues that will lead to her not being able to take her other meds with a vicious cycle of then increasing pain, etc. With last hospitalization she was also evaluated both by Gastroenterology and Palliative Care and was started on a scheduled dose of antiemetics with Compazine, Zofran and lorazepam which was effective and she was discharged. When I saw her last week on August 23 she was doing reasonably well. Unfortunately, on Monday, she had another burst of nausea issues and this cycle has started again. She already has had an EGD by Dr. Cordova as discussed in my note of August 23. On admission, her creatinine was at abnormal with 1.48 yesterday on August 28 likely due to dehydration. Her creatinine was normal when I saw her last on August 23. The patient has been seen by Palliative Care team today after conversations both been myself and the hospitalist team and started on "antiemetic drip." She appears quite lethargic and sleepy. Her vitals show no fever, blood pressure is stable, O2 sat 96% on room air. Lungs clear. Portal catheter without signs of inflammation. Abdomen is soft. Labs show a white count of 4.2, hemoglobin 8.6, platelets 186. Chemistry shows a potassium 3.1. Creatinine today improved to 1.24 from 1.48 yesterday. Liver enzymes normal. Albumin down to 3.0. 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 She has so far had only three cycles of chemotherapy, the last one given 12 days ago. She has been readmitted with again intractable nausea on Monday. This is again not related to chemotherapy given the time interval, as with the previous admission this is most likely caused by the infiltrative process of malignancy in the tail of the pancreas affecting the stomach wall. I am concerned that her disease might not be responding to treatment given the rise of her CA19-9 over the past six weeks. Our plan was to obtain a CT scan in mid August to compare with the scan of July 27. In lieu of this admission, it might be advisable to obtain the CT scan while she is in the hospital, however, we would want her creatinine to improve further. After another day or two of hydration, once creatinine normalized, I would recommend a CT scan of chest, abdomen and pelvis with contrast. If there is disease progression, as discussed with the family before, we might have to transition her to palliative care alone. Otherwise, she had planned to continue therapy, particularly as she feels somewhat improved the first week after each dose of chemotherapy, but then deteriorates shortly before the next cycle is due.
[2016-08-30 05:03] VITALS: BP 160/81; PULSE 78; RESP 16; O2SAT 98
--- NOTE | 2016-08-30 05:45 | NUR ---
Uneventful Night: Pt had an uneventful night, denied pain, chest pain, SOB, and nausea. Pt was up to BR several times during the night, walking with SBA, pt states she feels stronger. Potassium noted to be 3.1 at start of NOC shift, MD notified, no new orders. Seven BM's documented for 08/29. Pt slept most of the night, pleasant and cooperative with care.
[2016-08-30] MEDS: 0.9% Sodium Chloride 1,000 ML IV SCH ×2 (06:46→19:48)
[2016-08-30] MEDS: Pantoprazole 4 mg/mL 10 mL Inj IVPUSH SCH (08:31)
--- NOTE | 2016-08-30 08:42 | PCM.PNMED ---
Subjective Date of Service Aug 30, 2016 Subjective Patient is nauseated at time of my visit after getting up to go to the bathroom. Notes overall feeling significantly improved since her presentation, but still notes intermittent episodes of nausea with vomiting and also abdominal pain. Denies any fever chills at this point. Pain overall is in good control, as his nausea with provided when necessary medications. Exam Vital Signs Vital Sign - Last Date Time Temp Pulse Resp B/P Pulse Ox O2 Delivery O2 Flow Rate FiO2 08/30/16 05:03 36.7 78 16 160/81 98 Room Air 08/28/16 13:10 2 Intake and Output 08/29/16 08/29/16 08/30/16 Cumulative From/Thru 15:00 23:00 07:00 08/28/16 14:52 - 08/30/16 06:35 Intake Total 0 ml 2167 ml 1379 ml 4694 ml Output Total 100 ml 450 ml 550 ml Balance -100 ml 1717 ml 1379 ml 4144 ml Intake Oral 0 ml 800 ml 300 ml 1100 ml IV Total 1367 ml 1079 ml 3594 ml Output Urine Total 100 ml 100 ml Urine/Stool Mix 450 ml 450 ml # Voids 2 2 # Bowel Movements 1 6 1 8 Exam General: Alert, Cooperative, no acute Distress, Eyes: PERRLA, EOMI, pupils are normal size Mouth: Mucous Membranes now moist Neck: Supple Abdomen: Tender, Non-distended, a Extremities: No cyanosis/clubbing/edema bilat Neurological: Grossly Neurologically Intact IVs and Medications Medications Reviewed: Medications were reviewed in detail Lab and Diagnostics Result Diagram: 08/29/16 0945 08/29/16 0945 Assessment & Plan 66 year old female past medical history most significant for metastatic pancreatic cancer presenting with refractory nausea and vomiting and exacerbation of pain likely related to a combination of metastatic disease and recent chemotherapy. Admitted for supportive care hydration further medical evaluation and treatment plan. 1. Metastatic pancreatic cancer - We will admit patient at this time for supportive care - Intravenous fluids provided emergency department and will be continued 100 mL per hour as diet is advanced - Additionally continue intravenous opiate medication, chemoembolization we will trial morphine in place of Dilaudid, but may consider higher potency opiate if needed. - Dr. Locke has been consulted and is following patient. - In addition Palliative care has become involved at this time for support with symptom managament, but may consider discussing hospice options depending on condition and prognosis based on further studies to be obtained during this hospitalization. - Advancing diet with some success. - Continue IVFs in addition, however given elevated blood pressure in resolving renal insufficiency we will decrease rate to 50 mL per hour. - At recommendation of Oncologist we will consider repeat CT scan with contrast in a couple of days with stable renal function to determine nature of maligancy and if condition has continued to be progressive. - Further treatment planning/goals of care will be discussed following this test result. 2. Abdominal pain - As noted above this is likely related to metastatic disease process - Treatment with IV opiates as mentioned above has been very effective, pain good control. - Anticipate transition to oral therapies prior to discharge, daily next 1-2 days 3. Refractory nausea vomiting - Again likely related to metastatic disease in conjunction with recent chemotherapy - We will continue IVFs as noted above - Goal to transition to oral agents as tolerated. - Currently patient is receiving Zofran and Phenergan PRN in addition to steroid drip started on recommendation of Palliative care for further symptoms relief. 4. Erosive gastritis - She was noted on endoscopy during previous admission beginning of July - P was prescribed Carafate, given nothing by mouth status will hold this medication. - Continue Protonix pump inhibitor IV. Pain Evaluation: Adequate Pain Control GI Prophylaxis: Not indicated VTE Mechanical Devices: Intermittant Pneumatic CD Resuscitation Status: DNR/DNI:Do Not Resuscitate/Intubate Time spent 30 minutes Wong Rodriguez DO Aug 30, 2016 08:42
[2016-08-30] MEDS: Ondansetron 2 mg/mL 2 mL Inj IVPUSH PRN ×2 (08:58→11:07)
--- NOTE | 2016-08-30 09:40 | PCM.PALLBR ---
Palliative Care Recommendation Summary of palliative recommendations: -Symptom management (Pain/other): Nausea, vomiting and pain. 1. N&V: Reviewed effectiveness of AEF regimen with pt. She was ok overnight, but with moving to BR this a.m., she had nausea and vomiting that responded to additional zofran prn. a. We will modify the anti-emetic formula (AEF): increase dexamethasone to 10mg and octreotide to 1200mcg. D/C haldol, replacing it with ondansetron 8mg.These will be in a volume of 120mL and run at 5mL/hour until 09/01/2016. b. Patient can then be transitioned to oral daily dexamethasone after this period. 2. Pain: Schedule morphine 1mg IV every 4 hours and continue morphine 1-4mg Q4 PRN for breakthrough pain. PC team will continue to follow daily (M-F) to evaluate effectiveness of nausea and pain regimen -DPOA/Advanced Directives/POLST: 1. Code status: DNR/DNI 2. HCPOA is , John Aguirre, [phone]. 3. No prior POLST or AD paperwork. -Family/emotional support: Excellent family support. is John Aguirre, daughter is Carmen and brother is Garret. -Spiritual support: Not discussed Patient Goals: to be determined. Today, her goal continues to be better control of symptoms. Additional Medical Diagnoses with primary management by Hospitalist team include : 1. Metastatic pancreatic cancer 2. Abdominal pain 3. Refractory nausea vomiting 4. Erosive gastritis . Problems: Goals of Care To be discussed Disposition To be determined pending hospital course Resuscitation Status Resuscitation Status: DNR/DNI:Do Not Resuscitate/Intubate Total time 35 minutes; >50% face to face with patient and/or family, providing counselling regarding plans and recommendations, and in care coordination with his/her medical teams. Attending Statement Dr. Thompson physically present and available to resident during his evaluation/ family discussion. I supervised his management plan and recommendations and agree with his documentation of our plan as detailed above. Palliative Brief Note Date of Service Aug 30, 2016 . Rounded on patient today with Dr. Thompson. Prior to visiting, the records in the EMR were reviewed in detail and discussed patient with bedside nurse. Patient's family and friends are at bedside at time of visit. In addition to her , Alex, the patient's daughter and brother (Carmen and Garret, respectively) are present. The patient reports less nausea overnight but this morning when she got up to use the restroom she experienced some nausea with an episode of emesis. Her concern at the moment is some pain. Prior to visiting, the patient had just received morphine. Dr. Locke, patient's oncologist, saw the patient yesterday and the current plan is to continue supportive treatment with IV fluids and anti-emetics. When her creatinine improves then a CT scan of chest, abdomen and pelvis with contrast will be obtained to identify if there has been disease progression. Patient's future plans will be influenced by the results of the CT scan - if there is evidence of disease progression then transition to palliative care will be considered otherwise patient will likely continue with chemotherapy. Patient and her seem to have a good understanding of the plan going forward. Patient looks comfortable in bed, she is in no acute distress now, but just had 4mg IV morphine. Labs reviewed in detail. Rolf Payne DO Aug 30, 2016 09:40 Trish Thompson MD Aug 30, 2016 11:02
[2016-08-30 09:57] LABS: BASOPHILS % (AUTO) 0.6 % (0-3); EOSINOPHILS % (AUTO) 6.7 % (0-5); MONOCYTES % (AUTO) 13.1 % (4-12); Mean Corpuscular Hemoglobin 27.6 pg (27.0-35.0); Mean Corpuscular Volume 82.4 fL (81-100); NEUTROPHILS % (AUTO) 60.3 % (40-74); Platelet Count 191 bil/L (150-400)
[2016-08-30] MEDS ORDERED: Potassium Chloride Inj 30 MEQ in Dextrose 5% 500 ML IV ONE (10:30)
[2016-08-30] MEDS: 0.9% Sodium Chloride 250 ML IV SCH (12:56)
[2016-08-30 13:23] VITALS: BP 173/79; PULSE 66; RESP 18; O2SAT 98
[2016-08-30] MEDS: OCTREOTIDE IV SCH (17:29)
[2016-08-30] MEDS: DEXAMETHASONE IV SCH (17:29)
[2016-08-30] MEDS: ONDANSETRON IV SCH (17:29)
[2016-08-30] MEDS: [UNRECOGNIZED DRUG - OTHER] IV SCH (17:29)
--- NOTE | 2016-08-30 18:00 | NUR ---
pain P:pt c/o pain 06/03 I: repositioned pt and the primary nurse gave pain med E:pt reports pain 04/05 S:bed down, locked, 2 rails up, call light in reach
--- NOTE | 2016-08-30 18:14 | CCS NOTE ---
[facility] [address], [address] [address] MEDICAL ONCOLOGY OFFICE NOTE PATIENT: ELLYN DOUGLAS : 1950 MR#: [id number] DATE: 08/28/2016 JOB ID: [id number] DATE: 08/30/2016 SUBJECTIVE: The patient appears somewhat improved today, more interactive and somewhat less dysarthric. She still had some episodes of dry heaving but less vomiting issues. No abdominal tenderness at this point. Her blood pressure is 173/79, afebrile. No edema. Antiemetic drip combined with dexamethasone, ondansetron and octreotide is ongoing, and she is also on some IV fluids that are running at 50 cc an hour. LABORATORIES: Show improvement of kidney function, creatinine coming down to 0.86 from 1.48 on admission. CBC stable. ASSESSMENT/PLAN: A 66-year-old, unfortunate lady with metastatic high-grade neuroendocrine carcinoma. Details summarized in my note of yesterday. Her renal function has improved with hydration and it was prerenal azotemia. To assess the current status of cancer and facilitate discussion of goals of care and further management, I suggested that we now obtain a CT scan with contrast and continue hydration to support kidney function. I took the liberty to order the CAT scan for tomorrow morning.
--- NOTE | 2016-08-30 18:20 | NUR ---
NAUSEA/VOMITING/DIARRHEA Pt up to BR as SBA. Pt experiencing frequent diarrhea and occasional incontinence d/t rapid onset of urge. Once getting pt back into bed and pt drinking water, pt experiences nausea and vomiting. Administered PRN Zofran and nausea resolved. MD and team informed. New IV medication changed to include Zofran. Instructing pt to drink less after ambulation and careful with movements. Reduced Nausea for remaining of shift.
[2016-08-30 19:32] VITALS: BP 155/73; PULSE 72; RESP 16; O2SAT 98
--- NOTE | 2016-08-31 03:11 | NUR ---
NOC shift note. Patient has had no emesis overnight. IV medications given as ordered. Reports abdominal pain at 6/10, Morphine effective. Assisted with repositioning for increased comfort. Vital signs stable, BP elevated. Call light within reach, bed alarm on, intentional rounding in place.
[2016-08-31 03:38] VITALS: BP 171/78; PULSE 76; RESP 16; O2SAT 98
[2016-08-31 04:25] LABS: BASOPHILS % (AUTO) 0 % (0-3); EOSINOPHILS % (AUTO) 0 % (0-5); MONOCYTES % (AUTO) 10.8 % (4-12); Mean Corpuscular Hemoglobin 26.3 pg (27.0-35.0); Mean Corpuscular Volume 83.8 fL (81-100); NEUTROPHILS % (AUTO) 70.3 % (40-74); Platelet Count 239 bil/L (150-400)
[2016-08-31] MEDS: Pantoprazole 4 mg/mL 10 mL Inj IVPUSH SCH (08:11)
--- NOTE | 2016-08-31 08:19 | PCM.PNMED ---
Subjective Date of Service Aug 31, 2016 Subjective Patient had dramatic events little after lunch time this afternoon, during which time she was became unresponsive prompting family member to quickly requests nurse to evaluate further. Her nursing evaluation patient was entirely unresponsive prompting calling a code stroke. When I responded to code stroke patient was measuring a generalized convulsion, has significant amount of saliva omitted from mouth eyes deviated left and she was entirely nonresponsive. Event lasted approximately 5 minutes at which time patient demonstrated labored breathing better resolution of convulsive motions. He slowly appeared during Rei level of alertness responding to verbal stimuli however was still nonverbal. Acute evaluations including blood sugar testing vitals, heart monitoring and routine lab studies demonstrated no abnormalities, and stat CT head was ordered to rule out possible central process. Prior to this patient's right-sided Ativan given restless nature and concern for seizure- like activities, is was high sedating and patient was quite relaxed following this but still not responsive verbally to questions. CT scan did not fact demonstrate central mass which would be consistent with a metastatic process, strongly suggestive of seizure as the cause of patient's acute mental status change. She had been evaluated prior in the morning feeling very well nausea and pain essentially resolved and optimistic about leaving shortly after scan. Exam Vital Signs Vital Sign - Last Date Time Temp Pulse Resp B/P Pulse Ox O2 Delivery O2 Flow Rate FiO2 08/31/16 03:38 37.0 76 16 171/78 98 Room Air 08/28/16 13:10 2 Intake and Output 08/30/16 08/30/16 08/31/16 Cumulative From/Thru 15:00 23:00 07:00 08/28/16 14:52 - 08/31/16 04:36 Intake Total 656 ml 603 ml 5953 ml Output Total 550 ml 1100 ml Balance 656 ml 53 ml 4853 ml Intake Oral 656 ml 100 ml 1856 ml IV Total 503 ml 4097 ml Output Urine Total 550 ml 650 ml Urine/Stool Mix 450 ml # Voids 4 5 11 # Bowel Movements 0 1 9 Exam Morning and afternoon exams deferred dramatically. Money exam demonstrated patient in no acute distress alert and oriented. Regular cardiac exam, clear lung holliday, and an abdomen which is only mildly tender. After the exam demonstrate a patient with pupils reacted to light and accommodation highly sedate, that any focal neurologic abnormalities such as facial asymmetries. She was able to move all 4 extremities though not a command but good strength is noted in arms and legs is patient had removed blanket and exit bed. Her breathing though loud did not appear overly labored, and no time did she demonstrate hypoxia or other concerns for inadequate oxygenation. IVs and Medications Medications Reviewed: Medications were reviewed in detail Lab and Diagnostics Result Diagram: 08/31/1639908/31/16399 Assessment & Plan 66 year old female past medical history most significant for metastatic pancreatic cancer presenting with refractory nausea and vomiting and exacerbation of pain likely related to a combination of metastatic disease and recent chemotherapy. Admitted for supportive care hydration further medical evaluation and treatment plan. 1. Metastatic pancreatic cancer - Initially Intravenous fluids provided emergency department and will be continued at 100 mL per hour as diet is advanced - Dr. Locke has been consulted and is following patient. - In addition Palliative care has become involved at this time for support with symptom management. Initially we had thought to delay discussion of hospice care while further evaluation of cancers progression was conducted, with evidence of metastasis to the brain based on CT findings it appears hospice route will be most prudent at this time. - Dr. Locke will be in in evening to discuss this issue further with family, palliative care continues follow as well. - Had been advancing diet with great success, reconsider with improved mentation. -We will continue intravenous fluids at 75 mL per hour following contrast study of abdomen. 2. Abdominal pain - As noted above this is likely related to metastatic disease process - Treatment with IV opiates as mentioned above has been very effective, pain good control. - Anticipate transition only oral therapies would be the goal prior to discharge. 3. Refractory nausea vomiting - With detection of central mass that appears cerebral swelling may certainly be contributing to this condition in addition to possible effects of chemotherapy and metastatic disease. - We will continue IVFs as noted above - Goal to transition to oral agents as tolerated. - Currently patient is receiving Zofran and Phenergan PRN in addition to steroid drip started on recommendation of Palliative care for further symptoms relief. - 5 there is additionally status post which may additionally be useful for cerebral swelling related to metastatic massive brain. 4. Seizure like activity with central brain mass - Clinically patient definitely appears to have had seizure earlier today likely a sequela of metastatic process to brain - She has been initiated on Keppra 1000 mg twice a day, and in addition will be provided dexamethasone to aid in reduction of swelling centrally to be prescribed by palliative care team. - We will start seizure precautions at this time 5. Hypertension - Progressive increase in BP with rehydration - Restarted home HCTZ but in the setting of IVFs to be used following contrast administration this may be inadequate. - Goal to discontinue IVFs with stable renal function in AM 6. Erosive gastritis - She was noted on endoscopy during previous admission beginning of July - P was prescribed Carafate, given nothing by mouth status will hold this medication. - Continue Protonix pump inhibitor IV. - Pt complaining of no active symptoms Disposition: Pending improvement mentation in addition to discharge planning, advancement of diet, control of pain and nausea Pain Evaluation: Adequate Pain Control GI Prophylaxis: Not indicated VTE Mechanical Devices: Intermittant Pneumatic CD Resuscitation Status: DNR/DNI:Do Not Resuscitate/Intubate Time spent 30 minutes Wong Rodriguez DO Aug 31, 2016 08:19
--- NOTE | 2016-08-31 09:44 | PCM.PALLBR ---
Palliative Care Recommendation Summary of palliative recommendations: -Symptom management (Pain/other): Nausea, vomiting and pain. 1. N&V: Reviewed effectiveness of AEF regimen with patient, which is much improved with the changes made yesterday. a. Continue with anti-emetic formula (AEF): dexamethasone 10mg, octreotide 1200mcg, and ondansetron 8mg. These will be in a volume of 120mL and run at 5mL/hour until 09/01/2016. b. Start olanzapine ODT 2.5mg at bedtime. c. Transition to oral components of AEF can be arranged prior to discharge. Discussed use of dexamethasone with Dr. Rodriguez in setting of newly discovered P[employer] metastasis. Patient is now receiving 10 mg of IV dexamethasone daily as part of the AEF. We will continue that but then probably transition to oral dexamethasone, 4 mg BID, at time of discharge. 2. Pain: Continue scheduled morphine 1mg IV every 4 hours and continue morphine 1-4mg IV Q4 PRN for breakthrough pain. Reviewed/compared ambulatory pain medications with current inpatient requirements. The patient currently has good pain control with 10mg of IV morphine over approximately the past 24 hours. A dose reduction of her home analgesic regimen might be considered at discharge - e.g.decrease morphine sulfate ER to 15mg twice daily and continue hydrocodone/acetaminophen 5-325mg as needed. Will, however review/adjust as needed prior to discharge PC team will continue to follow daily (M-F) to evaluate effectiveness of nausea and pain regimen -DPOA/Advanced Directives/POLST: 1. Code status: DNR/DNI 2. HCPOA is , John Aguirre, [phone]. 3. No prior POLST or AD paperwork. -Family/emotional support: Excellent family support. is John Aguirre, daughter is Carmen and brother is Garret. -Spiritual support: Not discussed Patient Goals: to be determined. Today, her goal continues to be better control of symptoms. Additional Medical Diagnoses with primary management by Hospitalist team include : 1. Metastatic pancreatic cancer 2. Abdominal pain 3. Refractory nausea vomiting 4. Erosive gastritis . Problems: End of Life Preferences DO NOT RESUSCITATE/DO NOT INTUBATE Goals of Care To be discussed Disposition Pending hospital course Resuscitation Status Resuscitation Status: DNR/DNI:Do Not Resuscitate/Intubate POLST Updates/Changes Previous POLST?: No . Pain: Mild Symptom management: Nausea, Pain Total time 45 minutes; >50% face to face with patient, providing counselling regarding plans and recommendations, and in care coordination with her medical teams. Attending Statement The patient was seen and examined together with Dr. Payne on 08/31/16 and I agree with the history, exam and plan as outlined in the note above. Palliative Brief Note Date of Service Aug 31, 2016 . Rounded on patient today. Prior to visiting, the records in the EMR were reviewed in detail and patient discussed with bedside nurse. No overnight events reported. The patient reports significant improvement with her nausea with the changes made to the anti-emetic formula. Her pain is also better controlled with the scheduled morphine. CT scan of chest, abdomen and pelvis with contrast is scheduled for today, which will determine the patient's course. If there is evidence of disease progression then transition to palliative care will be considered otherwise patient will likely continue with chemotherapy. Patient has a good understanding of the overall plan. Patient had a period of unresponsiveness that prompted a code stroke at around noon. A CT brain was obtained in addition to the CT scan of chest, abdomen and pelvis. Reviewed CT of brain with radiologist- CT brain identified at least 2 lesions suggestive of metastatic disease. CT chest, abdomen and pelvis show findings consistent with progression of disease including increases in the size of the pancreatic tail mass with invasion of the splenic hilum and gastric wall. Also noted is progression of metastatic disease in the lungs, liver, doug hepatis and retroperitoneal lymph nodes, and bones. Given these findings Hospice will be contacted to set up likely meeting after findings reviewed with patient and her family by Dr. Locke later this evening. Exam: General: Patient lying comfortably in bed; No acute distress Cardiac: Regular without murmur/rub/gallop Lungs: Clear bilaterally Abdomen: Bowel tones present Neuro: Grossly neurologically intact Labs reviewed in detail. Rolf Payne DO Aug 31, 2016 09:44 Sanju Granados MD Aug 31, 2016 14:11
[2016-08-31] MEDS: Ondansetron 2 mg/mL 2 mL Inj IVPUSH PRN (10:40)
--- NOTE | 2016-08-31 10:44 | NUR ---
Nausea and contrast Patient is half done on contrast drink and reports nausea. PRN Anti emetic given as ordered. continue to monitor nausea. Per CT, Ct in the afternoon.
--- NOTE | 2016-08-31 12:07 | NUR ---
CT patient is back from CT.
[2016-08-31 12:38] LABS: Mean Corpuscular Hemoglobin 26.2 pg (27.0-35.0); Mean Corpuscular Volume 84.6 fL (81-100)
[2016-08-31 12:51] VITALS: BP 152/70; PULSE 60; RESP 18; O2SAT 100
[2016-08-31] MEDS: 0.9% Sodium Chloride 250 ML IV SCH (12:56)
--- NOTE | 2016-08-31 13:16 | NUR ---
Unresponsive episode Code stroke was called at 1220. Rapid response team record filled out. Blue team hospitalist at bed side. please refer to rapid response team record for interventions. CT head ordered and now patient is back from CT. Blue team hospitalist aware. family at bed side. patient resting with eyes closed with normal breathing. stable vital signs. continue to monitor.
--- NOTE | 2016-08-31 13:35 | DRSVH ---
PROCEDURE: CT CHEST, ABDOMEN AND PELVIS [facility] CONTRAST ([id number]) INDICATIONS: Tail of Pancreas cancer rule out progression TECHNIQUE: After the administration of oral and intravenous contrast, 5 mm thick sections acquired from the lung apices to the symphysis. 5 mm coronal and sagittal reformats were performed, with additional 7 mm c oronal MIP reformats through the lungs. For radiation dose reduction, the following was used: autom ated exposure control, adjustment of mA and/or kV according to patient size. COMPARISON: [facility], CT, CT ANGIO CHEST PE, 06/14/2016, 11:34. [facility] , CT, CT ABD PELVIS W CON, 07/27/2016, 16:44. Outside Film, CT, CT CHEST ABD PELVIS W CON, 06/03/2016, 13:34. FINDINGS: Image quality: Excellent. CHEST: Lungs and pleura: There is interval increase in size of a few scattered bilateral pulmonary nodules including a right middle lobe nodule measuring 5 mm on series 3 image 32 which had previously measure d 3 mm. 2 adjacent technical support representative right lower lobe nodules are also demonstrated on image 32 measuri ng up to 4 mm, slightly increased in size from 2 and 3 mm previously. A technical support representative left lower lo be nodule on image 35 measures up to 3 mm compared to 1-2 mm previously. In addition, there are also a few scattered small nodules which appear new from the prior study such as a small 2-3 mm nodule al imani the left major fissure on image 21. The findings are consistent with progression of metastatic d isease. There is linear atelectasis within the lung bases. No pleural effusions or pneumothorax. C entral and peripheral airways appear patent and normal in caliber. Mediastinum: Heart size is normal. No pericardial effusion. There is a left chest wall internal ju gular Port-A-Cath with the tip extending into the superior vena cava. No mediastinal or hilar adenop athy by size criteria. Thoracic aorta and central pulmonary arteries are normal in size. Esophagus is normal in caliber. No hiatal hernia. Chest wall: No axillary or supraclavicular adenopathy by size criteria. Thyroid gland demonstrates no discrete nodules. ABDOMEN: Solid organs: There is a large lobulated mass redemonstrated within the tail of the pancreas measuri ng approximately 6.5 x 5.9 cm in transverse dimension, slightly decreased from 6.8 x 6.0 cm on the pr ior study. There is extensive internal necrosis redemonstrated. The mass again demonstrates extensi on to the splenic hilum with probable invasion of hilar vessels. This includes encasement and appare nt occlusion of the splenic artery. There is also extension to the stomach anteriorly again noted wi th apparent gastric wall invasion. There is extension medially to the left adrenal gland which appea rs enlarged with an adjacent necrotic mass measuring up to 2.6 x 1.8 cm in transverse dimension, unch anged in size from the prior study. Numerous centrally necrotic mass lesions are again demonstrated throughout the liver. These include a large centrally necrotic mass in the posterior right hepatic lobe which is decreased in size measur ing approximately 6.9 x 5.3 cm in transverse dimension compared to approximately 7.1 x 5.6 cm previou sly. A technical support representative left hepatic lobe mass anteriorly measures up to 5.7 x 4.0 cm in transverse di mension compared to 5.4 x 3.2 cm previously. Another technical support representative right hepatic lobe mass inferior ly within segment V measures 3.9 x 2.8 cm increased from 3.6 x 2.4 cm previously. Findings are consi stent with overall progression of hepatic metastatic disease. There is heterogeneous enhancement of the spleen redemonstrated with multiple wedge-shaped areas of hyperattenuation consistent with spleni c infarcts. The spleen is decreased in size compared to the prior study. The kidneys demonstrate no hydronephrosis. Peritoneum and bowel: Small bowel loops demonstrate normal wall thickness and caliber. There is diff use colonic wall thickening most prominent within the distal ascending and transverse colon. There i s a small amount of free fluid in the pelvis. No free air. Nodes and vessels: There multiple enlarged doug hepatis lymph nodes including a large centrally nec rotic aortocaval node measuring up to 2.8 cm in short axis, increased from 2.4 cm previously. There also enlarged para-aortic retroperitoneal lymph nodes redemonstrated including a technical support representative left para-aortic node measuring up to 1.3 cm in short axis, increased from 1.1 cm previously. Aorta and i nferior vena cava are normal in size. Miscellaneous: No ventral hernias. PELVIS: Genitourinary: Bladder wall thickness is normal. Miscellaneous: No inguinal hernias or adenopathy. Bones: There is numerous lytic lesions demonstrated throughout the visualized osseous structures incl uding the ribs, spine, and bony pelvis. These appear similar to slightly increased in size compared to the prior study and include a technical support representative lesion measuring 1.6 x 1.7 cm within the L4 vertebral body slightly increased from 1.6 x 1.5 cm previously. No acute compression fractures. IMPRESSION: 1. Findings consistent with interval progression of disease. These include increase in size of the pancreatic tail mass with invasion of the splenic hilum and gastric wall redemonstrated. There is al so progression of metastatic disease in the lungs, liver, doug hepatis and retroperitoneal lymph nod es, and bones. 2. Diffuse colonic wall thickening most prominent within the transverse colon is nonspecific and sug gestive of an infectious or inflammatory colitis. Dictated by: All Walton M.D. on 08/31/2016 at 12:15 Approved by: All Walton M.D. on 08/31/2016 at 13:33
--- NOTE | 2016-08-31 13:41 | DRSVH ---
PROCEDURE: CT BRAIN WITHOUT CONTRAST ([id number]) INDICATIONS: seizure TECHNIQUE: Noncontrast 4.5 mm thick angled axial sections acquired from the foramen magnum to the vertex, with c oronal reformats. COMPARISON: None. FINDINGS: Image quality: Excellent. CSF spaces: Basal cisterns are patent. No extra-axial fluid collections. The ventricles are symmet yessi in size and shape. Brain: There is a 1.9 cm hypodense mass demonstrating peripheral enhancement in the left inferior ce rebellar hemisphere, highly suspicious for neoplasm. No intracranial bleeds. There is cerebral volum e loss for age, with resultant ventricular and sulcal prominence. There are periventricular and deep white matter chronic small vessel ischemic changes. There is intracranial internal carotid artery a therosclerosis. Skull and face: Calvarium and visualized facial bones appear intact, without suspicious lesions. Sinuses: Visualized sinuses and mastoids are clear. IMPRESSION: A 1.9 cm ring-enhancing mass within the inferior right cerebellar hemisphere, highly susp icious for neoplasm, most likely intracranial metastasis in this patient with pancreatic cancer. Cent ral lucency within the mass is likely secondary to tumor necrosis. A less likely diagnostic possibili ty is an intracranial abscess. The result was discussed with Dr. Rodriguez prior to dictation. Dictated by: Harinder Puri M.D. on 08/31/2016 at 13:32 Approved by: Harinder Puri M.D. on 08/31/2016 at 13:39
[2016-08-31] MEDS ORDERED: 0.9% Sodium Chloride 1,000 ML IV SCH (14:00)
--- NOTE | 2016-08-31 14:00 | NUR ---
Palliative care note D/A: Rapid response called this afternoon on pt, found to be seizing. CT brain shows mets. Dr. Granados also indicates that CT pelvis, ordered by Dr. Locke also shows cancer progression. Dr. Locke has not spoken to pt or her family yet about this and probably most likely will come over this afternoon or evening. Plan has been if disease has progressed, to have discussion about hospice. Phone call to Holly/Lexie CRUZ, betina and have left msg recommending that [facility] info visit be set up for tomorrow. Dr. Granados notes that this will allow pt to get home as soon as possible to enjoy her time with her family. P: Palliative care to follow. Hawa PITTS, CCM
[2016-08-31] MEDS ORDERED: Potassium Chloride Inj 30 MEQ in Dextrose 5% 500 ML IV ONE (14:45)
[2016-08-31] MEDS: [UNRECOGNIZED DRUG - OTHER] IV SCH (15:25)
[2016-08-31] MEDS: DEXAMETHASONE IV SCH (15:25)
[2016-08-31] MEDS: ONDANSETRON IV SCH (15:25)
[2016-08-31] MEDS: OCTREOTIDE IV SCH (15:25)
[2016-08-31 16:40] VITALS: BP 163/84; PULSE 89; RESP 18; O2SAT 96
--- NOTE | 2016-08-31 17:19 | NUR ---
Oncology Dr. Fry at bed side and speaking to family. No sign and symptoms of pain noted. patient resting quietly with normal breathing. Seizure precautions initiated per orders.
--- NOTE | 2016-08-31 18:28 | NUR ---
mentation Patient resting quietly with eyes closed and normal breathing. patient awakens to the voice and clear speech with few words. patient refused dinner and states," i am not hungry." at bed side. no further seizure like activity noted. no tremors noted. Reposition, check and change every 2 hours. Blue team doctor speaking to the at this time. no sign and symptoms of pain noted. no signs of respiratory distress noted. Notified Blue team hospitalist r/t elevated systolic and if swallow evaluation is needed. hospitalist aware and no new orders received. Continue to monitor.
--- NOTE | 2016-08-31 20:20 | CCS NOTE ---
[facility] [address] [address] MEDICAL ONCOLOGY OFFICE NOTE PATIENT: ELLYN DOUGLAS : 1950 MR#: [id number] DATE: 08/28/2016 JOB ID: [id number] DATE: 08/31/2016 The patient had an episode of seizure-like activity today witnessed by the daughter and rapid response team was contacted and the patient has been started on Keppra. A CT of the brain without contrast was performed around noon which described a 1.9 cm ring-enhancing mass in the inferior right cerebellar hemisphere highly suspicious for neoplasm. CT scan of the chest, abdomen, and pelvis that I had requested yesterday with contrast was performed this morning, showing compared to the scan of July 27 which I personally reviewed, a small degree of progression in both the liver lesions as well as the size of the tail of the pancreas lesion. LABORATORIES: Show a white count of 9.7, hemoglobin 10.7, platelets 316. Chemistry shows low potassium 2.8, creatinine normalized. LFTs normal. I had a family conference this evening with the patient's , daughter and the patient herself. She was quite sedated as a side effect of medication. Her white cells are stable. Abdomen nontender. O2 sat 96%. 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 Unfortunately, after aggressive combination chemotherapy that she has received with 5-FU, irinotecan, and oxaliplatin combined with long-acting octreotide for three cycles, we are seeing on the current CAT scan within one month interval no improvement of disease, in fact slight increase in the size of some of the mass lesions. Therefore, she seemed to have a highly aggressive chemo-refractory malignancy and given the declining functional status, I do not believe that further anticancer chemotherapy will have any meaningful impact in her outcome or survival. I had a good conversation with the family discussing this issue and recommended to discontinue chemotherapy and focus on palliative care and gradual transition to hospice. However, the patient had seizure-like activity today and a noncontrast CT of the brain suggested a lesion in the cerebellum. CT scan is very insensitive for evaluation of brain metastases. I think if she truly has brain metastases for palliative reasons she should receive whole brain radiation to control headaches, nausea and other related symptoms in her remaining time. Therefore, I am going to order an MRI of the brain for tomorrow and if presence of brain metastases is confirmed, a brief course of whole-brain radiation that can stretch over one to maximum of two weeks can be contemplated before enrollment into hospice to control nausea, vomiting, headache and seizure issues. A radiation consult could be obtained while she is in the hospital after the MRI for simulation and initiation of treatment in the next few days.
[2016-08-31 20:49] VITALS: BP 174/81; PULSE 77; RESP 18; O2SAT 100
[2016-08-31] MEDS: levETIRAcetam Inj 1,000 MG in 0.9% Sodium Chloride 100 ML IV SCH (21:05)
[2016-08-31] MEDS: OLANZapine Zydis ODT 5 mg Tablet PO SCH (21:06)
[2016-08-31 22:23] VITALS: BP 177/73
--- NOTE | 2016-09-01 05:00 | NUR ---
Fall Patient was found down at VS assessment BA alarm was sounding but not overhead as bed not connected with wall notable contusion leah forehead approx 3x2 inch, no neuro change noted ,VSDebi MD notified stat head and spine CT ordered
--- NOTE | 2016-09-01 05:30 | NUR ---
Head CT off floor for head/spine CT Addendum: 09/01/16 at 0613 by GARRISON ESTRADA RN Head CT result back no changes other than front scalp hematoma
[2016-09-01 06:06] LABS: BASOPHILS % (AUTO) 0 % (0-3); EOSINOPHILS % (AUTO) 0 % (0-5); MONOCYTES % (AUTO) 9.8 % (4-12); Mean Corpuscular Hemoglobin 26.3 pg (27.0-35.0); Mean Corpuscular Volume 83.8 fL (81-100); NEUTROPHILS % (AUTO) 72.1 % (40-74); Platelet Count 215 bil/L (150-400)
[2016-09-01 06:29] LABS: Magnesium 1.4 mg/dL (1.6-2.6)
--- NOTE | 2016-09-01 07:58 | NUR ---
Late entry for 08/31/2016 - profile stitching machine operatorcase management director note: Met with at patient's room on [facility] room 3022. Patient had a CT Scan which showed Mets to the brain. After the CT Scan patient apparently had a seizure. Patient was unable to speak with me at this time because she was sleeping evidenced by her eyes closed/breathing and not responding to answers. Family at this time stated they had no care needs at this time. Update provided to SHELIA Rodriguez for Dr. Locke. Will continue to follow and provide assistance as needed. Juana Gonzalez, RN, OCN profile stitching machine operatorcertified tumor registrar
--- NOTE | 2016-09-01 08:04 | DRSVH ---
PROCEDURE: CT BRAIN WITHOUT CONTRAST ([id number]) INDICATIONS: fall out of bed TECHNIQUE: Noncontrast 4.5 mm thick angled axial sections acquired from the foramen magnum to the vertex, with c oronal reformats. COMPARISON: [facility], CT, CT CHEST ABD PELVIS W CON, 08/31/2016, 11:50. [facility], CT, CT BRAIN WO CON, 08/31/2016, 13:00. FINDINGS: Image quality: Excellent. CSF spaces: Basal cisterns are patent. No extra-axial fluid collections. The ventricles are symmet yessi in size and shape. Brain: There is a 1.5 cm mass in the right inferior cerebellum, as seen on last exam. No intracrania l bleeds or masses. There is cerebral volume loss for age, with resultant ventricular and sulcal pro minence. There are periventricular and deep white matter chronic small vessel ischemic changes. The re is intracranial internal carotid artery atherosclerosis. Skull and face: Calvarium and visualized facial bones appear intact, without suspicious lesions. Th ere is a right frontal subscalp hematoma. Sinuses: Visualized sinuses and mastoids are clear. IMPRESSION: 1. A 1.5 cm mass in the right inferior cerebellum. No acute intracranial abnormalities. 2. Cerebral volume loss and chronic microvascular ischemic changes. 3. Right frontal subscalp hematoma. No significant discrepancy with the shift stacker radiology preliminary report. Dictated by: Harinder Puri M.D. on 09/01/2016 at 8:00 Approved by: Harinder Puri M.D. on 09/01/2016 at 8:03
--- NOTE | 2016-09-01 08:05 | DRSVH ---
PROCEDURE: CT CERVICAL SPINE WITHOUT CONTRAST ([id number]) INDICATIONS: fall out of bed TECHNIQUE: Noncontrast 3 mm thick sections acquired from the skull base to the T4 level. Sagittal and coronal r eformats were then constructed. For radiation dose reduction, the following was used: automated exp osure control, adjustment of mA and/or kV according to patient size. COMPARISON: None. FINDINGS: Image quality: Excellent. Bones: No fractures or dislocations. Visualized superior ribs are intact. Soft tissues: Prevertebral soft tissues are normal in thickness. No paravertebral hematomas. No ap ical pneumothoraces. IMPRESSION: No cervical spine fractures. Dictated by: Harinder Puri M.D. on 09/01/2016 at 8:03 Approved by: Harinder Puri M.D. on 09/01/2016 at 8:03
[2016-09-01] MEDS ORDERED: Magnesium Sulf 2 Gm/50mL Water 2 GM in IV Premix 1 EACH IV ONE (08:15)
[2016-09-01] MEDS: Potassium Chloride 20 mEq SR Tablet PO SCH ×3 (08:30→20:10)
[2016-09-01] MEDS ORDERED: Magnesium Sulf 4 Gm/100 mL H2O 4 GM in IV Premix 1 EACH IV ONE (09:15)
[2016-09-01] MEDS: Pantoprazole 4 mg/mL 10 mL Inj IVPUSH SCH (10:15)
[2016-09-01] MEDS: 0.9% NaCl + KCl 20 mEq/L 1,000 ML IV SCH (10:15)
[2016-09-01] MEDS: levETIRAcetam Inj 1,000 MG in 0.9% Sodium Chloride 100 ML IV SCH ×2 (10:24→22:00)
--- NOTE | 2016-09-01 11:50 | NUR ---
Pt off floor for MRI Premedicated for pain, SL.
[2016-09-01 12:50] VITALS: BP 162/83; PULSE 71; RESP 16; O2SAT 97
[2016-09-01] MEDS: 0.9% Sodium Chloride 250 ML IV SCH (12:56)
--- NOTE | 2016-09-01 13:14 | DRSVH ---
PROCEDURE: MRI SEIZURE BRAIN WITH AND WITHOUT CONTRAST ([id number]) INDICATIONS: SEIZURE EPISODE TECHNIQUE: Noncontrast axial T1 spin echo, axial T2 fast spin echo, sagittal and axial FLAIR, axial gradient ech o, axial diffusion and ADC, coronal thin-slice T2 FSE through the brain. Optional contrast, followed by axial and coronal 3D VIBE or T1 spin fat saturation sequences through the brain. COMPARISON: [facility], CT, CT CHEST ABD PELVIS W CON, 08/31/2016, 11:50. [facility], CT, CT ABD PELVIS W CON, 07/27/2016, 16:44. [facility], CT, CT BRAIN WO CON, 10/2016, 5:33. [facility], CT, CT BRAIN WO CON, 08/31/2016, 13:00. FINDINGS: Image quality: Excellent. CSF spaces: Ventricles are normal in size and shape. Basal cisterns are patent. No extra-axial flu id collections. Brain: There is a 1.5 x 1.6 cm cystic mass in the right inferior cerebellum demonstrating peripheral ring enhancement. There is mild vasogenic edema surrounding the lesion. There are multiple foci of T2/FLAIR hyperintensity involving the posterior parietal lobe and occipita l lobe bilaterally along the white hamilton interface. No mass effect or midline shift. There is a single, small focus of susceptibility artifact on gradient echo image in the left parietal lobe just posterior to the left lateral ventricle. No associated abnormal intracranial enhancement. There is mild cerebral volume loss. Mild periventricular white matter chronic small vessel ischemic changes are present. Diffusion weighted images demonstrate a few foci of hyperintensity with no definitive correlates on A DC map, most likely caused by T2 shine through. Brainstem appear normal. Normal intravascular flow voids are present. The hippocampal regions appea r normal and symmetric in morphology. Skull and face: Calvarial marrow signal is normal. Orbits appear normal. Sinuses: Sinuses and mastoids are clear. IMPRESSION: 1. A 1.5 x 1.6 cm cystic mass in the right inferior cerebellum with ring enhancement, suspicious for a metastatic lesion. A differential diagnosis is a parasitic cyst. There is mild vasogenic edema but no mass effect or midline shift. 2. There are multiple foci of T2/FLAIR hyperintensity in the posterior parietal lobe and occipital lo be bilaterally along the hamilton-white interface. 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 Potential causes for the finding include PRES associated with chemother apy, hypertension and autoimmune disease such as lupus erythematosus. 3. A single small focus of susceptibility artifact in the left parietal lobe. There is no correspondi ng findings on recent CTs. Differential diagnosis include small focus of hemosiderin deposition or ca lcification. Dictated by: Harinder Puri M.D. on 09/01/2016 at 12:56 Transcribed by: REINIER on 09/01/2016 at 13:14 Approved by: Harinder Puri M.D. on 09/01/2016 at 13:23
--- NOTE | 2016-09-01 13:50 | NUR ---
Social Work: Brief Note PROCESSING INSPECTOR acknowledges hospice info visit set up order from . PROCESSING INSPECTOR requested hospice info visit for pt. PROCESSING INSPECTOR will continue to follow. NANCY Tejada
--- NOTE | 2016-09-01 13:52 | NUR ---
ASHOK Signed @ [id number]
--- NOTE | 2016-09-01 14:50 | PCM.PALLBR ---
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 Long discussion between Dr. Locke and patient and her family last evening. He indicated no role for further chemotherapy. MRI ordered to further assess the intracerebral mass- and Dr. Locke is considering palliative XRT of brain. Will await his recommendations after he reviews MRI. Tentatively planning on hospice info visit in the coming days- though if patient proceeds with XRT hospice will not activate until she completes that therapy. Summary of palliative recommendations: -Symptom management (Pain/other): Nausea, vomiting and pain. 1. N&V: a. AEF (antiemesis formula) via IV will be discontinued this afternoon. b. Continue olanzapine ODT 2.5mg at bedtime. c. Start dexamethasone 4 mg PO BID this evening d. Ondansetron IV prn 2. Pain: Her need for IV morphine has been limited. Her med reconciliation indicates that she was taking MS ER 30 mg twice daily prior to admission- a significantly higher dose of medication than she has been requiring lately. At this time, I am going to discontinue her scheduled IV morphine and will restart MS ER though at decreased dose compared with admission- 15 mg BID- and monitor/ adjust as needed. PC team will continue to follow daily (M-F) to evaluate effectiveness of nausea and pain regimen -DPOA/Advanced Directives/POLST: 1. Code status: DNR/DNI 2. HCPOA is , John Aguirre, [phone]. 3. No prior POLST or AD paperwork. Will plan on assisting in completing new POLST prior to discharge that reflects her wishes/plans at that time -Family/emotional support: Excellent family support. is John Aguirre, daughter is Carmen and brother is Garret. -Spiritual support: Not discussed Patient Goals: to be determined. Today, her goal continues to be better control of symptoms. Additional Medical Diagnoses with primary management by Hospitalist team include : 1. Metastatic pancreatic cancer 2. Abdominal pain 3. Refractory nausea vomiting 4. Erosive gastritis . Problems: End of Life Preferences DO NOT RESUSCITATE/DO NOT INTUBATE Goals of Care To be discussed Disposition Pending hospital course Resuscitation Status Resuscitation Status: DNR/DNI:Do Not Resuscitate/Intubate POLST Updates/Changes Previous POLST?: No . Pain: None Symptom management: Nausea, Pain Total time 40 minutes; >50% face to face with patient and family, providing counselling regarding plans and recommendations, and in care coordination with his medical teams. Palliative Brief Note Date of Service Sep 01, 2016 . Returned to reevaluate patient. She was sleeping but I spoke with her at bedside. Prior to visiting, reviewed events of the evening and this morning. Spoke with her bedside nurse. Patient's notes that her nausea continues to be very well controlled- essentially no ongoing nausea and no further emesis. Pain well controlled as well. Did not examine the patient today as she was resting and I did not want to disturb her. Sanju Granados MD Sep 01, 2016 14:50
--- NOTE | 2016-09-01 14:52 | NUR ---
Palliative care note D/A: Phone call from Corrina at [facility] to inquire about POLST for pt. POLST not completed. Discussed with Dr. Granados who indicates that team is awaiting word from Dr. Locke regarding MRI brain results. It decision is reached to not have further work up of pt brain, then POLST will be completed and medical team will work towards dc. Corrina is aware. P: Palliative care to follow. Hawa PITTS, CCM
--- NOTE | 2016-09-01 16:13 | NUR ---
NUTRITION FOLLOW-UP: ASSESS: 66 YO F admitted for refractory nausea/vomiting and abd. pain. Pt with history of pancreatic CA, metastasis to liver, currently undergoing chemo. Per notes, no further chemo planned. Pt with new findings of probable intracerebral metastatic disease, MRI today. If confirmed, pt my undergo palliative radiation and then possibly transition to hospice. PMHX: Pancreatic cancer with metastatic disease, HTN, depression, anxiety. DIET: Full Liquids, Pt refusing meals now x 4 days. LABS: Reviewed. K+ 3.1, Glu 139, Mg 1.4, Alb 3.2. MEDS: Reviewed. Folfirinox, Medical Marijuana GI: BM x 4 (08/31) WEIGHT: 54.7 kg. previous wt (06/08/16) 68.0 kg. EST. NEEDS: CANCER Kcal: 8589-4496 (30-40 kcals/kg BW) Pro: 80-110 g (1.5-2.0 g/kg BW) NUTRITION DIAGNOSIS: (1) Inadequate oral intake related to decreased appetite as evidenced by severe weight loss of 19.6% and reported poor po intake x 4 days as well as prior to admit--PERSISTS. INTERVENTION: (1) Continue to send mighty shakes on all trays. (2) Pt educated on high calorie / high protein intake on prior admit. MONITOR/EVALUATE: PO intake, labs, nutritional status, POC. Follow per high nutritional risk guidelines.
--- NOTE | 2016-09-01 19:51 | NUR ---
Mentation/Safety Pt bed alarm on, seizure pads in place, and close monitoring with family or staff for safety. Pt had no close falls during day, staff was alerted on on had for all needs. During the later part of the day shift, pt was helped up to BR as 1PA. Pt a little weak but able to walk fine. After finishing in , pt did not use call light and started walking out of bathroom by self. Pt was quickly assisted back into bed. Bed alarm was placed back on and pt was instructed to use call light and wait for help when ambulating. No near falls happened and NOC shift informed. Addendum: 09/01/16 at 1957 by JUAN SAL RN Mentation Pt mentation seemed to fluctuate during the day. Able to be reoriented but at times pt did exhibit some minor confusion.
[2016-09-01] MEDS: Morphine ER 15 mg (MS Contin) Tablet PO SCH (20:11)
[2016-09-01 21:11] VITALS: BP 144/76; PULSE 68; RESP 16; O2SAT 99
[2016-09-01] MEDS: OLANZapine Zydis ODT 5 mg Tablet PO SCH (21:59)
--- NOTE | 2016-09-01 23:55 | PCM.PNMED ---
Subjective Date of Service Sep 01, 2016 Subjective Patient is poorly responsive. However, she is arousable with some stimuli. Exam Vital Signs Vital Sign - Last Date Time Temp Pulse Resp B/P Pulse Ox O2 Delivery O2 Flow Rate FiO2 09/01/16 21:11 36.4 68 16 144/76 99 Room Air 08/31/16 12:51 2.00 Intake and Output 08/31/16 08/31/16 09/01/16 Cumulative From/Thru 15:00 23:00 07:00 08/28/16 14:52 - 09/01/16 06:35 Intake Total 628 ml 0 ml 6581 ml Output Total 200 ml 1300 ml Balance 428 ml 0 ml 5281 ml Intake Oral 350 ml 0 ml 2206 ml IV Total 278 ml 4375 ml Output Urine Total 200 ml 850 ml Urine/Stool Mix 450 ml # Voids 3 3 17 # Bowel Movements 3 12 Exam General: Patient is in no apparent distress and is quite somnolent. However, she is arousable. HEENT: Head is significant for ecchymosis in the right periorbital area. There does not appear to be any involvement of the right eyeball. Eyes: Pupils are equally round and reactive to light and accommodation. Extraocular muscles are intact. Sclera are white, anicteric. Subconjunctival mucosa is pink. Ears and nose are unremarkable. Oropharynx: There is no mucosal lesions, there is no thrush, there is no pharyngitis. Neck: Is supple, there are no nodes, or masses or tenderness. Chest: Is clear to auscultation and percussion. There are a few bibasilar crackles. Heart: Rate, rhythm is regular. There is no new murmur, rub or gallop. Abdomen: Good bowel sounds are present. Abdomen is soft, nontender, no organomegaly or masses were appreciated. Extremities: Are symmetrical and well perfused. There is no edema, there is no cellulitis, no rash. Neurologic: There are no focal neurological deficits. Cranial nerves II through XII are intact. There are no sensory or motor deficits. Psychiatric: Patients mood is calm and shows no sign of agitation. Genital: Deferred Rectal: Deferred Lab and Diagnostics Result Diagram: 09/01/16 0540 09/01/16 0540 X-Rays, CTs and MRIs PROCEDURE: CT BRAIN WITHOUT CONTRAST ([id number]) INDICATIONS: fall out of bed TECHNIQUE: Noncontrast 4.5 mm thick angled axial sections acquired from the foramen magnum to the vertex, with coronal reformats. COMPARISON: [facility], CT, CT CHEST ABD PELVIS W CON, 08/31/2016, 11:50. [facility], CT, CT BRAIN WO CON, 08/31/2016, 13:00. FINDINGS: Image quality: Excellent. CSF spaces: Basal cisterns are patent. No extra-axial fluid collections. The ventricles are symmetric in size and shape. Brain: There is a 1.5 cm mass in the right inferior cerebellum, as seen on last exam. No intracranial bleeds or masses. There is cerebral volume loss for age, with resultant ventricular and sulcal prominence. There are periventricular and deep white matter chronic small vessel ischemic changes. There is intracranial internal carotid artery atherosclerosis. Skull and face: Calvarium and visualized facial bones appear intact, without suspicious lesions. There is a right frontal subscalp hematoma. Sinuses: Visualized sinuses and mastoids are clear. IMPRESSION: 1. A 1.5 cm mass in the right inferior cerebellum. No acute intracranial abnormalities. 2. Cerebral volume loss and chronic microvascular ischemic changes. 3. Right frontal subscalp hematoma. No significant discrepancy with the supervisor [employer] radiology preliminary report. Dictated by: Harinder Puri M.D. on 09/01/2016 at 8:00 Approved by: Harinder Puri M.D. on 09/01/2016 at 8:03 PROCEDURE: MRI SEIZURE BRAIN WITH AND WITHOUT CONTRAST ([id number]) INDICATIONS: SEIZURE EPISODE TECHNIQUE: Noncontrast axial T1 spin echo, axial T2 fast spin echo, sagittal and axial FLAIR, axial gradient echo, axial diffusion and ADC, coronal thin-slice T2 FSE through the brain. Optional contrast, followed by axial and coronal 3D VIBE or T1 spin fat saturation sequences through the brain. COMPARISON: [facility], CT, CT CHEST ABD PELVIS W CON, 08/31/2016, 11:50. [facility], CT, CT ABD PELVIS W CON, 07/27/2016, 16:44. [facility], CT, CT BRAIN WO CON, 09/01/2016, 5:33. [facility], CT, CT BRAIN WO CON, 08/31/2016, 13:00. FINDINGS: Image quality: Excellent. CSF spaces: Ventricles are normal in size and shape. Basal cisterns are patent. No extra-axial fluid collections. Brain: There is a 1.5 x 1.6 cm cystic mass in the right inferior cerebellum demonstrating peripheral ring enhancement. There is mild vasogenic edema surrounding the lesion. There are multiple foci of T2/FLAIR hyperintensity involving the posterior parietal lobe and occipital lobe bilaterally along the white hamilton interface. No mass effect or midline shift. There is a single, small focus of susceptibility artifact on gradient echo image in the left parietal lobe just posterior to the left lateral ventricle. No associated abnormal intracranial enhancement. There is mild cerebral volume loss. Mild periventricular white matter chronic small vessel ischemic changes are present. Diffusion weighted images demonstrate a few foci of hyperintensity with no definitive correlates on ADC map, most likely caused by T2 shine through. Brainstem appear normal. Normal intravascular flow voids are present. The hippocampal regions appear normal and symmetric in morphology. Skull and face: Calvarial marrow signal is normal. Orbits appear normal. Sinuses: Sinuses and mastoids are clear. IMPRESSION: 1. A 1.5 x 1.6 cm cystic mass in the right inferior cerebellum with ring enhancement, suspicious for a metastatic lesion. A differential diagnosis is a parasitic cyst. There is mild vasogenic edema but no mass effect or midline shift. 2. There are multiple foci of T2/FLAIR hyperintensity in the posterior parietal lobe and occipital lobe bilaterally along the hamilton-white interface. 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 Potential causes for the finding include PRES associated with chemotherapy, hypertension and autoimmune disease such as lupus erythematosus. 3. A single small focus of susceptibility artifact in the left parietal lobe. There is no corresponding findings on recent CTs. Differential diagnosis include small focus of hemosiderin deposition or calcification. Dictated by: Harinder Puri M.D. on 09/01/2016 at 12:56 Transcribed by: REINIER on 09/01/2016 at 13:14 Approved by: Harinder Puri M.D. on 09/01/2016 at 13:23 Assessment & Plan 66 year old female past medical history most significant for metastatic pancreatic cancer presenting with refractory nausea and vomiting and exacerbation of pain likely related to a combination of metastatic disease and recent chemotherapy. Admitted for supportive care hydration further medical evaluation and treatment plan. 1. Metastatic pancreatic cancer - Initially Intravenous fluids provided emergency department and will be continued. - Dr. Locke has been consulted and is following patient. - In addition Palliative care has become involved at this time for support with symptom management. - Dr. Locke will be in in evening to discuss this issue further with family, palliative care continues follow as well. He would like to try radiation therapy for palliation of patient's symptoms. I discussed this with the patient 's today and he agrees. - We can get hospice to do an interval visit for now to start hospice once her radiation therapy is complete. - Had been advancing diet with great success, reconsider with improved mentation. -We will continue intravenous fluids for now. 2. Abdominal pain - As noted above this is likely related to metastatic disease process - Treatment with IV opiates as mentioned above has been very effective, pain good control. - Anticipate transition only oral therapies would be the goal prior to discharge. 3. Refractory nausea vomiting - With detection of central mass that appears cerebral swelling may certainly be contributing to this condition in addition to possible effects of chemotherapy and metastatic disease. Plan for radiation therapy. - We will continue IVFs as noted above - Goal to transition to oral agents as tolerated. - Currently patient is receiving Zofran and Phenergan PRN in addition to steroid drip started on recommendation of Palliative care for further symptoms relief. 4. Seizure like activity with central brain mass - Clinically patient definitely appears to have had seizure on 08/31/2016 likely a sequela of metastatic process to brain - She has been initiated on Keppra 1000 mg twice a day, and in addition will be provided dexamethasone to aid in reduction of swelling centrally to be prescribed by palliative care team. - We will start seizure precautions at this time 5. Hypertension - Progressive increase in BP with rehydration - Restarted home HCTZ but in the setting of IVFs to be used following contrast administration this may be inadequate. - Goal to discontinue IVFs with stable renal function in AM 6. Erosive gastritis - She was noted on endoscopy during previous admission beginning of July - P was prescribed Carafate, given nothing by mouth status will hold this medication. - Continue Protonix pump inhibitor IV. - Pt complaining of no active symptoms Disposition: Pending improvement mentation in addition to discharge planning, advancement of diet, control of pain and nausea Pain Evaluation: Adequate Pain Control GI Prophylaxis: Not indicated VTE Mechanical Devices: Intermittant Pneumatic CD Resuscitation Status: DNR/DNI:Do Not Resuscitate/Intubate Rick Sarabia MD Sep 01, 2016 23:55
[2016-09-02] MEDS: 0.9% NaCl + KCl 20 mEq/L 1,000 ML IV SCH ×2 (00:18→13:54)
[2016-09-02 06:03] VITALS: BP 156/58; PULSE 79; RESP 16; O2SAT 98
[2016-09-02 06:07] LABS: BASOPHILS % (AUTO) 0 % (0-3); EOSINOPHILS % (AUTO) 0.2 % (0-5); MONOCYTES % (AUTO) 8.9 % (4-12); Mean Corpuscular Hemoglobin 26.3 pg (27.0-35.0); Mean Corpuscular Volume 84.8 fL (81-100); NEUTROPHILS % (AUTO) 62.8 % (40-74); Platelet Count 169 bil/L (150-400)
[2016-09-02 06:28] LABS: Magnesium 2.7 mg/dL (1.6-2.6)
[2016-09-02] MEDS: Potassium Chloride 20 mEq SR Tablet PO SCH ×2 (08:30→20:22)
[2016-09-02] MEDS: Pantoprazole 4 mg/mL 10 mL Inj IVPUSH SCH (08:31)
[2016-09-02] MEDS: Morphine ER 15 mg (MS Contin) Tablet PO SCH ×2 (08:31→20:21)
[2016-09-02] MEDS: levETIRAcetam Inj 1,000 MG in 0.9% Sodium Chloride 100 ML IV SCH ×2 (08:33→20:22)
--- NOTE | 2016-09-02 11:01 | NUR ---
NUTRITION FOLLOW-UP: ASSESS: 66 YO F admitted for refractory nausea/vomiting and abd. pain. Pt with history of pancreatic CA, metastasis to liver. Per notes, no further chemo planned. Pt may undergo palliative radiation and then possibly transition to hospice. Oncology and palliative care are following, Pt has lost ~13kg x3 months (19.5% wt loss= significant). Pt reported that she is a picky eater and she cant tolerate much solid food but her n/v is improving. She tends to just drink liquids but was able to tolerate some oatmeal this am. She does not like Ensure because it is too thick and sweet. Pt reported that at home she drinks carnation instant breakfast. Pt reported that she had not tried the mighty shake yet but was willing to try it while RD was visiting with pt. After trying the drink she reported that she liked it but is was a bit sweet. It was suggested that she dilute the drink with whole milk to decrease the sweetness. Pt expressed that she would do that. Pt had family in the room and they were encouraged to bring in food from home that pt likes and to help encourage pt drink the mighty shakes. PMHX: Pancreatic cancer with metastatic disease, HTN, depression, anxiety. DIET: Full Liquids, PO sips LABS: Reviewed. Glu 118, Ca 7.9, Mg 2.7, alkphos 175, alb 3.0 MEDS: Reviewed. Folfirinox, Medical Marijuana, senna GI: BM x 2 (09/01) WEIGHT: 54.7 kg., BMI 22.1kg/m2, previous wt (06/08/16) 68.0 kg.= 19.5% wt loss x 3 months=significant EST. NEEDS: CANCER Kcal: 1712-7858 (30-40 kcals/kg BW) Pro: 80-110 g (1.5-2.0 g/kg BW) NUTRITION DIAGNOSIS: (1) Inadequate oral intake related to decreased appetite as evidenced by severe weight loss of 19.5% and reported poor po intake x 4 days as well as prior to admit--PERSISTS. (2) Severe pro/kcal malnutrition related to chronic disease as evidence by 19.5% wt loss x3 months and poor PO intake for greater than 1 month due to persistent n/v INTERVENTION: (1) Continue to send mighty shakes on all trays. (2) Family was encouraged to bring in food that the pt likes and discussed diluting the mighty shake with whole milk to make it less sweet. MONITOR/EVALUATE: wt, GI, PO intake, labs, nutritional status, POC. Follow per high nutritional risk guidelines.
[2016-09-02] MEDS: 0.9% Sodium Chloride 250 ML IV SCH ×2 (12:56→20:27)
[2016-09-02 13:31] VITALS: BP 155/82; PULSE 62; RESP 16; O2SAT 98
--- NOTE | 2016-09-02 13:41 | PCM.PALLBR ---
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 Dr. Granados discussed the case over the phone with Dr. Locke who recommends XRT of brain. Patient and family would like to proceed with XRT of brain. Dr. Granados spoke with Radiology-Oncology as well and they will see patient today with anticipated XRT of brain likely to begin next week. Hospice will not activate until patient has completed XRT. Dr. Granados returned later in the afternoon to speak further with the patient and her . Reviewed disposition plans, hospice, radiation therapy plans. We then discussed advance directive issues and completed a new POLST -Symptom management (Pain/other): Nausea, vomiting and pain. 1. N&V: a. Continue olanzapine ODT 2.5mg at bedtime. b. Continue dexamethasone 4 mg PO BID c. Ondansetron IV prn 2. Pain: Continue with MS ER 15mg BID that was started yesterday as this is controlling her pain well. Restart her hydrocodone/APAP 5/325, 1-2 tabs every 4 hours as needed for breakthrough pain. -DPOA/Advanced Directives/POLST: 1. Code status: DNR/DNI/comfort/antibiotics for comfort okay/no artificial nutrition 2. HCPOA is , John Aguirre, [phone]. 3. New POLST completed today-original and copy given to the patient's , copy left in chart and another in palliative office -Family/emotional support: Excellent family support. is John Aguirre, daughter is Carmen and brother is Garret. -Spiritual support: Not discussed Additional Medical Diagnoses with primary management by Hospitalist team include : 1. Metastatic pancreatic cancer 2. Abdominal pain 3. Refractory nausea vomiting 4. Erosive gastritis 5. New-onset seizure disorder, likely secondary to intracerebral metastasis . Problems: End of Life Preferences DO NOT RESUSCITATE/DO NOT INTUBATE Goals of Care Palliative whole brain XRT, then transition to hospice care at home Disposition Home with hospice Resuscitation Status Resuscitation Status: DNR/DNI:Do Not Resuscitate/Intubate POLST Updates/Changes Previous POLST?: No POLST Last Review Date: Sep 02, 2016 POLST Discussed with: Patient, Spouse/Other POLST Review Outcome: New Form Completed . Advanced Care Planning Address: POLST Pain: None Symptom management: Nausea, Pain Total time 60 minutes; >50% face to face with patient and family, providing counselling regarding plans and recommendations, and in care coordination with her medical teams. Of the above total time, 30 minutes spent reviewing advanced directive wishes and completing a new POLST with the patient and her copies to: Barney Murry MD Palliative Brief Note Date of Service Sep 02, 2016 . Rounded on patient today. Prior to visiting, the records in the EMR were reviewed in detail and patient discussed with bedside nurse. Dr. Granados discussed the case over the phone with Dr. Locke and the recommendation was that the patient may benefit from XRT of brain if she is lucid and mentation back to baseline. This morning the patient is accompanied at bedside by her family and friends. She reports feeling well without nausea and her pain is well controlled. She does express her desire to return home as soon as possible when medically safe to do so. Dr. Granados discussed with the patient and her family the conversation he had with Dr. Locke earlier in the day. Patient is interested in proceeding with XRT of brain and family supports this decision. Dr. Granados then discussed patient with Radiology Oncology who plan to see the patient today with anticipated XRT of brain to be begin early next week. Patient appears comfortable in bed. There is some visible swelling and ecchymosis of her right eye, but patient is otherwise in no acute distress. Rest of the examination deferred for patient comfort. Rolf Payne DO Sep 02, 2016 13:41 Sanju Granados MD Sep 02, 2016 15:52
[2016-09-02] MEDS ORDERED: HYDROcodone-APAP 5-325 mg Tablet PO PRN (15:30)
--- NOTE | 2016-09-02 15:59 | NUR ---
Social Work: Continued d/c planning Data: Pt is on day 5 of hospitalization. EMR reviewed, pt discussed in rounds. MD states that palliative radiation is being pursued and anticipated d/c date is unknown at this time. Hospice states they have pt on their list to set up an info visit with, but that they will do this likely the beginning of next week. STUDENT DEVELOPMENT SPECIALIST will continue to follow. Assessment: Pt with assistance at baseline from spouse. Plan: Pt will likely return home with spouse when medically stable, hospice info visit yet to be scheduled. STUDENT DEVELOPMENT SPECIALIST will continue to follow regarding palliative radiation plan and what this means for d/c planning. NANCY Tejada
--- NOTE | 2016-09-02 16:07 | NUR ---
Pain/mentation Patient reporting pain significately decreased to 1-/ this shift. Reports she is much more relaxed and comfortable. Patient mentation good. Patient alert and oriented x4, relaxed and visiting with family.
[2016-09-02] MEDS: OLANZapine Zydis ODT 5 mg Tablet PO SCH (20:33)
[2016-09-02 21:01] VITALS: BP 165/87; PULSE 68; RESP 16; O2SAT 97
--- NOTE | 2016-09-02 22:12 | CCS NOTE ---
[facility] [address] [address] MEDICAL ONCOLOGY OFFICE NOTE PATIENT: ELLYN DOUGLAS : 1950 MR#: [id number] DATE: 08/28/2016 JOB ID: [id number] DATE: 09/02/2016 SUBJECTIVE: The patient appears much more alert and communicative today. I have had several communications with the physicians involved, but was not able to see her until the end of the day today around 6 p.m. Her family had already left, but we had a good family conversation on Monday night. MRI of the brain noted as well as the patient's fall and resulting CT to rule out a hematoma. Brain MRI showed a 1.6 cm cystic mass in the right inferior cerebellum with peripheral ring enhancement and mild vasogenic edema, most likely metastatic disease from her malignancy. There was also some foci of FLAIR hyperintensity and enhancement in the occipital and parietal area along the hamilton and white matter interface suggestive for possible posterior irreversible encephalopathy syndrome. This is usually associated with hypertensive crisis or the drug Avastin which the patient is not receiving. Her blood pressure at times has been elevated, but not as severely. The highest level was 177/73 systolic. Her nausea is much better controlled. LAB STUDIES: Show a normal electrolyte panel and LFTs. Magnesium low at 2.7, albumin 3.0. Hemoglobin 8.3, otherwise stable. OBJECTIVE: On exam, she is very interactive and appears comfortable. Has a bruise on her right eye from the fall. Abdomen is soft and nontender. No edema. 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 We had discussed with the family on Monday evening these findings and suggested to discontinue further chemotherapy. The patient was very sedated, but when I saw her this afternoon, she was much improved in terms of mental status. The brain MRI was reviewed and I have discussed that both with Radiation Oncology as well as Dr. Granados earlier today. I do believe that it is worthwhile considering a brief course of palliative radiation to avoid future nausea, vomiting, headaches, and symptoms of increased intracranial pressure. After that, my recommendation would be to transition to hospice. I reviewed that with the patient and she seems to have an understanding of this and is comfortable with this decision. She is planned to be discharged home today with radiation evaluation on Monday. I will be seeing her then as an outpatient in the next week or so.
--- NOTE | 2016-09-02 23:16 | PCM.PNMED ---
Subjective Date of Service Sep 02, 2016 Subjective Patient is feeling much better today and is much more awake and alert. She knows normally conversive and is in good spirits. Exam Vital Signs Vital Sign - Last Date Time Temp Pulse Resp B/P Pulse Ox O2 Delivery O2 Flow Rate FiO2 09/02/16 21:01 36.4 68 16 165/87 97 Room Air 08/31/16 12:51 2.00 Intake and Output 09/01/16 09/01/16 09/02/16 Cumulative From/Thru 15:00 23:00 07:00 08/28/16 14:52 - 09/02/16 06:43 Intake Total 1337 ml 0 ml 7918 ml Output Total 300 ml 1600 ml Balance 1337 ml -300 ml 6318 ml Intake Oral 200 ml 0 ml 2406 ml IV Total 1137 ml 5512 ml Output Urine Total 300 ml 1150 ml Urine/Stool Mix 450 ml # Voids 3 20 # Bowel Movements 2 14 Exam General: Patient is much more awake and alert and conversant. She is in good spirits. HEENT: Head is significant for ecchymosis in the right periorbital area which has improved today. There does not appear to be any involvement of the right eyeball. Eyes: Pupils are equally round and reactive to light and accommodation. Extraocular muscles are intact. Sclera are white, anicteric. Subconjunctival mucosa is pink. Ears and nose are unremarkable. Oropharynx: There is no mucosal lesions, there is no thrush, there is no pharyngitis. Neck: Is supple, there are no nodes, or masses or tenderness. Chest: Is clear to auscultation and percussion. There are a few bibasilar crackles. Heart: Rate, rhythm is regular. There is no new murmur, rub or gallop. Abdomen: Good bowel sounds are present. Abdomen is soft, nontender, no organomegaly or masses were appreciated. Extremities: Are symmetrical and well perfused. There is no edema, there is no cellulitis, no rash. Neurologic: There are no focal neurological deficits. Cranial nerves II through XII are intact. There are no sensory or motor deficits. Psychiatric: Patients mood is calm and shows no sign of agitation. Genital: Deferred Rectal: Deferred Lab and Diagnostics Result Diagram: 09/02/16 0545 09/02/16 0545 X-Rays, CTs and MRIs PROCEDURE: CT BRAIN WITHOUT CONTRAST ([id number]) INDICATIONS: fall out of bed TECHNIQUE: Noncontrast 4.5 mm thick angled axial sections acquired from the foramen magnum to the vertex, with coronal reformats. COMPARISON: [facility], CT, CT CHEST ABD PELVIS W CON, 08/31/2016, 11:50. [facility], CT, CT BRAIN WO CON, 08/31/2016, 13:00. FINDINGS: Image quality: Excellent. CSF spaces: Basal cisterns are patent. No extra-axial fluid collections. The ventricles are symmetric in size and shape. Brain: There is a 1.5 cm mass in the right inferior cerebellum, as seen on last exam. No intracranial bleeds or masses. There is cerebral volume loss for age, with resultant ventricular and sulcal prominence. There are periventricular and deep white matter chronic small vessel ischemic changes. There is intracranial internal carotid artery atherosclerosis. Skull and face: Calvarium and visualized facial bones appear intact, without suspicious lesions. There is a right frontal subscalp hematoma. Sinuses: Visualized sinuses and mastoids are clear. IMPRESSION: 1. A 1.5 cm mass in the right inferior cerebellum. No acute intracranial abnormalities. 2. Cerebral volume loss and chronic microvascular ischemic changes. 3. Right frontal subscalp hematoma. 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 Dictated by: Harinder Puri M.D. on 09/01/2016 at 8:00 Approved by: Harinder Puri M.D. on 09/01/2016 at 8:03 PROCEDURE: MRI SEIZURE BRAIN WITH AND WITHOUT CONTRAST ([id number]) INDICATIONS: SEIZURE EPISODE TECHNIQUE: Noncontrast axial T1 spin echo, axial T2 fast spin echo, sagittal and axial FLAIR, axial gradient echo, axial diffusion and ADC, coronal thin-slice T2 FSE through the brain. Optional contrast, followed by axial and coronal 3D VIBE or T1 spin fat saturation sequences through the brain. COMPARISON: [facility], CT, CT CHEST ABD PELVIS W CON, 08/31/2016, 11:50. [facility], CT, CT ABD PELVIS W CON, 07/27/2016, 16:44. [facility], CT, CT BRAIN WO CON, 09/01/2016, 5:33. [facility], CT, CT BRAIN WO CON, 08/31/2016, 13:00. FINDINGS: Image quality: Excellent. CSF spaces: Ventricles are normal in size and shape. Basal cisterns are patent. No extra-axial fluid collections. Brain: There is a 1.5 x 1.6 cm cystic mass in the right inferior cerebellum demonstrating peripheral ring enhancement. There is mild vasogenic edema surrounding the lesion. There are multiple foci of T2/FLAIR hyperintensity involving the posterior parietal lobe and occipital lobe bilaterally along the white hamilton interface. No mass effect or midline shift. There is a single, small focus of susceptibility artifact on gradient echo image in the left parietal lobe just posterior to the left lateral ventricle. No associated abnormal intracranial enhancement. There is mild cerebral volume loss. Mild periventricular white matter chronic small vessel ischemic changes are present. Diffusion weighted images demonstrate a few foci of hyperintensity with no definitive correlates on ADC map, most likely caused by T2 shine through. Brainstem appear normal. Normal intravascular flow voids are present. The hippocampal regions appear normal and symmetric in morphology. Skull and face: Calvarial marrow signal is normal. Orbits appear normal. Sinuses: Sinuses and mastoids are clear. IMPRESSION: 1. A 1.5 x 1.6 cm cystic mass in the right inferior cerebellum with ring enhancement, suspicious for a metastatic lesion. A differential diagnosis is a parasitic cyst. There is mild vasogenic edema but no mass effect or midline shift. 2. There are multiple foci of T2/FLAIR hyperintensity in the posterior parietal lobe and occipital lobe bilaterally along the hamilton-white interface. 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 Potential causes for the finding include PRES associated with chemotherapy, hypertension and autoimmune disease such as lupus erythematosus. 3. A single small focus of susceptibility artifact in the left parietal lobe. There is no corresponding findings on recent CTs. Differential diagnosis include small focus of hemosiderin deposition or calcification. Dictated by: Harinder Puri M.D. on 09/01/2016 at 12:56 Transcribed by: REINIER on 09/01/2016 at 13:14 Approved by: Harinder Puri M.D. on 09/01/2016 at 13:23 Assessment & Plan 66 year old female past medical history most significant for metastatic pancreatic cancer presenting with refractory nausea and vomiting and exacerbation of pain likely related to a combination of metastatic disease and recent chemotherapy. Admitted for supportive care hydration further medical evaluation and treatment plan. 1. Metastatic pancreatic cancer - Continue IV fluids for now - Dr. Locke has been consulted and is following patient. - In addition Palliative care has become involved at this time for support with symptom management. - Dr. Locke would like to try radiation therapy for palliation of patient's symptoms. I discussed this with the patient and patient's today and they both agree. - We can get hospice to do an interval visit for now to start hospice once her radiation therapy is complete. - Had been advancing diet with great success, reconsider with improved mentation. -We will continue intravenous fluids for now. 2. Abdominal pain - As noted above this is likely related to metastatic disease process - Treatment with IV opiates as mentioned above has been very effective, pain good control. - Anticipate transition only oral therapies would be the goal prior to discharge. 3. Refractory nausea vomiting improved with oral Decadron. - With detection of central mass that appears cerebral swelling may certainly be contributing to this condition in addition to possible effects of chemotherapy and metastatic disease. Plan for radiation therapy. - We will continue IVFs as noted above for now - Goal to transition to oral agents as tolerated. - Currently patient is receiving Zofran and Phenergan PRN in addition to steroid drip started on recommendation of Palliative care for further symptoms relief. 4. Seizure like activity with central brain mass - Clinically patient definitely appears to have had seizure on 08/31/2016 likely a sequela of metastatic process to brain - She has been initiated on Keppra 1000 mg twice a day, and in addition will be provided dexamethasone to aid in reduction of swelling centrally to be prescribed by palliative care team. - We will start seizure precautions at this time 5. Hypertension - Progressive increase in BP with rehydration - Restarted home HCTZ but in the setting of IVFs to be used following contrast administration this may be inadequate. - Goal to discontinue IVFs with stable renal function in AM 6. Erosive gastritis - She was noted on endoscopy during previous admission beginning of July - P was prescribed Carafate, given nothing by mouth status will hold this medication. - Continue Protonix pump inhibitor IV. - Pt complaining of no active symptoms Disposition: Pending improvement in mentation in addition to discharge planning , advancement of diet, control of pain and nausea. Possible discharge in the next 24-48 hours. Pain Evaluation: Adequate Pain Control GI Prophylaxis: Not indicated VTE Mechanical Devices: Intermittant Pneumatic CD Resuscitation Status: DNR/DNI:Do Not Resuscitate/Intubate Rick Sarabia MD Sep 02, 2016 23:16
--- NOTE | 2016-09-02 23:18 | PCM.ADCARE ---
Advance Care Planning Note Purpose of Encounter: To discuss goals of care. Parties in Attendance: The patient and her and Dr. Sarabia. Decisional Capacity: The patient is now awake and alert and coherent. Subjective: The patient is feeling much better and in good spirits on high-dose Decadron. Objective: The patient is markedly improved on oral Decadron since yesterday. Goals of Care Determinations: Patient is going to go through with the plan for palliative radiation to the brain mass that has recently been discovered. She also agrees to have a hospice informative visit and will consider transitioning to hospice once her radiation therapy is complete. Plan: As above. CODE STATUS: Patient is to remain a DNR/DNI. Time Spent Adv.Care Planning: Approximately 25 minutes was spent in advanced care planning. Adv. Care Plan Documenation: As above. Rick Sarabia MD Sep 02, 2016 23:18
--- NOTE | 2016-09-03 03:18 | NUR ---
Bedalarm Due to diarrhea incontinence jumped out of bed and was [facility] into bathroom within 20 seconds of bedalarm sounding. Gown and linen changed, reoriented to call light use for exiting bed.
[2016-09-03] MEDS: 0.9% NaCl + KCl 20 mEq/L 1,000 ML IV SCH ×2 (04:28→11:48)
[2016-09-03 05:21] LABS: BASOPHILS % (AUTO) 0 % (0-3); EOSINOPHILS % (AUTO) 0.3 % (0-5); MONOCYTES % (AUTO) 7.2 % (4-12); Mean Corpuscular Hemoglobin 26.9 pg (27.0-35.0); Mean Corpuscular Volume 86.1 fL (81-100); NEUTROPHILS % (AUTO) 75.7 % (40-74); Platelet Count 167 bil/L (150-400)
[2016-09-03 05:53] LABS: Magnesium 1.9 mg/dL (1.6-2.6)
[2016-09-03 05:55] VITALS: BP 115/68; PULSE 64; RESP 17; O2SAT 99
[2016-09-03] MEDS: Pantoprazole 4 mg/mL 10 mL Inj IVPUSH SCH (07:45)
[2016-09-03] MEDS: Morphine ER 15 mg (MS Contin) Tablet PO SCH (07:45)
[2016-09-03] MEDS: Potassium Chloride 20 mEq SR Tablet PO SCH (07:46)
[2016-09-03] MEDS: levETIRAcetam Inj 1,000 MG in 0.9% Sodium Chloride 100 ML IV SCH (09:18)
--- NOTE | 2016-09-03 12:00 | PCM.DIMED ---
Discharge Instructions Date of Service Sep 03, 2016 Dates of Hospitalization Aug 28, 2016 at 15:16 Discharge Diagnosis Discharge Diagnosis Metastatic Pancreatic Cancer Diet Discharge Diet: No restrictions (The patient may return to her usual diet gradually as tolerated.) Activity Discharge Activity: No restrictions (The patient may return to her usual activities gradually as tolerated.) Patient Instructions Follow-up Provider: Sanju Longo MD Follow-up with PCP in: 1 week Provider: [facility] Follow-up in: 1 week (Patient to go to the [facility] 03/12.) Rick Sarabia MD Sep 03, 2016 12:00
[2016-09-03] MEDS ORDERED: OLAN5TAB25 PO (12:26)
[2016-09-03] MEDS ORDERED: MORP-32 PO (12:26)
[2016-09-03] MEDS ORDERED: HYDR25TA4 PO (12:26)
[2016-09-03] MEDS ORDERED: SENN-133 PO (12:26)
[2016-09-03] MEDS ORDERED: Dexamethasone PO (12:26)
[2016-09-03] MEDS ORDERED: POTA20TA16 PO (12:26)
--- NOTE | 2016-09-03 12:39 | PCM.DC.MED ---
Discharge Summary Date of Service Sep 03, 2016 Dates of Hospitalization Date of Hospital Admission Aug 28, 2016 at 15:16 Date of Discharge: Sep 03, 2016 Providers: Admitting Physician: Wong Rodriguez DO Primary Care Physician: Barney Murry MD Attending Physician: Wong Rodriguez DO Diagnosis at Time of Discharge Diagnosis at Time of Discharge Metastatic Pancreatic Cancer Consultations Dr. Locke of oncology, and Dr. Sanju Kauffman of palliative care. Procedures XRay, CTs & MRIs PROCEDURE: CT BRAIN WITHOUT CONTRAST ([id number]) INDICATIONS: fall out of bed TECHNIQUE: Noncontrast 4.5 mm thick angled axial sections acquired from the foramen magnum to the vertex, with coronal reformats. COMPARISON: [facility], CT, CT CHEST ABD PELVIS W CON, 08/31/2016, 11:50. [facility], CT, CT BRAIN WO CON, 08/31/2016, 13:00. FINDINGS: Image quality: Excellent. CSF spaces: Basal cisterns are patent. No extra-axial fluid collections. The ventricles are symmetric in size and shape. Brain: There is a 1.5 cm mass in the right inferior cerebellum, as seen on last exam. No intracranial bleeds or masses. There is cerebral volume loss for age, with resultant ventricular and sulcal prominence. There are periventricular and deep white matter chronic small vessel ischemic changes. There is intracranial internal carotid artery atherosclerosis. Skull and face: Calvarium and visualized facial bones appear intact, without suspicious lesions. There is a right frontal subscalp hematoma. Sinuses: Visualized sinuses and mastoids are clear. IMPRESSION: 1. A 1.5 cm mass in the right inferior cerebellum. No acute intracranial abnormalities. 2. Cerebral volume loss and chronic microvascular ischemic changes. 3. Right frontal subscalp hematoma. No significant discrepancy with the marine engineering consultant radiology preliminary report. Dictated by: Harinder Puri M.D. on 09/01/2016 at 8:00 Approved by: Harinder Puri M.D. on 09/01/2016 at 8:03 PROCEDURE: MRI SEIZURE BRAIN WITH AND WITHOUT CONTRAST ([id number]) INDICATIONS: SEIZURE EPISODE TECHNIQUE: Noncontrast axial T1 spin echo, axial T2 fast spin echo, sagittal and axial FLAIR, axial gradient echo, axial diffusion and ADC, coronal thin-slice T2 FSE through the brain. Optional contrast, followed by axial and coronal 3D VIBE or T1 spin fat saturation sequences through the brain. COMPARISON: [facility], CT, CT CHEST ABD PELVIS W CON, 08/31/2016, 11:50. [facility], CT, CT ABD PELVIS W CON, 07/27/2016, 16:44. [facility], CT, CT BRAIN WO CON, 09/01/2016, 5:33. [facility], CT, CT BRAIN WO CON, 08/31/2016, 13:00. FINDINGS: Image quality: Excellent. CSF spaces: Ventricles are normal in size and shape. Basal cisterns are patent. No extra-axial fluid collections. Brain: There is a 1.5 x 1.6 cm cystic mass in the right inferior cerebellum demonstrating peripheral ring enhancement. There is mild vasogenic edema surrounding the lesion. There are multiple foci of T2/FLAIR hyperintensity involving the posterior parietal lobe and occipital lobe bilaterally along the white hamilton interface. No mass effect or midline shift. There is a single, small focus of susceptibility artifact on gradient echo image in the left parietal lobe just posterior to the left lateral ventricle. No associated abnormal intracranial enhancement. There is mild cerebral volume loss. Mild periventricular white matter chronic small vessel ischemic changes are present. Diffusion weighted images demonstrate a few foci of hyperintensity with no definitive correlates on ADC map, most likely caused by T2 shine through. Brainstem appear normal. Normal intravascular flow voids are present. The hippocampal regions appear normal and symmetric in morphology. Skull and face: Calvarial marrow signal is normal. Orbits appear normal. Sinuses: Sinuses and mastoids are clear. IMPRESSION: 1. A 1.5 x 1.6 cm cystic mass in the right inferior cerebellum with ring enhancement, suspicious for a metastatic lesion. A differential diagnosis is a parasitic cyst. There is mild vasogenic edema but no mass effect or midline shift. 2. There are multiple foci of T2/FLAIR hyperintensity in the posterior parietal lobe and occipital lobe bilaterally along the hamilton-white interface. 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 Potential causes for the finding include PRES associated with chemotherapy, hypertension and autoimmune disease such as lupus erythematosus. 3. A single small focus of susceptibility artifact in the left parietal lobe. There is no corresponding findings on recent CTs. Differential diagnosis include small focus of hemosiderin deposition or calcification. Dictated by: Harinder Puri M.D. on 09/01/2016 at 12:56 Transcribed by: REINIER on 09/01/2016 at 13:14 Approved by: Harinder Puri M.D. on 09/01/2016 at 13:23 Brief History Per admission H&P: "Patient is a 66-year-old female recently discharged from the hospital for refractory nausea vomiting abdominal pain associated with metastatic pancreatic cancer now re-presenting via EMS for similar complaint. Following discharge on she notes having a couple of good weeks, however symptoms including nausea vomiting returned making it difficult to take her medications, occluding pain medications which led to an exacerbation of abdominal pain. She has completed 3 cycles of chemotherapy last of which was Folfirinox which she finished in the end of July. She notes the cycle in particular created a good deal of nausea and seems to have exacerbated pain symptoms as well. She has been taking octreotide and receiving Nubain injections made in abdominal pain with some benefit. Her fourth round of chemotherapy was scheduled to begin later this week, following which there was a planned obtain additional studies to assess for efficacy of treatment. Her original diagnosis was in April 2016, at which point diseases are identified to have metastasized beyond pancreas. During my evaluation ER, patient is relatively sedate following administration of IV opiate therapy in addition to anti-medic agents, but is actually much more comfortable. She endorses dry mouth but has achieved some relief in both pain and nausea. She has no other acute complaints, she is still experiencing some discomfort specifically of the right upper quadrant. Denies any shortness of breath or palpitations. She is eating very little over the past 24 hours due to nausea, but nothing as stated. Usually denies any fever or chills." Patient was admitted to the hospitalist service for further evaluation and treatment. Hospital Course The patient was a 66 year old female past medical history most significant for metastatic pancreatic cancer presenting with refractory nausea and vomiting and exacerbation of pain likely related to a combination of metastatic disease and recent chemotherapy. Admitted for supportive care hydration further medical evaluation and treatment plan. 1. Metastatic pancreatic cancer - Continue IV fluids for now - Dr. Locke has been consulted and was following patient. - In addition Palliative care has become involved at this time for support with symptom management. - Dr. Locke would like to try radiation therapy for palliation of patient's symptoms. I discussed this with the patient and patient's today and they both agree. - We can get hospice to do an interval visit for now to start hospice once her radiation therapy is complete. - Had been advancing diet with great success, and patient will now be able to eat as tolerated.. -We will continue intravenous fluids for now. 2. Abdominal pain - As noted above this is likely related to metastatic disease process - Treatment with PO opiates has been very effective, with pain good control. - Anticipate transition only oral therapies would be the goal prior to discharge. 3. Refractory nausea vomiting improved with oral Decadron. - With detection of central mass that appears cerebral swelling may certainly be contributing to this condition in addition to possible effects of chemotherapy and metastatic disease. Plan for radiation therapy. - We will discontinue IVFs. - Goal to transition to oral agents as tolerated. 4. Seizure like activity with central brain mass - Clinically patient definitely appears to have had seizure on 08/31/2016 likely a sequela of metastatic process to brain - She has been initiated on Keppra 1000 mg twice a day, and in addition will be provided dexamethasone to aid in reduction of swelling centrally to be prescribed by palliative care team. - Patient has had no further seizure activity. 5. Hypertension - Progressive increase in BP with rehydration - Restarted home HCTZ. 6. Erosive gastritis - She was noted on endoscopy during previous admission beginning of July - P was prescribed Carafate and/or continued home - Continue Protonix PO - Pt complaining of no active symptoms Disposition: The patient has made dramatic improvement on oral Decadron will therefore discharge home today so that patient can enjoy as much quality time at home and she can before being enrolled into hospice care. Exam Vital Signs (Last) Date Time Temp Pulse Resp B/P Pulse Ox O2 Delivery O2 Flow Rate FiO2 09/03/16 05:55 36.6 64 17 115/68 99 Room Air 08/31/16 12:51 2.00 Exam General: Patient is much more awake and alert and conversant. She is in good spirits. HEENT: Head is significant for ecchymosis in the right periorbital area which has improved today. There does not appear to be any involvement of the right eyeball. Eyes: Pupils are equally round and reactive to light and accommodation. Extraocular muscles are intact. Sclera are white, anicteric. Subconjunctival mucosa is pink. Ears and nose are unremarkable. Oropharynx: There is no mucosal lesions, there is no thrush, there is no pharyngitis. Neck: Is supple, there are no nodes, or masses or tenderness. Chest: Is clear to auscultation and percussion. There are a few bibasilar crackles. Heart: Rate, rhythm is regular. There is no new murmur, rub or gallop. Abdomen: Good bowel sounds are present. Abdomen is soft, nontender, no organomegaly or masses were appreciated. Extremities: Are symmetrical and well perfused. There is no edema, there is no cellulitis, no rash. Neurologic: There are no focal neurological deficits. Cranial nerves II through XII are intact. There are no sensory or motor deficits. Psychiatric: Patients mood is calm and shows no sign of agitation. Genital: Deferred Rectal: Deferred Test 08/28/16 13:24 08/30/16 09:15 09/03/16 05:06 Hold Purple Top Tube Received (Received) Hold Blue Top Tube Received (Received) Lipase 82U/L (13-60) Hold [place] Top Tube Received (Received) Hematology Comments Rbc White Blood Count 7.5th/mm3 (3.8-10.1) Red Blood Count 3.09mil/mm3 (3.90-5.20) Hemoglobin 8.3g/dL (12.0-15.6) Hematocrit 26.6% (35.0-46.0) Mean Corpuscular Volume 86.1fL (81-100) Mean Corpuscular Hemoglobin 26.9pg (27.0-35.0) Mean Corpuscular Hemoglobin Concent 31.2% (32.0-37.0) Red Cell Distribution Width 22.2% (12.3-15.4) Platelet Count 167bil/L (150-400) Neutrophils (%) (Auto) 75.7% (40-74) Lymphocytes (%) (Auto) 16.3% (14-46) Monocytes (%) (Auto) 7.2% (4-12) Eosinophils (%) (Auto) 0.3% (0-5) Basophils (%) (Auto) 0% (0-3) Sodium Level 143mEq/L (134-144) Potassium Level 3.9mEq/L (3.5-5.2) Chloride Level 106mEq/L (97-108) Carbon Dioxide Level 26mmol/L (18-29) Blood Urea Nitrogen 11mg/dL (8-27) Creatinine 0.53mg/dL (0.57-1.00) Estimat Glomerular Filtration Rate 165mL/min (>59) Glucose Level 119mg/dL (60-99) Calcium Level 8.0mg/dL (8.5-10.1) Magnesium Level 1.9mg/dL (1.6-2.6) Total Bilirubin 0.4mg/dL (0.0-1.2) Aspartate Amino Transf (AST/SGOT) 29U/L (0-50) Alanine Aminotransferase (ALT/SGPT) 13U/L (0-32) Alkaline Phosphatase 172U/L (25-165) Total Protein 4.8g/dL (6.4-8.4) Albumin 2.8g/dL (3.4-5.0) Discharge Medications Discharge Medications ([Dexamethasone]) 2 MG TABLET 4 MG PO BIDWM Prescribed by: KELLY SARABIA MD Hydrochlorothiazide (Hydrochlorothiazide) 25 Mg Tablet 12.5 MG PO DAILY Prescribed by: KELLY SARABIA MD Lipase/Protease/Amylase (Creon ) 12,000 Unit Capsule 1 CAPSULE PO 15-30min before meal (Reported) Morphine Sulfate ER (Morphine Sulfate ER) 15 Mg Tablet 15 MG PO BID Prescribed by: KELLY SARABIA MD Olanzapine ODT (Zyprexa Zydis) 5 Mg Tablet 2.5 MG PO HS Prescribed by: KELLY SARABIA MD Pantoprazole DR (Protonix) 40 Mg Tablet 40 MG PO BID Prescribed by: Natty EWING Potassium Chloride (Potassium Chloride) 20 Meq Tab.er.prt 20 MEQ PO BID Prescribed by: KELLY SARABIA MD Sertraline HCl (Zoloft) 50 Mg Tablet 50 MG PO DAILY (Reported) Sucralfate (Carafate) 1 Gm Tablet 1,000 MG PO TIDAC Prescribed by: Natty EWING As needed Diphenoxylate/Atropine 2.5-0.025 mg (Lomotil 2.5-0.025 mg) 1 Each Tablet 1 TABLET PO QID PRN PRN For Diarrhea or Loose Stool (Reported) Hydrocodone-Acetaminophen 5-325 mg (Hydrocodone-Acetaminophen 5-325 mg) 1 Each Tablet 1-2 TABLET PO DAILY PRN PRN For Pain (Reported) Lorazepam (Lorazepam) 0.5 Mg Tablet 0.5 MG PO HS PRN PRN For Insomnia (Reported ) Ondansetron (Zofran) 8 Mg Tablet 8 MG PO Q6H PRN PRN For Nausea Prescribed by: Natty EWING Prochlorperazine Maleate (Compazine) 10 Mg Tablet 10 MG PO Q6H PRN PRN For Nausea Prescribed by: Natty EWING Sennosides (Senna) 8.6 Mg Tablet 17.2 MG PO BID PRN PRN For Constipation Prescribed by: KELLY SARABIA MD Followup Plan Disposition: Patient is being discharged home with her . Discharge Diet: No restrictions (The patient may return to her usual diet gradually as tolerated.) Discharge Activity: No restrictions (The patient may return to her usual activities gradually as tolerated.) Follow-up Provider: Sanju Longo MD Follow-up with PCP in: 1 week Provider: [facility] Follow-up in: 1 week (Patient to go to the radiatiuon clinic 03/12.) Time spent Time spent on discharging this patient was greater than 35 minutes, over half of which was involved in counseling and coordination of care. Rick Sarabia MD Sep 03, 2016 12:39
[2016-09-03] MEDS ORDERED: LEVE100014 PO (12:43)
[2016-09-03] MEDS ORDERED: PANT40TA2 PO (12:44)
--- NOTE | 2016-09-03 13:20 | NUR ---
discharge paperwork reviewed, no questions at this time. pt is returning home in private car with her . [employer] will transport pt with her belongings to the car. pt denies pain/distress
--- NOTE | 2016-09-03 13:56 | NUR ---
Social Work: Discharge Data: Pt is on day 6 of hospitalization. EMR reviewed. Pt is medically stable to discharge today. Palliative radiation has been coordination for 09/05. [facility] who states they have pt on their list to set up an info visit with. They have been attempting to contact the and will attempt contact Monday. They may be able to do a hospice info visit [facility]. SW met with pt and at bedside regarding discharge plan, hospice info visit. SW updated pt of hospice info visit in the community, reminded her that she can always call Hospice with any questions or concerns. Pt and spouse agreeable. Pt to return home with spouse, transport via POV. Pt and spouse deny any additional discharge planning needs. Assessment: Pt with assistance at baseline from spouse. Plan: Pt to begin palliative radiation Tuesday 09/05. [facility] to follow pt in the community for info visit. Pt to return home with spouse, transport via POV. Pt and spouse deny any additional discharge planning needs. Britt Estrada MSW
[2016-09-03] MEDS ORDERED: levETIRAcetam Inj 1,000 MG in IV Premix 1 EACH IV SCH (20:30)
--- NOTE | 2016-09-05 07:05 | CCR CONS ---
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 Stage: Clinical stage IV. HISTORY OF PRESENT ILLNESS: I am seeing patient at the request of Dr. Locke and Dr. Granados regarding provision of whole-brain irradiation for newly discovered brain metastases as detailed below. 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 Locke in May 2016 following a 3-4 month history of vague abdominal epigastric discomfort. CT scan of the chest, abdomen and pelvis demonstrated a mass in the tail of the pancreas with several hepatic lesions worrisome for metastatic disease. The above was performed on June 03, 2016. It was subsequently determined that this proved to be a poorly differentiated high-grade neuroendocrine carcinoma, which in addition to the above was locally invading the spleen and the lateral aspect of the stomach wall. She was treated with aggressive combination chemotherapy including 5-FU, irinotecan with long-acting octreotide for three cycles, but with subsequent CT scan demonstrating no improvement, and in fact, slight increase in size of the lesions. She was, therefore, judged to have chemo refractory disease. Dr. Locke recommended discontinuing the chemotherapy and focusing on palliative care. Two days ago, the patient's daughter describes a seizure which she witnessed as initially gazing off into space and then mumbling. This episode lasted for several minutes. A CT scan of the brain as well as an MRI scan were performed. The latter study done yesterday, September 01, 2016, was notable for 1.5 x 1.6 cm cystic mass in the right inferior cerebellum demonstrating peripheral ring enhancement with mild vasogenic edema surrounding. Multiple foci of T2 FLAIR hyperintensity involving the posterior parietal lobe and occipital lobes bilaterally along the great white interface was also noted, which is interpreted as consistent with chemotherapy hypertension or autoimmune disease effect, i.e. posterior reversible encephalopathy syndrome, or PRES. I note that a CT scan of the cervical spine was obtained on September 01, 2016, which showed no fractures. lesion is noted, however, in the right C3 facet joint suspicious for metastases. , the patient is having no pain in this region. PAST MEDICAL HISTORY: Shingles, hyperlipidemia, hypertension, partial knee replacement in 2016, history of . MEDICATIONS AT HOME: Lorazepam p.r.n., Vicodin as needed, Excedrin for headaches, lovastatin, hydrochlorothiazide, and lisinopril. 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 She is seen with very supportive and daughter. She drinks one glass of wine per evening. She smoked for 30 years, quitting a few months preceding. FAMILY HISTORY: Prostate cancer in brother x2. No family history of pancreatic cancer. REVIEW OF SYSTEMS: [place] is updated with her. She notes some mild recent headaches. She notes that she has a chronic history of same, but it is perhaps a little bit worse in the last month or so. No true change in mentation, vision, hearing, smell, shortness of breath, hemoptysis, or cough. Food is absolutely repulsive. She feels she has lost about 30-35 pounds and really has very little interest in eating. She is not living in pain, including, no pain in the C3 region. She denies vaginal, rectal, urinary bleeding or discharge. Remainder of comprehensive review of systems is negative. PHYSICAL EXAMINATION: She is lying in bed. She has some bruising around the right orbit. She is completely coherent and conversant and seems energetic as we speak. Vital signs are stable. She is afebrile. There is no icterus, no jaundice, no generalized rashes. No pallor. No peripheral lymphadenopathy. Chest sounds are clear in all lung holliday. There is no JVD distention. There is no S3, S4, murmur, or rub. There is no hepatosplenomegaly. Could not feel her pancreatic tail mass externally. There is no groin nodes. There is no extremity edema. Cranial nerves 2-12 are intact except patient has a hard time finding her nose when asked from her left side with eyes closed though she can do it briskly with her right arm. Fine repetitive motions of her fingers seems normal. I did not get her up and walk, but her feels that she has perhaps listed a few times to the right side. RADIOLOGY/LABORATORIES: CT scan of the brain was done September 01, 2016. Demonstrated a 1.5 cm right inferior cerebellar lesion, right subscapular hematoma, cerebral volume loss. MRI scan of the brain as detailed above. RADIATION ONCOLOGY PLAN: I have discussed patient's case with Dr. Locke. The overall prognosis is very guarded and this would not be appropriate context for more heroic treatment such as surgical resection or stereotactic radiosurgery. The request is for quickly arranged external radiation keeping things simple. I discussed these issues with the patient's family and specifically focused on the fact that there has been no biopsy of this lesion and, therefore, the above diagnosis is clinical. I asked whether the patient feels comfortable proceeding without biopsy on the assumption that this constitutes a metastases as opposed to infection and the patient and family relate that they do. We will, therefore, bring the patient over for simulation at our first opportunity, i.e. at 1:00 on Monday, and simulate her. Will then plan on delivering 300 cGy x10 to the whole brain. I have discussed the alternatives, pragmatics, and possible short and long-term side effects, including, but not limited to such issues as skin, i.e. scalp, erythema, hair loss, fatigue, depression of platelets or white count, subacute effects, i.e. Lhermitte's and demyelinization phenomena, which were described in common [place], and true risk of late effects, including focal necrosis of brain tissue causing any manner of loss emanating from such tissue, such as vision, hearing, speech, ataxia, dementia, even . The patient's questions are answered to her satisfaction. She would like to proceed with treatment. Thank you for including us in her care.
--- NOTE | 2016-09-05 08:43 | NUR ---
Palliative care note D/A: Please note that POLST was discussed with pt by Dr. Granados on Monday09/02/16. It indicates that pt goals are for comfort and quality of life. She elected to be DNAR with comfort measures only and also elected to use antibx when infection occurs, with comfort as the goals as well as no medically assisted nutrition by tube. Note that POLST was not signed. Discussion with Dr. Granados indicates that pt was comfortable with goal and POLST direction over past discussions but when time came to sign, she was a little less than lucid and indicated she was not sure about signing. Dr. Granados discussed with spouse who took home original with plan of having pt sign with the plan of having her sign post dc. Have scanned and sent document to [facility]. Email indicates document not signed. P: NO further need for palliative care to follow. [facility] CCM Addendum: 09/05/16 at [address] [facility] Note amendment D/A: Phone call to [facility] and discuss with Merna. She is working on communicating with pt/spouse in order to set up info visit. This worker will call to check in within a few days. If pt has signed on to [facility]- no further need for PC follow up or consideration of OPC. P: Palliative care to follow. [facility]
== END 2016-09-03 13:55 | disposition home or self-care (01) | DRG 947 ==
LOC: SED 12:51 → MPC 15:16
PROVIDERS: ADMIT Family Medicine; ATTEND Family Medicine
DX: G89.3 Neoplasm related pain (acute) (chronic) (principal); G93.6 Cerebral edema; C7A.1 Malignant poorly differentiated neuroendocrine tumors; N17.9 Acute kidney failure, unspecified; C25.8 Malignant neoplasm of overlapping sites of pancreas; C78.7 Secondary malignant neoplasm of liver and intrahepatic bile duct; C79.31 Secondary malignant neoplasm of brain; C78.89 Secondary malignant neoplasm of other digestive organs; E86.0 Dehydration; R56.9 Unspecified convulsions; Z92.21 Personal history of antineoplastic chemotherapy; Z66 Do not resuscitate; Z87.891 Personal history of nicotine dependence; Z51.5 Encounter for palliative care; R11.2 Nausea with vomiting, unspecified; I10 Essential (primary) hypertension; K29.00 Acute gastritis without bleeding